=== PATIENT | female | born 1945 | race Two or more races ===

== ENCOUNTER 2020-05-04 10:10 | Outpatient (REF) | payer MEDICARE, MEDICAID, SELFPAY ==
[2020-05-04 10:46] LABS: MANUAL DIFF FLAG NO
[2020-05-04 10:53] LABS: Basophils Absolute Auto 0.1 X10*3/uL (0.0-0.2); Basophils Percent Auto 0.7 % (0-2); Eosinophils Absolute Auto 0.2 X10*3/uL (0.0-0.4); Eosinophils Percent Auto 3.2 % (0-4); Hematocrit 38.3 % (37-47); Hemoglobin 12.4 g/dl (12.0-16.0); Imm Gran Abs Auto 0.03 X10*3/uL (0.00-0.03); Imm Gran Pct Auto 0.4 % (0.0-0.4); Lymphocytes Absolute Auto 2.2 X10*3/uL (1.2-4.9); Lymphocytes Percent Auto 30.2 % (20-40); Mean Corpuscular HGB Conc 32.4 g/dl (31.0-35.0); Mean Corpuscular Hemoglobin 28.4 pg (27.0-33.0); Mean Corpuscular Volume 87.8 fL (80-98); Mean Platelet Volume 10.3 fL (9.4-12.3); Monocytes Absolute Auto 0.5 X10*3/uL (0.1-1.2); Monocytes Percent Auto 7.1 % (2-11); Neutrophils Absolute Auto 4.3 X10*3/uL (2.0-8.3); Neutrophils Percent Auto 58.4 % (45-73); Platelet Count 288 X10*3/uL (160-400); Red Blood Count 4.36 X10*6/uL (4.20-5.50); Red Cell Distribution Width 14.3 % (11.0-16.0); White Blood Count 7.4 X10*3/uL (4.8-10.8)
[2020-05-04 11:32] LABS: Estimated Average Glucose 120 mg/dL; Hemoglobin A1c % 5.8 %
[2020-05-04 11:46] LABS: Alanine Aminotransferase 17 U/L (0-31); Alkaline Phosphatase 72 U/L (39-117); Anion Gap 15 (12-20); Aspartate Amino Transferase 15 U/L (5-31); Bilirubin Total 0.8 mg/dL (0.0-1.0); Blood Urea Nitrogen 18 mg/dL (9-16); Calcium 9.2 mg/dL (8.4-10.2); Carbon Dioxide 30 mmol/L (22-29); Chloride 100 mmol/L (96-108); Cholesterol 184 mg/dL; Estimated Glomerular Filt Rate 58; Glucose Fasting 101 mg/dL (60-99); HDL Cholesterol 52 mg/dL; LDL Cholesterol Calculated 107 mg/dl; Potassium 4.2 mmol/l (3.3-5.1); Sodium 141 mmol/L (135-145); Total Protein 6.9 g/dL (6.5-8.0); Triglycerides 128 mg/dL
[2020-05-04 11:53] LABS: Microalbum/Creatinine Ratio Ur 7.2 ug/mg cr
== END 2020-05-04 10:11 | disposition home or self-care (01) ==
LOC: HO.LAB 10:10
PROVIDERS: PCP Physician Assistant; Visit Provider Physician Assistant
DX: E11.9 Type 2 diabetes mellitus without complications (principal); E78.2 Mixed hyperlipidemia; I10 Essential (primary) hypertension
CPT/HCPCS: 36415; 80053; 80061; 82043; 83036; 84443; 85025

== ENCOUNTER 2020-05-20 08:40 | Outpatient (REF) | payer MEDICARE, MEDICAID, SELFPAY ==
--- NOTE | ~2020-05-20 | XR_ITS ---
EXAMINATION: XR CHEST CLINICAL INFORMATION: Cough COMPARISON: Previous chest CTA September 2007 and chest x-ray October 2006 TECHNIQUE: 2 views of the chest were obtained. FINDINGS: The cardiac silhouette is slightly enlarged but stable. Hilar and mediastinal contours are unremarkable. The lungs are clear. There is no pleural effusion or pneumothorax. There are degenerative changes of the spine. XR/XR chest 2V IMPRESSION: Slightly enlarged cardiac silhouette. No evidence for acute disease in the chest.
== END 2020-05-20 08:41 | disposition home or self-care (01) ==
LOC: HO.LAB 08:40
PROVIDERS: PCP Physician Assistant; Visit Provider Physician Assistant
DX: R05 Cough (principal)
CPT/HCPCS: 71046

== ENCOUNTER 2020-07-21 11:49 | Outpatient (REF) | payer MEDICARE, MEDICAID, SELFPAY ==
--- NOTE | ~2020-07-21 | MM_ITS ---
EXAMINATION: MM SCREENING DIGITAL BREAST TOMOSYNTHESIS, BILATERAL CLINICAL INFORMATION: Screening. Asymptomatic. The lifetime risk of breast cancer based on the Tyrer-Cuzick Model is 3%. COMPARISON: Mammography: 09/10/2018, 03/15/2017, 02/25/2017 TECHNIQUE: Digital breast tomosynthesis is performed in both the craniocaudal and mediolateral oblique views along with computer-aided detection (CAD). Synthesized 2D images are generated from the tomosynthesis. FINDINGS: There are scattered areas of fibroglandular density (ACR BI-RADS breast composition Category b). There is no significant mass or architectural abnormality or developing density. Biopsy clip marker again noted central left breast. The axilla and skin contours are unremarkable. Again, there are multiple bilateral ductal secretory calcifications again seen. The right breast has increased calcifications mid outer quadrant, some are likely vascular and some may be early ductal secretory. Patient will be recalled to further characterize. MM/MM tomosynthesis screening BI IMPRESSION: 1. Right: Increased calcifications mid outer right breast superimposed upon other chronic ductal secretory calcifications. 2. Left: No mammographic evidence of malignancy. ASSESSMENT: BI-RADS 0: Incomplete - Need Additional Imaging Evaluation RECOMMENDATION: 1. Additional views of the right breast (magnification CC, magnification ML). 2. Radiology department staff will contact the patient for additional imaging. This patient's information was entered into a reminder system with a target due date for their next mammogram.
== END 2020-07-21 11:50 | disposition home or self-care (01) ==
LOC: HO.MAMMO 11:49
PROVIDERS: PCP Physician Assistant; Visit Provider Obstetrics & Gynecology Female Pelvic Medicine and Reconstructive Surgery
DX: Z12.31 Encounter for screening mammogram for malignant neoplasm of breast (principal)
CPT/HCPCS: 77063; 77067

== ENCOUNTER 2020-08-10 10:03 | Outpatient (REF) | payer MEDICARE, MEDICAID, SELFPAY ==
--- NOTE | ~2020-08-10 | MM_ITS ---
EXAMINATION: MM DIAGNOSTIC DIGITAL MAMMOGRAPHY, RIGHT CLINICAL INFORMATION: Recall from screening for increased calcifications mid outer right breast superimposed upon other chronic ductal secretory calcifications. Prior history contralateral benign left breast stereotactic biopsy 07/19/2006. COMPARISON: Mammography: 07/21/2020, 09/10/2018. TECHNIQUE: Digital mammography is performed in the following views: Magnification CC x3, magnification ML x2. FINDINGS: There are scattered areas of fibroglandular density (ACR BI-RADS breast composition Category b). The additional views confirm new heterogeneous segmental calcifications in the outer right breast. Calcifications are in small groups at the anterior to mid extent and in ductal distribution mid to posterior extent. They span at least 6 cm in length anterior to posterior. Results are discussed with the patient at time of visit. Stereotactic sampling is recommended. Would consider sampling at two locations to insure more comprehensive sampling of the finding. MM/MM added views RT IMPRESSION: New subsegmental heterogeneous calcifications outer right breast. ASSESSMENT: BI-RADS 4: Suspicious RECOMMENDATION: Stereotactic sampling segmental heterogeneous right breast calcifications, preferably at two locations if patient able.
== END 2020-08-10 10:04 | disposition home or self-care (01) ==
LOC: HO.MAMMO 10:03
PROVIDERS: Visit Provider Obstetrics & Gynecology Female Pelvic Medicine and Reconstructive Surgery
DX: R92.1 Mammographic calcification found on diagnostic imaging of breast (principal)
CPT/HCPCS: 77065

== ENCOUNTER 2020-08-27 10:00 | Outpatient (REF) | payer MEDICARE, MEDICAID, SELFPAY ==
--- NOTE | ~2020-08-27 | MM_ITS ---
EXAMINATION: STEREOTACTIC TOMOSYNTHESIS-GUIDED VACUUM-ASSISTED BREAST BIOPSY x2, RIGHT SPECIMEN RADIOGRAPH, RIGHT POST PROCEDURE DIGITAL MAMMOGRAM, RIGHT CLINICAL INFORMATION: Indeterminate regions of calcifications.. COMPARISON: August 10, 2020 and studies dating back to October 08, 2015. TECHNIQUE/PROCEDURE: Informed consent was obtained from the patient after discussion of the benefits, risks, and alternatives to biopsy today. Patient appeared to understand. Gave opportunity for questions. Patient signed consent form. BIOPSY TABLE: [employer] Affirm Prone Biopsy System. LESION: 2 groupings of calcifications within the upper outer aspect of the right breast. LOCAL ANESTHESIA: 20 mL 1% lidocaine; 20 mL 1% lidocaine with epinephrine. DERMATOTOMY: 2 skin fazal dermatotomies performed. NEEDLE: [employer] 9-gauge vacuum assisted core biopsy device. APPROACH: craniocaudal. TARGETING: Digital breast tomosynthesis used for targeting. CORES: 12 at each of the 2 sites. CLIP: Buckle at the closest site to the nipple and cork at the more posterior positioning. SPECIMEN RADIOGRAPH: Specimen radiograph is taken in separate room using digital mammography. The index calcifications are in the excised cores. POST PROCEDURE UNILATERAL DIGITAL MAMMOGRAM: The post biopsy mammogram is performed in separate room using separate digital mammography equipment from the biopsy procedure. 2 views are obtained. There are scattered areas of fibroglandular density (breast composition category: b). The clip marker is in position. The calcifications are decreased at the biopsy sites. The patient tolerated the procedure well. No immediate complications. Home instructions reviewed with the patient. Final pathology results are pending. MM/MM stereotactic biopsy RT IMPRESSION: 1. Digital tomosynthesis-guided core biopsy x2 right breast with clip placement. 2. Specimen radiograph taken and post procedure mammogram. There is satisfactory positioning of the biopsy clips. 3. Final pathology results pending. An addendum report will be issued.
--- NOTE | ~2020-08-27 | MM_ITS ---
EXAMINATION: STEREOTACTIC TOMOSYNTHESIS-GUIDED VACUUM-ASSISTED BREAST BIOPSY x2, RIGHT SPECIMEN RADIOGRAPH, RIGHT POST PROCEDURE DIGITAL MAMMOGRAM, RIGHT CLINICAL INFORMATION: Indeterminate regions of calcifications.. COMPARISON: August 10, 2020 and studies dating back to October 08, 2015. TECHNIQUE/PROCEDURE: Informed consent was obtained from the patient after discussion of the benefits, risks, and alternatives to biopsy today. Patient appeared to understand. Gave opportunity for questions. Patient signed consent form. BIOPSY TABLE: [employer] Affirm Prone Biopsy System. LESION: 2 groupings of calcifications within the upper outer aspect of the right breast. LOCAL ANESTHESIA: 20 mL 1% lidocaine; 20 mL 1% lidocaine with epinephrine. DERMATOTOMY: 2 skin fazal dermatotomies performed. NEEDLE: [employer] 9-gauge vacuum assisted core biopsy device. APPROACH: craniocaudal. TARGETING: Digital breast tomosynthesis used for targeting. CORES: 12 at each of the 2 sites. CLIP: Buckle at the closest site to the nipple and cork at the more posterior positioning. SPECIMEN RADIOGRAPH: Specimen radiograph is taken in separate room using digital mammography. The index calcifications are in the excised cores. POST PROCEDURE UNILATERAL DIGITAL MAMMOGRAM: The post biopsy mammogram is performed in separate room using separate digital mammography equipment from the biopsy procedure. 2 views are obtained. There are scattered areas of fibroglandular density (breast composition category: b). The clip marker is in position. The calcifications are decreased at the biopsy sites. The patient tolerated the procedure well. No immediate complications. Home instructions reviewed with the patient. Final pathology results are pending. MM/MM stereotactic biopsy ea add IMPRESSION: 1. Digital tomosynthesis-guided core biopsy x2 right breast with clip placement. 2. Specimen radiograph taken and post procedure mammogram. There is satisfactory positioning of the biopsy clips. 3. Final pathology results pending. An addendum report will be issued.
== END 2020-08-27 10:01 | disposition home or self-care (01) ==
LOC: HO.MAMMO 10:00
PROVIDERS: Visit Provider Obstetrics & Gynecology Female Pelvic Medicine and Reconstructive Surgery
DX: R92.8 Other abnormal and inconclusive findings on diagnostic imaging of breast (principal)
CPT/HCPCS: 19081; 19082; 88305; 88341; 88342; 88360; A4648

== ENCOUNTER → 2020-09-15 08:38 | Outpatient (BNVA) | payer MEDICARE, MEDICAID, SELFPAY | PROVIDERS: PCP Physician Assistant; Referring Provider Physician Assistant; Visit Provider Surgery | DX: C50.911 Malignant neoplasm of unspecified site of right female breast (principal) | CPT/HCPCS: 99202 ==

== ENCOUNTER 2021-02-05 11:21 | Outpatient (REF) | payer MEDICARE, MEDICAID, SELFPAY ==
--- NOTE | ~2021-02-05 | XR_ITS ---
EXAMINATION: XR KNEE, LEFT CLINICAL INFORMATION: Pain in left knee COMPARISON: 10/21/2015 TECHNIQUE: Four views of the left knee. This includes standing AP, lateral, and tunnel views. FINDINGS: No fracture or subluxation. Severe medial compartment joint space narrowing. Prominent tricompartmental marginal osteophytes. Small joint effusion. 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
== END 2021-02-05 11:22 | disposition home or self-care (01) ==
LOC: HO.XRAY 11:21
PROVIDERS: PCP Physician Assistant; Visit Provider Physician Assistant
DX: M25.562 Pain in left knee (principal)
CPT/HCPCS: 73564

== ENCOUNTER 2021-03-06 09:17 | Outpatient (REF) | payer MEDICARE, MEDICAID, SELFPAY ==
[2021-03-06 10:37] LABS: Hematocrit 39.3 % (37.0-47.0); Hemoglobin 12.5 g/dl (12.0-16.0); Mean Corpuscular HGB Conc 31.8 g/dl (31.0-35.0); Mean Corpuscular Hemoglobin 26.5 pg (27.0-33.0); Mean Corpuscular Volume 83.3 fL (80.0-98.0); Mean Platelet Volume 10.6 fL (9.4-12.3); Platelet Count 328 X10*3/uL (160-400); Red Blood Count 4.72 X10*6/uL (4.20-5.50); Red Cell Distribution Width 14.8 % (11.0-16.0); White Blood Count 7.6 X10*3/uL (4.8-10.8)
[2021-03-06 10:42] LABS: Estimated Average Glucose 117 mg/dL; Hemoglobin A1C 131.7052 umol/L; Hemoglobin A1c % 5.7 %
[2021-03-06 10:53] LABS: Alanine Aminotransferase 16 U/L (0-31); Albumin Level 4.1 g/dL (3.5-5.0); Alkaline Phosphatase 75 U/L (39-117); Anion Gap 15 (12-20); Aspartate Amino Transferase 17 U/L (5-31); Bilirubin Total 0.9 mg/dL (0.0-1.0); Blood Urea Nitrogen 14 mg/dL (9-16); Carbon Dioxide 27 mmol/L (22-29); Chloride 106 mmol/L (96-108); Cholesterol 185 mg/dL; Estimated Glomerular Filt Rate 58; Glucose Fasting 103 mg/dL (60-99); HDL Cholesterol 50 mg/dL; LDL Cholesterol Calculated 104 mg/dl; Potassium 4.6 mmol/L (3.3-5.1); Sodium 143 mmol/L (135-145); Triglycerides 157 mg/dL
[2021-03-06 11:17] LABS: TSH reflex Free T4 1.23 uIU/mL (0.32-4.0)
== END 2021-03-06 09:18 | disposition home or self-care (01) ==
LOC: HO.LAB 09:17
PROVIDERS: PCP Physician Assistant; Visit Provider Physician Assistant
DX: E11.9 Type 2 diabetes mellitus without complications (principal); E78.2 Mixed hyperlipidemia; I10 Essential (primary) hypertension
CPT/HCPCS: 36415; 80053; 80061; 83036; 84443; 85027

== ENCOUNTER 2021-03-08 08:20 | Outpatient (REF) | payer MEDICARE, MEDICAID, SELFPAY ==
--- NOTE | ~2021-03-08 | XR_ITS ---
EXAMINATION: XR KNEE AP STANDING CLINICAL INFORMATION: Pain COMPARISON: Left knee x-ray January 2021 and right knee x-ray December 2015 TECHNIQUE: AP bilateral standing view of the knees was obtained. FINDINGS: There is bilateral medial femoral tibial joint space narrowing, osteophyte formation and varus angulation, left greater than right. No fracture or dislocation is seen. Soft tissues are unremarkable. XR/XR knee standing BI IMPRESSION: Degenerative changes at the medial femoral tibial joint, left greater than right
== END 2021-03-08 08:21 | disposition home or self-care (01) ==
LOC: HO.HOSX 08:20
PROVIDERS: Visit Provider Orthopaedic Surgery
DX: M17.0 Bilateral primary osteoarthritis of knee (principal); E11.9 Type 2 diabetes mellitus without complications
CPT/HCPCS: 20610; 73565; 99202; J1100

== ENCOUNTER → 2021-06-07 10:07 | Outpatient (BNVA) | payer MEDICARE, MEDICAID, SELFPAY | PROVIDERS: PCP Physician Assistant; Visit Provider Orthopaedic Surgery | DX: M17.0 Bilateral primary osteoarthritis of knee (principal); E11.9 Type 2 diabetes mellitus without complications | CPT/HCPCS: 20610; 99212; J1100 ==

== ENCOUNTER 2021-07-01 17:00 | Outpatient (RCR) | payer MEDICARE, MEDICAID, SELFPAY | END 2021-12-30 11:46 | disposition home or self-care (01) | LOC: HO.PTCHIC 17:00 | PROVIDERS: PCP Physician Assistant; Visit Provider Internal Medicine | DX: M62.81 Muscle weakness (generalized) (principal); C50.919 Malignant neoplasm of unspecified site of unspecified female breast; Z17.0 Estrogen receptor positive status [ER+]; Z98.890 Other specified postprocedural states | CPT/HCPCS: 97110; 97140; 97162 ==

== ENCOUNTER 2021-09-29 13:45 | Outpatient (REF) | payer MEDICARE, MEDICAID, SELFPAY ==
--- NOTE | ~2021-09-29 | MM_ITS ---
EXAMINATION: MM SCREENING DIGITAL BREAST TOMOSYNTHESIS, LEFT CLINICAL INFORMATION: Right mastectomy for breast cancer. Due for yearly. COMPARISON: Mammography: 07/21/2020, 09/10/2018, 02/25/2017 TECHNIQUE: Digital breast tomosynthesis is performed in both the craniocaudal and mediolateral oblique views along with computer-aided detection (CAD). Synthesized 2D images are generated from the tomosynthesis. FINDINGS: There are scattered areas of fibroglandular density (ACR BI-RADS breast composition Category b). Parenchymal pattern is similar to prior studies. No developing density or interval mass or architectural abnormality. There is biopsy clip marker again seen central mid 9:00 position. Multiple ductal secretory calcifications and some scattered punctate benign round calcifications are again noted. The axilla and skin contours are unremarkable. MM/MM tomosynthesis screening LT IMPRESSION: No mammographic evidence of malignancy. ASSESSMENT: BI-RADS 2: Benign RECOMMENDATION: Routine annual mammography screening. This patient's information was entered into a reminder system with a target due date for their next mammogram.
== END 2021-09-29 13:46 | disposition home or self-care (01) ==
LOC: HO.MAMMO 13:45
PROVIDERS: PCP Physician Assistant; Visit Provider Physician Assistant
DX: Z12.31 Encounter for screening mammogram for malignant neoplasm of breast (principal)
CPT/HCPCS: 77063; 77067

== ENCOUNTER 2021-10-04 10:18 | Outpatient (REF) | payer MEDICARE, MEDICAID, SELFPAY ==
[2021-10-04 10:32] LABS: MANUAL DIFF FLAG NO
[2021-10-04 11:11] LABS: Basophils Absolute Auto 0.1 X10*3/uL (0.0-0.2); Basophils Percent Auto 1.1 % (0-2); Eosinophils Absolute Auto 0.1 X10*3/uL (0.0-0.4); Eosinophils Percent Auto 1.1 % (0-4); Hematocrit 38.2 % (37.0-47.0); Hemoglobin 12.7 g/dl (12.0-16.0); Imm Gran Abs Auto 0.04 X10*3/uL (0.00-0.03); Imm Gran Pct Auto 0.5 % (0.0-0.4); Lymphocytes Absolute Auto 1.6 X10*3/uL (1.2-4.9); Lymphocytes Percent Auto 21.5 % (20-40); Mean Corpuscular HGB Conc 33.2 g/dl (31.0-35.0); Mean Corpuscular Hemoglobin 27.6 pg (27.0-33.0); Mean Platelet Volume 11.1 fL (9.4-12.3); Monocytes Absolute Auto 0.5 X10*3/uL (0.1-1.2); Monocytes Percent Auto 7.2 % (2-11); Neutrophils Absolute Auto 5.1 x10*3/uL (2.0-8.3); Neutrophils Percent Auto 68.6 % (45-73); Platelet Count 315 X10*3/uL (160-400); Red Cell Distribution Width 15.9 % (11.0-16.0); White Blood Count 7.5 X10*3/uL (4.8-10.8)
[2021-10-04 11:13] LABS: Estimated Average Glucose 111 mg/dL; Hemoglobin A1c % 5.5 %
[2021-10-04 11:43] LABS: TSH reflex Free T4 0.68 uIU/mL (0.32-4.0)
[2021-10-04 12:03] LABS: Alanine Aminotransferase 18 U/L (0-31); Albumin Level 4.1 g/dL (3.5-5.0); Alkaline Phosphatase 80 U/L (39-117); Anion Gap 14 (12-20); Aspartate Amino Transferase 20 U/L (5-31); Blood Urea Nitrogen 12 mg/dL (9-16); Calcium 9.8 mg/dL (8.4-10.2); Carbon Dioxide 27 mmol/L (22-29); Chloride 105 mmol/L (96-108); Cholesterol 190 mg/dL; Estimated Glomerular Filt Rate 60; Glucose Fasting 97 mg/dL (60-99); HDL Cholesterol 60 mg/dL; LDL Cholesterol Calculated 113 mg/dl; Potassium 4.5 mmol/L (3.3-5.1); Sodium 141 mmol/L (135-145); Triglycerides 86 mg/dL
[2021-10-04 12:52] LABS: Creatinine Urine 54.94 mg/dL; Microalbumin Urine < 5.0 mg/L
[2021-10-07 09:06] LABS: CA 27.29 19 U/mL (<38)
== END 2021-10-04 10:19 | disposition home or self-care (01) ==
LOC: HO.LAB 10:18
PROVIDERS: Internal Medicine Medical Oncology; PCP Physician Assistant; Visit Provider Physician Assistant
DX: E11.9 Type 2 diabetes mellitus without complications (principal); I10 Essential (primary) hypertension; C50.911 Malignant neoplasm of unspecified site of right female breast
CPT/HCPCS: 36415; 80053; 80061; 82043; 83036; 84443; 85025; 85027; 86300

== ENCOUNTER 2022-02-02 09:19 | Outpatient (REF) | payer MEDICARE, MEDICAID, SELFPAY ==
[2022-02-02 10:30] LABS: Estimated Average Glucose 114 mg/dL; Hemoglobin A1c % 5.6 %
[2022-02-02 11:07] LABS: Alanine Aminotransferase 15 U/L (0-31); Alkaline Phosphatase 69 U/L (39-117); Anion Gap 15 (12-20); Aspartate Amino Transferase 17 U/L (5-31); Bilirubin Total 0.8 mg/dL (0.0-1.0); Blood Urea Nitrogen 12 mg/dL (9-16); Calcium 9.4 mg/dL (8.4-10.2); Carbon Dioxide 25 mmol/L (22-29); Chloride 108 mmol/L (96-108); Cholesterol 186 mg/dL; Estimated Glomerular Filt Rate > 60; Glucose Random 92 mg/dL (60-115); HDL Cholesterol 61 mg/dL; LDL Cholesterol Calculated 105 mg/dl; Potassium 4.4 mmol/L (3.3-5.1); Sodium 144 mmol/L (135-145); Total Protein 6.7 g/dL (6.5-8.0); Triglycerides 101 mg/dL
== END 2022-02-02 09:20 | disposition home or self-care (01) ==
LOC: HO.LAB 09:19
PROVIDERS: PCP Physician Assistant; Visit Provider Nurse Practitioner Family
DX: E11.9 Type 2 diabetes mellitus without complications (principal); E78.5 Hyperlipidemia, unspecified
CPT/HCPCS: 36415; 80053; 80061; 83036

== ENCOUNTER 2022-02-15 14:08 | Outpatient (REF) | payer MEDICARE, MEDICAID, SELFPAY ==
--- NOTE | ~2022-02-15 | XR_ITS ---
EXAMINATION: XR FOOT, RIGHT CLINICAL INFORMATION: Pain in the right foot COMPARISON: Probably 22,020 TECHNIQUE: AP, lateral, and oblique views of the right foot. FINDINGS: The bones and soft tissues are normal. No fracture. Seen previously hallux valgus deformity not identified currently. Alignment is anatomic. Joint spaces are maintained. XR/XR foot RT 2V IMPRESSION: Normal right foot.
== END 2022-02-15 14:09 | disposition home or self-care (01) ==
LOC: HO.XRAY 14:08
PROVIDERS: PCP Physician Assistant; Visit Provider Physician Assistant
DX: M79.671 Pain in right foot (principal)
CPT/HCPCS: 73620

== ENCOUNTER 2022-07-29 10:15 | Outpatient (REF) | payer MEDICARE, MEDICAID, SELFPAY ==
[2022-07-29 11:03] LABS: Hematocrit 40.3 % (37.0-47.0); Hemoglobin 12.9 g/dl (12.0-16.0); Mean Corpuscular Hemoglobin 27.4 pg (27.0-33.0); Mean Corpuscular Volume 85.7 fL (80.0-98.0); Mean Platelet Volume 10.2 fL (9.4-12.3); Platelet Count 322 X10*3/uL (160-400); Red Cell Distribution Width 15.9 % (11.0-16.0)
[2022-07-29 11:17] LABS: Estimated Average Glucose 111 mg/dL; Hemoglobin A1c % 5.5 %
[2022-07-29 11:41] LABS: Alanine Aminotransferase 12 U/L (0-31); Alkaline Phosphatase 61 U/L (39-117); Anion Gap 13 (12-20); Aspartate Amino Transferase 14 U/L (5-31); Bilirubin Total 0.9 mg/dL (0.0-1.0); Blood Urea Nitrogen 13 mg/dL (9-16); Calcium 9.7 mg/dL (8.4-10.2); Carbon Dioxide 28 mmol/L (22-29); Chloride 107 mmol/L (96-108); Estimated Glomerular Filt Rate > 60; Glucose Fasting 83 mg/dL (60-99); Sodium 143 mmol/L (135-145); Total Protein 6.5 g/dL (6.5-8.0)
[2022-07-29 11:57] LABS: TSH reflex Free T4 0.89 uIU/mL (0.32-4.0)
[2022-07-29 13:18] LABS: Creatinine Urine 61.17 mg/dL; Microalbumin Urine < 5.0 mg/L
== END 2022-07-29 10:16 | disposition home or self-care (01) ==
LOC: HO.LAB 10:15
PROVIDERS: PCP Physician Assistant; Visit Provider Physician Assistant
DX: E11.9 Type 2 diabetes mellitus without complications (principal); I10 Essential (primary) hypertension
CPT/HCPCS: 36415; 80053; 82043; 83036; 84443; 85027

== ENCOUNTER → 2022-10-07 09:01 | Outpatient (REF) | payer MEDICARE, MEDICAID, SELFPAY ==
--- NOTE | 2022-10-07 10:51 | ECG_ITS ---
Test Reason : afib Blood Pressure : / mmHG Vent. Rate : 097 BPM Atrial Rate : 000 BPM P-R Int : 000 ms QRS Dur : 104 ms QT Int : 344 ms P-R-T Axes : 000 -08 010 degrees QTc Int : 436 ms Atrial fibrillation Right bundle branch block Abnormal ECG When compared with ECG of 28-DEC-2011 12:55, Atrial fibrillation has replaced Sinus rhythm Referred By: Karyna Gagnon Electronically Signed By:Timur Waterman
== END ==
LOC: HO.CARD 09:01
PROVIDERS: PCP Physician Assistant; Visit Provider Physician Assistant
DX: R07.9 Chest pain, unspecified (principal); I48.91 Unspecified atrial fibrillation
CPT/HCPCS: 93005; 93306; Q9957

== ENCOUNTER 2022-10-16 15:13 | Inpatient (IN) | payer MEDICARE, MEDICAID, SELFPAY ==
--- NOTE | ~2022-10-16 | MR_ITS ---
EXAMINATION: MR BRAIN WITHOUT AND WITH CONTRAST CLINICAL INFORMATION: Possible seizure versus stroke. COMPARISON: CT head 10/16/2022. TECHNIQUE: Multiplanar MR imaging of the brain was performed without and with contrast. A total of 7.5 mL Gadavist was utilized for this examination. FINDINGS: There is a tiny focus of restricted diffusion involving the left parietal lobe best visualized on axial image 23 of 30 series 4. In addition to this acute finding there are numerous foci of T2 FLAIR signal hyperintensity within the periventricular white matter that most likely represent a chronic manifestation of small vessel ischemia. No pathological magnetic susceptibility artifact. Intracranial vascular flow voids are grossly maintained. Postcontrast images reveal no abnormal intracranial mass or enhancement. There is no intracranial mass effect or midline shift. Lateral and third ventricles are normal. No hydrocephalus. Midline structures including the cervicomedullary junction are normal. No acute bone marrow signal changes. There is no mastoid or middle ear effusion. No active paranasal sinus disease. Globes and orbits are grossly symmetric. MR/MR head/brain wo/w con IMPRESSION: There is a tiny acute white matter infarct involving the left parietal lobe. This finding is superimposed upon numerous chronic small vessel ischemic changes within the periventricular white matter. No abnormal intracranial mass or enhancement.
--- NOTE | ~2022-10-16 | US_ITS ---
EXAMINATION: US EXTRACRANIAL CAROTID DUPLEX, BILATERAL CLINICAL INFORMATION: Transient ischemic attack (TIA). COMPARISON: None available. TECHNIQUE: Real-time ultrasound and Doppler techniques (integrating B-mode 2-D vascular images, Doppler spectral analysis and color-flow Doppler imaging) were utilized to interrogate the extracranial carotid arteries, the vertebral arteries and proximal subclavian arteries bilaterally. The degree of stenosis is determined by criteria similar to NASCET. FINDINGS: Right Side: 1. There is mild atherosclerotic plaque seen in the bifurcation/proximal ICA region. 2. The common carotid artery PSV proximally is 86 cm/s and distally 75 cm/s. 3. The proximal internal carotid artery velocities are 79 cm/s systolic and 17 cm/s diastolic. 4. The proximal external carotid artery PSV is 118 cm/s. 5. The vertebral artery shows antegrade flow. 6. The subclavian artery waveforms are normal. Left Side: 1. There is mild atherosclerotic plaque seen in the bifurcation/proximal ICA region. 2. The common carotid artery PSV proximally is 95 cm/s and distally 72 cm/s. 3. The proximal internal carotid artery velocities are 66 cm/s systolic and 17 cm/s diastolic. 4. The proximal external carotid artery PSV is 106 cm/s. 5. The vertebral artery shows antegrade flow. 6. The subclavian artery waveforms are normal. US/US carotid duplex BI IMPRESSION: 1. RIGHT: Minimal, non-hemodynamically significant stenosis of the proximal right internal carotid artery corresponding to a 0-49% stenosis by velocity criteria. 2. LEFT: Minimal, non-hemodynamically significant stenosis of the proximal left internal carotid artery corresponding to a 0-49% stenosis by velocity criteria. 3. There is no change in the category severity of disease when compared to the previous.
[2022-10-16 15:18] VITALS: BP 110/53; PULSE 102; O2SAT 98
[2022-10-16 15:33] VITALS: BP 108/45; PULSE 98; RESP 16; TEMP 37; O2SAT 95; BMI 37.6
[2022-10-16 16:27] VITALS: BP 116/95; PULSE 99; RESP 19; TEMP 36.8; O2SAT 95
--- NOTE | 2022-10-16 17:57 | ED.CHESTPAIN ---
HPI - Chest Pain General Chief Complaint: Altered Mental Status Stated Complaint: ? stroke Time Seen by Provider: 10/16/22 16:31 Source: patient Mode of arrival: ambulatory Limitations: no limitations History of Present Illness HPI narrative: Patient 77 years old with history of hypertension diabetes hyperlipidemia depression breast cancer status post mastectomy comes here for 4 days of left-sided chest pain which is continues get worse on movement no shortness of breath no cough prior to arrival patient was sitting and had a near-syncope episode patient vision got blurred and everything went vargas. No seizure activity no chest pain or palpitations patient had pedicure and many care with neck manipulation was started 4 days ago since then been complaining of pain in the left side of the chest which is sharp in character no nausea no vomiting no shortness of breath denies any palpitation patient had echo and EKG done on 10/07 which shows AFib normal LV function patient unaware of AFib Related Data Home Medications Medication Instructions Recorded Confirmed letrozole 2.5 mg tablet 2.5 mg PO DAILY 12/10/20 08/17/22 kybjirmw-rce-drrsz acid 500 tab PO 12/10/20 08/17/22 mcg-lycopene 300 mcg-lutein 250 mcg tablet ([facility]) Previous Rx's Medication Instructions Recorded simethicone 180 mg capsule (Gas 180 mg PO BID 30 days #60 caps 03/04/20 Relief (simethicone)) nystatin 100,000 unit/gram topical 1 appl topical BID #60 grams 04/09/20 powder (Nystop) lancets 28 gauge (FreeStyle #100 ea 11/26/20 Lancets) blood sugar diagnostic (FreeStyle #50 ea 11/27/20 Lite Strips) blood-glucose meter (FreeStyle #1 ea 11/27/20 Lite Meter kit) Ventolin HFA 90 mcg/actuation 2 puff PO Q6H PRN shortness of 05/03/21 aerosol inhaler (albuterol sulfate) breath or wheezing 30 days #18 grams calcium carbonate 500 mg calcium 500 mg PO BID 30 days #60 tabs 06/21/21 (1,250 mg) tablet (Oyster Shell Calcium) loratadine 10 mg tablet 10 mg PO DAILY 90 days #90 tabs 12/02/21 fluticasone propionate 50 1 spray intranasal DAILY 30 days 02/15/22 mcg/actuation nasal #16 grams spray,suspension losartan 100 mg tablet 100 mg PO DAILY 30 days #90 tabs 05/27/22 cholecalciferol (vitamin D3) 50 50 mcg PO DAILY 90 days #90 caps 06/14/22 mcg (2,000 unit) capsule metformin 500 mg tablet,extended 500 mg PO BID 90 days #180 tabs 07/01/22 release 24 hr oxybutynin chloride 10 mg 10 mg PO DAILY 30 days #30 tabs 07/01/22 tablet,extended release 24 hr triamcinolone acetonide 0.1 % 1 appl topical BEDTIME 30 days #80 07/06/22 topical cream grams pantoprazole 40 mg tablet,delayed 40 mg PO DAILY #90 tabs 07/26/22 release acetaminophen 650 mg 1,300 mg PO Q8H PRN pain #84 tabs 08/17/22 tablet,extended release (Arthritis Pain Relief (acetaminophen) ER) diclofenac sodium 3 % topical gel 1 appl topical BID 30 days #100 08/17/22 grams ibuprofen 800 mg tablet 800 mg PO Q8H PRN pain 10 days #30 08/17/22 tabs fluoxetine 20 mg capsule 20 mg PO DAILY 30 days #30 caps 09/19/22 atorvastatin 10 mg tablet 10 mg PO DAILY #90 tabs 09/24/22 Allergies Allergy/AdvReac Type Severity Reaction Status Date / Time Penicillins [PENICILLINS] Allergy Intermediate RASH Verified 08/17/22 10:21 pravastatin Allergy Unknown Unknown Verified 08/17/22 10:21 Review of Systems Review of Systems: Yes all other systems are reviewed and are negative [facility] Past Medical History Medical History Asthma Depression DMII (diabetes mellitus, type 2) HAYLIE (generalized anxiety disorder) HLD (hyperlipidemia) HTN (hypertension) Invasive ductal carcinoma of breast, stage 3 Surgical History History of bladder surgery History of breast biopsy History of colonoscopy History of lumpectomy of right breast History of tubal ligation Hx of total mastectomy of right breast Family History Family History Father No problems noted. Mother No problems noted. Social History Social History (Reviewed 10/16/22 @ 20:55 by RICO Wolf Housing: House Alcohol intake: never Patient Tobacco Use Status: Former Tobacco user Quit Date: 12 years ago Smoked in Last 30 Days: No e-Cigarette/Vaping Use: Never Used Second Hand Smoke Exposure: Yes Use of substances other than those prescribed or required for medical reasons: No Advance Directives: No Advance Directives Information Provided: No Nutrition Risks: No Nutritional Risk service: No Current occupational status: disabled Cognitive needs: No Hearing needs: No Vision needs: Yes (glasses) Physical Exam Vital Signs: Vital Signs: Last Vital Signs Temp 98.8 F 10/16/22 21:44 Pulse 95 10/16/22 21:44 Resp 17 10/16/22 21:44 BP 123/65 10/16/22 21:44 Pulse Ox 97 10/16/22 21:44 O2 Del Method Room Air 10/16/22 21:44 BMI result Body Mass Index 37.6 Appearance: Alert. Oriented X3. No acute distress. Eyes: Pallor or icterus ENT: Pharynx normal. Oral Mucosa moist Neck: Normal inspection. Neck supple. CVS: Normal heart rate and rhythm. Pulses normal. Left chest wall tenderness+ Respiratory: No respiratory distress. Equal air entry bilateral, no wheezing/rales/rhonchi Abdomen: Soft and nontender. Bowel sounds are present, no mass palpable, Skin: Skin warm and dry. Normal skin color. Normal skin turgor. Extremities: No lower extremity edema. No calf tenderness Neuro: Oriented X 3. No motor deficit. No sensory deficit.No cerebellar signs , cranial nerves II-XII intact Medications Administered Generic Name Dose Route Start Last Admin Trade Name Freq PRN Reason Stop Dose Admin Metoprolol Tartrate 12.5 mg 10/16/22 21:00 10/16/22 21:51 Metoprolol Tartrate 12.5 Mg Halftab PO 12.5 mg BID COLT Administration Protocol Sodium Chloride 3 ml 10/17/22 00:00 10/16/22 23:17 0.9 % Sodium Chloride Flush 3 Ml Syringe IVFLUSH 3 ml QSHIFT COLT Administration Discontinued Medications Generic Name Dose Route Start Last Admin Trade Name Freq PRN Reason Stop Dose Admin Apixaban 5 mg 10/16/22 19:19 10/16/22 19:36 Apixaban 5 Mg Tablet PO 10/16/22 19:20 5 mg ONCE ONE Administration Aspirin 162 mg 10/16/22 20:34 10/16/22 21:51 Aspirin Enteric Coated 81 Mg Tablet. PO 10/16/22 20:35 162 mg ONCE ONE Administration Methocarbamol 750 mg 10/16/22 22:25 10/16/22 23:12 Methocarbamol 750 Mg Tablet PO 10/16/22 22:26 750 mg ONCE ONE Administration Metoprolol Tartrate 5 mg 10/16/22 19:21 10/16/22 19:36 Metoprolol Tartrate 5 Mg/5 Ml Vial IVPUSH 10/16/22 19:22 5 mg ONCE ONE Administration Medical Decision Making Medical Decision Making [facility] Narrative: Patient with new onset AFib with near-syncope episode will admit patient for further evaluation start on Eliquis Differential Diagnosis Differential Diagnoses: The differential diagnosis associated with the presentation includes Cardiac arrhythmias/ACS/hypertension/encephalopathy Consult Healthcare Provider Management of the patient was discussed with: Hospitalist Lab Data [facility] Lab Attestation statement: I reviewed the patient's lab results. 10/16/22 16:06 10/16/22 16:06 Labs: Lab Results 10/16/22 10/16/22 10/16/22 Range/Units 16:05 16:06 16:06 WBC 14.0 H (4.8-10.8) X10*3/uL RBC 3.98 L (4.20-5.50) X10*6/uL Hgb 10.9 L (12.0-16.0) g/dl Hct 33.9 L (37.0-47.0) % MCV 85.2 (80.0-98.0) fL MCH 27.4 (27.0-33.0) pg MCHC 32.2 (31.0-35.0) g/dl RDW 14.7 (11.0-16.0) % Plt Count 312 (160-400) X10*3/uL MPV 10.0 (9.4-12.3) fL Immature Gran % (Auto) 0.6 H (0.0-0.4) % Neut % (Auto) 77.1 H (45-73) % Lymph % (Auto) 11.1 L (20-40) % [place] % (Auto) 10.0 (2-11) % Eos % (Auto) 0.7 (0-4) % Baso % (Auto) 0.5 (0-2) % Lymph # (Auto) 1.6 (1.2-4.9) X10*3/uL [place] # (Auto) 1.4 H (0.1-1.2) X10*3/uL Eos # (Auto) 0.1 (0.0-0.4) X10*3/uL Baso # (Auto) 0.1 (0.0-0.2) X10*3/uL Abs Immat Gran (auto) 0.08 H (0.00-0.03) X10*3/uL Absolute Neuts (auto) 10.8 H (2.0-8.3) x10*3/uL Absolute Nucleated RBC 0.000 (0.0-0.012) X10*3/uL Nucleated RBC % (auto) 0.0 (0.0-0.2) /100WBC PT (10.0-13.1) SEC INR (0.9-1.1) APTT (26.0-36.4) SEC Sodium 140 (135-145) mmol/L Potassium 3.5 D (3.3-5.1) mmol/L Chloride 106 (96-108) mmol/L Carbon Dioxide 23 (22-29) mmol/L Anion Gap 15 (12-20) BUN 13 (9-16) mg/dL Creatinine 0.90 (0.5-1.4) mg/dL Estim Creat Clear Calc 57.4 Estimated GFR > 60 POC Glucose 93 (60-115) mg/dL Random Glucose 107 (60-115) mg/dL Calcium 10.2 (8.4-10.2) mg/dL Troponin I High Sens (<3.5-17.0) ng/L Triglycerides 74 mg/dL Cholesterol 148 mg/dL LDL Cholesterol, Calc 73 mg/dl HDL Cholesterol 61 mg/dL TSH 1.11 (0.32-4.0) uIU/mL Urine Color Urine Appearance Urine pH (5.0-9.0) Ur Specific [place] (1.005-1.025) Urine Protein (Neg-Trace) mg/dL Urine Glucose (UA) (Negative) mg/dL Urine Ketones (Negative) mg/dL Urine Blood (Negative) Urine Nitrite (Negative) Ur Leukocyte Esterase (Negative) Ethyl Alcohol < 10 mg/dL 10/16/22 10/16/22 10/16/22 Range/Units 16:06 17:46 20:05 WBC (4.8-10.8) X10*3/uL RBC (4.20-5.50) X10*6/uL Hgb (12.0-16.0) g/dl Hct (37.0-47.0) % MCV (80.0-98.0) fL MCH (27.0-33.0) pg MCHC (31.0-35.0) g/dl RDW (11.0-16.0) % Plt Count (160-400) X10*3/uL MPV (9.4-12.3) fL Immature Gran % (Auto) (0.0-0.4) % Neut % (Auto) (45-73) % Lymph % (Auto) (20-40) % [place] % (Auto) (2-11) % Eos % (Auto) (0-4) % Baso % (Auto) (0-2) % Lymph # (Auto) (1.2-4.9) X10*3/uL [place] # (Auto) (0.1-1.2) X10*3/uL Eos # (Auto) (0.0-0.4) X10*3/uL Baso # (Auto) (0.0-0.2) X10*3/uL Abs Immat Gran (auto) (0.00-0.03) X10*3/uL Absolute Neuts (auto) (2.0-8.3) x10*3/uL Absolute Nucleated RBC (0.0-0.012) X10*3/uL Nucleated RBC % (auto) (0.0-0.2) /100WBC PT 13.0 (10.0-13.1) SEC INR 1.1 (0.9-1.1) APTT (26.0-36.4) SEC Sodium (135-145) mmol/L Potassium (3.3-5.1) mmol/L Chloride (96-108) mmol/L Carbon Dioxide (22-29) mmol/L Anion Gap (12-20) BUN (9-16) mg/dL Creatinine (0.5-1.4) mg/dL Estim Creat Clear Calc Estimated GFR POC Glucose (60-115) mg/dL Random Glucose (60-115) mg/dL Calcium (8.4-10.2) mg/dL Troponin I High Sens < 2.7 (<3.5-17.0) ng/L Triglycerides mg/dL Cholesterol mg/dL LDL Cholesterol, Calc mg/dl HDL Cholesterol mg/dL TSH (0.32-4.0) uIU/mL Urine Color Yellow Urine Appearance Clear Urine pH 6.5 (5.0-9.0) Ur Specific [place] 1.010 (1.005-1.025) Urine Protein Negative (Neg-Trace) mg/dL Urine Glucose (UA) Negative (Negative) mg/dL Urine Ketones Trace (Negative) mg/dL Urine Blood Negative (Negative) Urine Nitrite Negative (Negative) Ur Leukocyte Esterase Negative (Negative) Ethyl Alcohol mg/dL 10/16/22 Range/Units 20:05 WBC (4.8-10.8) X10*3/uL RBC (4.20-5.50) X10*6/uL Hgb (12.0-16.0) g/dl Hct (37.0-47.0) % MCV (80.0-98.0) fL MCH (27.0-33.0) pg MCHC (31.0-35.0) g/dl RDW (11.0-16.0) % Plt Count (160-400) X10*3/uL MPV (9.4-12.3) fL Immature Gran % (Auto) (0.0-0.4) % Neut % (Auto) (45-73) % Lymph % (Auto) (20-40) % [place] % (Auto) (2-11) % Eos % (Auto) (0-4) % Baso % (Auto) (0-2) % Lymph # (Auto) (1.2-4.9) X10*3/uL [place] # (Auto) (0.1-1.2) X10*3/uL Eos # (Auto) (0.0-0.4) X10*3/uL Baso # (Auto) (0.0-0.2) X10*3/uL Abs Immat Gran (auto) (0.00-0.03) X10*3/uL Absolute Neuts (auto) (2.0-8.3) x10*3/uL Absolute Nucleated RBC (0.0-0.012) X10*3/uL Nucleated RBC % (auto) (0.0-0.2) /100WBC PT (10.0-13.1) SEC INR (0.9-1.1) APTT 31.9 (26.0-36.4) SEC Sodium (135-145) mmol/L Potassium (3.3-5.1) mmol/L Chloride (96-108) mmol/L Carbon Dioxide (22-29) mmol/L Anion Gap (12-20) BUN (9-16) mg/dL Creatinine (0.5-1.4) mg/dL Estim Creat Clear Calc Estimated GFR POC Glucose (60-115) mg/dL Random Glucose (60-115) mg/dL Calcium (8.4-10.2) mg/dL Troponin I High Sens (<3.5-17.0) ng/L Triglycerides mg/dL Cholesterol mg/dL LDL Cholesterol, Calc mg/dl HDL Cholesterol mg/dL TSH (0.32-4.0) uIU/mL Urine Color Urine Appearance Urine pH (5.0-9.0) Ur Specific [place] (1.005-1.025) Urine Protein (Neg-Trace) mg/dL Urine Glucose (UA) (Negative) mg/dL Urine Ketones (Negative) mg/dL Urine Blood (Negative) Urine Nitrite (Negative) Ur Leukocyte Esterase (Negative) Ethyl Alcohol mg/dL Independent Interpretation I performed an independent interpretation of an: EKG Interpretation: Atrial fibrillation with ventricular rate 99 beats per minute incomplete right bundle-branch block no acute ST T wave changes no acute ischemic Discharge Plan Discharge Clinical Impression: Atrial fibrillation, new onset, Near syncope Patient Disposition: Admitted As Inpatient
[2022-10-16 19:37] VITALS: BP 150/78; PULSE 105; RESP 23; O2SAT 94
--- NOTE | 2022-10-16 19:44 | MHC.EDTECH ---
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
--- NOTE | 2022-10-16 20:40 | PM.IMHP ---
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 This patient states that she was about to eat soup when she developed sudden onset lightheadedness and carrillo vision bilaterally. Her daughter and EMS also noted left-sided facial droop and aphasia. The patient endorsed confusion and per EMS was not following commands. Symptoms fully resolved by arrival to hospital. She is also complaining of constant neck, upper back, bilateral arm, and anterior chest pain ongoing since she received a massage at a nail salon 4 days ago. No extremity weakness or paresthesias. On arrival, vital stable. Blood pressure initially soft at 108/45, 150/78 on admission. Heart rates ranging 95-105 on monitor tech which shows atrial fibrillation. There is a leukocytosis of 14.0. Stable normocytic anemia with H/H 10.9/33.9%. Renal function baseline, electrolyte levels normal. Troponin below detectable limits. Urinalysis unremarkable. Head CT negative for any acute intracranial abnormality. EKG showed atrial fibrillation, rate 99 with incomplete right bundle branch block but no ITZEL or depressions. She did have echocardiogram ordered by PCP due to systolic murmur performed on 10/07 which showed normal LV systolic function with EF 65-70%, no regional wall motion abnormalities. At that time, EKG ordered in cardiology showed new onset atrial fibrillation. There was aortic sclerosis without obvious stenosis. No other significant valvular abnormality. In the ED, started on eliquis 5mg and given 5mg IV lopressor. Review of Systems Review of Systems: General: No fevers, malaise, unintentional weight loss HEENT: +blurred/greyed out vision. No diplopia Cardiovascular: No chest pressure, palpitations, or leg edema Respiratory: No shortness of breath, wheezing, cough GI: No abdominal pain, nausea, vomiting, diarrhea, constipation, melena, hematochezia : No dysuria, hematuria, increased urinary frequency, decreased urinary output MSK: +neck, upper back, anterior chest, bilateral shoulder pain Neuro: No headaches, weakness, paresthesias. +lightheadedness, +left facial droop, +aphasia, +confusion Skin: No rashes or lesions [facility] Medical History Asthma Depression DMII (diabetes mellitus, type 2) HAYLIE (generalized anxiety disorder) HLD (hyperlipidemia) HTN (hypertension) Invasive ductal carcinoma of breast, stage 3 Family History Father No problems noted. Mother No problems noted. Surgical History History of bladder surgery History of breast biopsy History of colonoscopy History of lumpectomy of right breast History of tubal ligation Hx of total mastectomy of right breast Social History Housing: House Alcohol intake: never Patient Tobacco Use Status: Former Tobacco user Quit Date: 12 years ago Smoked in Last 30 Days: No e-Cigarette/Vaping Use: Never Used Second Hand Smoke Exposure: Yes Use of substances other than those prescribed or required for medical reasons: No Advance Directives: No Advance Directives Information Provided: No service: No Current occupational status: disabled Cognitive needs: No Hearing needs: No Vision needs: Yes (glasses) Meds Allergies Allergy/AdvReac Type Severity Reaction Status Date / Time Penicillins [PENICILLINS] Allergy Intermediate RASH Verified 08/17/22 10:21 pravastatin Allergy Unknown Unknown Verified 08/17/22 10:21 Active Medications: Current Medications Acetaminophen (Acetaminophen 325 Mg Tablet) 650 mg PO Q6H PRN PRN Reason: Pain, Mild (Pain Scale 1-3) Aspirin (Aspirin Enteric Coated 81 Mg Tablet.) 81 mg PO DAILY COLT Aspirin (Aspirin Enteric Coated 81 Mg Tablet.) 162 mg PO ONCE ONE Stop: 10/16/22 20:35 Atorvastatin Calcium (Atorvastatin Calcium 40 Mg Tablet) 40 mg PO DAILY COLT Docusate Sodium (Docusate Sodium 100 Mg Capsule) 100 mg PO DAILY PRN PRN Reason: Constipation Ondansetron HCl (Ondansetron Hcl 4 Mg/2 Ml Vial) 4 mg IVPUSH Q8H PRN PRN Reason: Nausea and Vomiting Sodium Chloride (0.9 % Sodium Chloride Flush 3 Ml Syringe) 3 ml IVFLUSH QSHIFT COLT Tizanidine HCl (Tizanidine Hcl 4 Mg Tablet) 4 mg PO TID PRN PRN Reason: Muscle Spasm Home Medications Medication Instructions Recorded Confirmed Last Taken Type letrozole 2.5 mg tablet 2.5 mg PO DAILY 12/10/20 08/17/22 Unknown History smupbqvn-vyx-uzvdt acid 500 tab PO 12/10/20 08/17/22 Unknown History mcg-lycopene 300 mcg-lutein 250 mcg tablet ([facility]) Physical Exam Vital Signs and Narrative: Vital Signs: Last Vital Signs Temp 98.2 F 10/16/22 16:27 Pulse 105 H 10/16/22 19:37 Resp 23 H 10/16/22 19:37 BP 150/78 H 10/16/22 19:37 Pulse Ox 94 10/16/22 19:37 O2 Del Method Room Air 10/16/22 19:37 BMI result Body Mass Index 37.6 Constitutional - Awake and Alert, No apparent distress Eyes - PERRLA, EOMI Neck- midline and bilateral ttp with full rom Chest- ttp across anterior chest Cardiovascular - S1S2, RRR, No edema Respiratory - Normal lung expansion, Normal respiratory effort, No respiratory distress, CTA bilaterally Gastrointestinal - NT / ND; +BS; No rebound or guarding Extremities - no calf tenderness bilaterally, no swelling Back: bilateral upper ttp with mild midline ttp Skin - Warm/Dry Neurological - Alert & oriented x3, CN II-XII in tact, 5/5 strength BUE and BLE Psychological - Appropriate affect Results Labs 10/16/22 16:06 10/16/22 16:06 Labs: Laboratory Results - last 24 hr 10/16/22 10/16/22 10/16/22 16:05 16:06 16:06 MCV 85.2 MCH 27.4 MCHC 32.2 RDW 14.7 Plt Count 312 MPV 10.0 Immature Gran % (Auto) 0.6 H Neut % (Auto) 77.1 H Lymph % (Auto) 11.1 L [place] % (Auto) 10.0 Eos % (Auto) 0.7 Baso % (Auto) 0.5 Lymph # (Auto) 1.6 [place] # (Auto) 1.4 H Eos # (Auto) 0.1 Baso # (Auto) 0.1 Abs Immat Gran (auto) 0.08 H Absolute Neuts (auto) 10.8 H Absolute Nucleated RBC 0.000 Nucleated RBC % (auto) 0.0 PT INR APTT Anion Gap 15 Estim Creat Clear Calc 57.4 Estimated GFR > 60 POC Glucose 93 Random Glucose 107 Calcium 10.2 Troponin I High Sens Urine Color Urine Appearance Urine pH Ur Specific [place] Urine Protein Urine Glucose (UA) Urine Ketones Urine Blood Urine Nitrite Ur Leukocyte Esterase Ethyl Alcohol < 10 10/16/22 10/16/22 10/16/22 16:06 17:46 20:05 MCV MCH MCHC RDW Plt Count MPV Immature Gran % (Auto) Neut % (Auto) Lymph % (Auto) [place] % (Auto) Eos % (Auto) Baso % (Auto) Lymph # (Auto) [place] # (Auto) Eos # (Auto) Baso # (Auto) Abs Immat Gran (auto) Absolute Neuts (auto) Absolute Nucleated RBC Nucleated RBC % (auto) PT 13.0 INR 1.1 APTT Anion Gap Estim Creat Clear Calc Estimated GFR POC Glucose Random Glucose Calcium Troponin I High Sens < 2.7 Urine Color Yellow Urine Appearance Clear Urine pH 6.5 Ur Specific [place] 1.010 Urine Protein Negative Urine Glucose (UA) Negative Urine Ketones Trace Urine Blood Negative Urine Nitrite Negative Ur Leukocyte Esterase Negative Ethyl Alcohol 10/16/22 20:05 MCV MCH MCHC RDW Plt Count MPV Immature Gran % (Auto) Neut % (Auto) Lymph % (Auto) [place] % (Auto) Eos % (Auto) Baso % (Auto) Lymph # (Auto) [place] # (Auto) Eos # (Auto) Baso # (Auto) Abs Immat Gran (auto) Absolute Neuts (auto) Absolute Nucleated RBC Nucleated RBC % (auto) PT INR APTT 31.9 Anion Gap Estim Creat Clear Calc Estimated GFR POC Glucose Random Glucose Calcium Troponin I High Sens Urine Color Urine Appearance Urine pH Ur Specific [place] Urine Protein Urine Glucose (UA) Urine Ketones Urine Blood Urine Nitrite Ur Leukocyte Esterase Ethyl Alcohol Imaging Radiologist's Impressions: Impressions Head CT 10/16/22 19:03 IMPRESSION: 1. No acute intracranial abnormality. 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 #Near-syncope -?neurogenic r/t TIA vs new onset atrial fibrillation though rate is controlled -Head CT negative for acute intracranial abnormality -EKG showed atrial fibrillation, rate 99 -Monitor on telemetry #New onset atrial fibrillation- rate controlled -initially seen EKG 10/07, also on EKG today with rate 99, no ITZEL /depressions -Given 5mg IV lopressor in ED -Initiate metoprolol 12.5mg BID -Echo performed 10/07 without reported thrombus, showed normal LV systolic function, EF 65-70% -[id number] score 8. Continue eliquis 5mg BID- pt/family deny recent GI bleed or hx hemorrghic stroke. Educated on bleeding risk. Follow CBC -Monitor on tele -Cardiology consult #?TIA -Pt with transient episode left-sided facial droop with aphasia noted by daughter and EMS, confusion, greyed out vision, lightheadedness -Head CT negative for acute intracranial abnormality -ABCD2 risk 5 points -MRI brain ordered -Passed nursing bedside swallow eval -ASA given, continue daily -Lipid profile pending, atorvastatin 40mg -Neuro consult -PT/OT eval -Monitor on tele # hek-qyvoiic-ijzfmewsf type 2 diabetes -hemoglobin A1c pending -POC glucose -diabetic diet -Humalog on sliding scale # hypertension -metoprolol 12.5 mg b.i.d. initiated as above # HLD -lipid panel pending, atorvastatin increased to 40 mg daily # multifocal musculoskeletal pain -Tylenol, tizanidine p.r.n. 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 Quality Stroke Does the patient have a stroke diagnosis?: No VTE Prior VTE?: Yes VTE Risk Level:: Medical - moderate - high VTE Device Contraindication: Treatment Not Indicated VTE Drug Contraindication: N/A - Med Ordered
[2022-10-16 21:44] VITALS: BP 123/65; PULSE 95; RESP 17; TEMP 37.1; O2SAT 97
[2022-10-16] MEDS: Metoprolol Tartrate 12.5 MG HALFTAB PO (21:51)
--- NOTE | 2022-10-16 22:59 | PC.NURSE ---
Patient is alert and oriented x3. VSS, playground monitor in place, rate controlled a-fib, hr 85-95. Bediside nursing swallow eval completed, patient passed, no swallowing deficits noted. Patient incontinent of urine, purewick applied. Patient medicated per MAR for achy, cramp like pain in mid, lower back and posterior neck with good effect. Patient reports pain is at tolerable level and she is able to maintain stable sleep pattern. Patient's daughter at bedside. Call muñoz placed within patient's reach.
[2022-10-17] VITALS (7 sets, daily range): BP systolic 110–141; BP diastolic 43–93; PULSE 71–90; RESP 14–27; TEMP 35.9–37.1; O2SAT 92–96
--- NOTE | 2022-10-17 | EEG_ITS ---
This is a 16-channel EEG with an EKG lead. The patient is reported awake during the tracing. Background EEG rhythm at times is 12 to 14 hertz low to medium amplitude with no obvious asymmetry or paroxysmal tendency. Patient transitioned into drowsiness with no significant abnormality. Photic stimulation does not produce any significant abnormality. Hyperventilation was not performed. Cardiac lead does not reveal any significant abnormality. IMPRESSION: This study did not reveal any significant abnormality. If seizure disorder is suspected, ambulatory EEG is recommended for further evaluation. MD VINH Foy/QUINTON / [id number]
[2022-10-17 06:24] LABS: Anion Gap 14 (12-20); Blood Urea Nitrogen 9 mg/dL (9-16); Calcium 9.8 mg/dL (8.4-10.2); Carbon Dioxide 22 mmol/L (22-29); Chloride 109 mmol/L (96-108); Creatinine Clr Calc Pharmacy 64.5; Estimated Glomerular Filt Rate > 60; Glucose Random 90 mg/dL (60-115); Potassium 3.5 mmol/L (3.3-5.1); Sodium 141 mmol/L (135-145)
--- NOTE | 2022-10-17 07:07 | PC.NURSE ---
Alert and orientated. Denies any pain or discomfort. vss, remains in rate controlled afib, daughter at bedside. [place]wick in place draining noe colored urine. BS 96
[2022-10-17] MEDS: Atorvastatin Calcium 40 MG TABLET PO (08:25)
[2022-10-17] MEDS: Metoprolol Tartrate 12.5 MG HALFTAB PO ×2 (08:28→20:04)
--- NOTE | 2022-10-17 08:29 | PC.NURSE ---
Assisted with adl`s,states still has some pain in left side of neck. Ambulating to bathroom with daughter.
--- NOTE | 2022-10-17 09:06 | PHA.MEDREC ---
Pharmacy Consult ? Medication Reconciliation Pharmacy has completed the medication reconciliation. spoke with patient. Confirmed all medications.
--- NOTE | 2022-10-17 10:24 | PM.CNCAR ---
History of Present Illness History of Present Illness Date of Service: 10/17/22 Requesting physician: Rosanna Gaming Consult reason: atrial fibrillation Chief complaint: near syncope, ?TIA, new onset afib Narrative: I was consulted to see Karena in cardiology consultation today for atrial fibrillation. She is a pleasant 76-year-old woman who lives with her daughter was told to come to the emergency room by her daughter because she was having some neurologic symptoms and she noticed that her face especially the angle of the mouth was deviated and there was concern for stroke. Patient has prior history of type 2 diabetes, hypertension, hyperlipidemia no prior cardiac history, prior history of we RAJESH, prior breast cancer and hyperlipidemia. Patient came to the emergency room is said she was feeling for the last 4 days not well. She was having pain in the neck and in her general epigastric area and the left flank area. She says she generally was not feeling well. She then had some transient visual disturbance and followed by her daughter noticing that she was having a phase and left facial droop and was brought to the emergency room. Emergency and she is noted to be in atrial fibrillation although EKG from October 07 showed atrial fibrillation as well. She had echocardiogram at that time and this showed normal LV systolic function. Cardiology consult was sought because of atrial fibrillation and neurologic symptoms. She has been started on Eliquis and given IV Lopressor in the emergency room. She does not recall having prior history of heart failure, coronary artery disease, stroke. Review of Systems Constitutional: Constitutional: Reports lethargy Eyes: Eyes: Reports other (Discolored vision) Cardiovascular: Cardiovascular: Reports no additional cardiovascular complaints Respiratory: Respiratory: Reports no additional respiratory complaints Gastrointestinal: Gastrointestinal: Reports no additional gastrointestinal complaints Genitourinary: Genitourinary: Reports no additional female genitourinary complaints Musculoskeletal: Musculoskeletal: Reports back pain Neurologic: Reports Abnormal speech present, Reports Other visual disturbances and Reports other (Facial asymmetry) Psychiatric: Psychiatric: Reports no additional psychiatric complaints PMFSH Past Medical History Medical History Asthma Depression DMII (diabetes mellitus, type 2) HAYLIE (generalized anxiety disorder) HLD (hyperlipidemia) HTN (hypertension) Invasive ductal carcinoma of breast, stage 3 Family History Family History Father No problems noted. Mother No problems noted. Surgical History Surgical History History of bladder surgery History of breast biopsy History of colonoscopy History of lumpectomy of right breast History of tubal ligation Hx of total mastectomy of right breast Social History Social History Housing: House Alcohol intake: never Patient Tobacco Use Status: Former Tobacco user Quit Date: 12 years ago Smoked in Last 30 Days: No e-Cigarette/Vaping Use: Never Used Second Hand Smoke Exposure: Yes Use of substances other than those prescribed or required for medical reasons: No Advance Directives: No Advance Directives Information Provided: No Nutrition Risks: No Nutritional Risk service: No Current occupational status: disabled Cognitive needs: No Hearing needs: No Vision needs: Yes (glasses) Meds Allergies Allergy/AdvReac Type Severity Reaction Status Date / Time Penicillins [PENICILLINS] Allergy Intermediate RASH Verified 08/17/22 10:21 pravastatin Allergy Unknown Unknown Verified 08/17/22 10:21 Active Medications: Current Medications Acetaminophen (Acetaminophen 325 Mg Tablet) 650 mg PO Q6H PRN PRN Reason: Pain, Mild (Pain Scale 1-3) Aspirin (Aspirin Enteric Coated 81 Mg Tablet.) 81 mg PO DAILY [facility] Last Admin: 10/17/22 08:25 Dose: 81 mg Atorvastatin Calcium (Atorvastatin Calcium 40 Mg Tablet) 40 mg PO DAILY [facility] Last Admin: 10/17/22 08:25 Dose: 40 mg Docusate Sodium (Docusate Sodium 100 Mg Capsule) 100 mg PO DAILY PRN PRN Reason: Constipation Metoprolol Tartrate (Metoprolol Tartrate 12.5 Mg Halftab) 12.5 mg PO BID [facility]; Protocol Last Admin: 10/17/22 08:28 Dose: 12.5 mg Ondansetron HCl (Ondansetron Hcl 4 Mg/2 Ml Vial) 4 mg IVPUSH Q8H PRN PRN Reason: Nausea and Vomiting Sodium Chloride (0.9 % Sodium Chloride Flush 3 Ml Syringe) 3 ml IVFLUSH QSHIFT [facility] Last Admin: 10/17/22 08:27 Dose: 3 ml Tizanidine HCl (Tizanidine Hcl 4 Mg Tablet) 4 mg PO TID PRN PRN Reason: Muscle Spasm Home Medications Medication Instructions Recorded Confirmed Last Taken Type letrozole 2.5 mg tablet 2.5 mg PO DAILY 12/10/20 10/17/22 Unknown History multivitamin 1 tab PO DAILY 10/17/22 10/17/22 Unknown History Physical Exam Vital Signs: Vital Signs: Last Vital Signs Temp 98.3 F 10/17/22 05:53 Pulse 83 10/17/22 07:05 Resp 18 10/17/22 07:05 BP 124/59 L 10/17/22 07:05 Pulse Ox 92 10/17/22 07:05 O2 Del Method Room Air 10/17/22 07:05 BMI result Body Mass Index 37.6 Const: General: cooperative, comfortable, no acute distress, alert and awake Nutritional Appearance: obese Orientation/consciousness: patient oriented x3 Limitations: no limitations HEENT: Head: Yes normocephalic and Yes atraumatic Neck: Neck: Yes trachea midline, Yes supple and Yes no JVD Resp: Effort & Inspection: normal respiratory effort Auscultation: clear to auscultation bilaterally Cardio: Jugular venous distension: no JVD Palpation: normal PMI Rhythm: abnormal rhythm irregularly irregular Heart sounds: S1 normal heart sound present, S2 normal heart sound present, no click, no gallops, no murmurs and no rubs GI: Auscultation: normal bowel sounds Skin: General skin exam: no rashes or lesions noted Neuro: General: patient oriented x3 and no focal motor deficits Speech: Abnormal speech present Extrem: General: Yes no clubbing, cyanosis or edema Objective Labs and Meds 10/17/22 05:49 10/17/22 05:49 Lab results: Laboratory Results - last 24 hr 10/16/22 10/16/22 10/16/22 16:05 16:06 16:06 WBC 14.0 H RBC 3.98 L Hgb 10.9 L Hct 33.9 L MCV 85.2 MCH 27.4 MCHC 32.2 RDW 14.7 Plt Count 312 MPV 10.0 Immature Gran % (Auto) 0.6 H Neut % (Auto) 77.1 H Lymph % (Auto) 11.1 L [place] % (Auto) 10.0 Eos % (Auto) 0.7 Baso % (Auto) 0.5 Lymph # (Auto) 1.6 [place] # (Auto) 1.4 H Eos # (Auto) 0.1 Baso # (Auto) 0.1 Abs Immat Gran (auto) 0.08 H Absolute Neuts (auto) 10.8 H Absolute Nucleated RBC 0.000 Nucleated RBC % (auto) 0.0 PT INR APTT Sodium 140 Potassium 3.5 D Chloride 106 Carbon Dioxide 23 Anion Gap 15 BUN 13 Creatinine 0.90 Estim Creat Clear Calc 57.4 Estimated GFR > 60 POC Glucose 93 Random Glucose 107 Estimat Average Glucose Hemoglobin A1c % Calcium 10.2 Troponin I High Sens Triglycerides 74 Cholesterol 148 LDL Cholesterol, Calc 73 HDL Cholesterol 61 TSH 1.11 Urine Color Urine Appearance Urine pH Ur Specific [place] Urine Protein Urine Glucose (UA) Urine Ketones Urine Blood Urine Nitrite Ur Leukocyte Esterase Ethyl Alcohol < 10 10/16/22 10/16/22 10/16/22 16:06 16:06 17:46 WBC RBC Hgb Hct MCV MCH MCHC RDW Plt Count MPV Immature Gran % (Auto) Neut % (Auto) Lymph % (Auto) [place] % (Auto) Eos % (Auto) Baso % (Auto) Lymph # (Auto) [place] # (Auto) Eos # (Auto) Baso # (Auto) Abs Immat Gran (auto) Absolute Neuts (auto) Absolute Nucleated RBC Nucleated RBC % (auto) PT INR APTT Sodium Potassium Chloride Carbon Dioxide Anion Gap BUN Creatinine Estim Creat Clear Calc Estimated GFR POC Glucose Random Glucose Estimat Average Glucose 100 Hemoglobin A1c % 5.1 Calcium Troponin I High Sens < 2.7 Triglycerides Cholesterol LDL Cholesterol, Calc HDL Cholesterol TSH Urine Color Yellow Urine Appearance Clear Urine pH 6.5 Ur Specific [place] 1.010 Urine Protein Negative Urine Glucose (UA) Negative Urine Ketones Trace Urine Blood Negative Urine Nitrite Negative Ur Leukocyte Esterase Negative Ethyl Alcohol 10/16/22 10/16/22 10/17/22 20:05 20:05 05:49 WBC 9.5 RBC 3.84 L Hgb 10.7 L Hct 32.5 L MCV 84.6 MCH 27.9 MCHC 32.9 RDW 14.6 Plt Count 322 MPV 10.5 Immature Gran % (Auto) 0.3 Neut % (Auto) 63.4 Lymph % (Auto) 23.1 [place] % (Auto) 11.1 H Eos % (Auto) 1.4 Baso % (Auto) 0.7 Lymph # (Auto) 2.2 [place] # (Auto) 1.1 Eos # (Auto) 0.1 Baso # (Auto) 0.1 Abs Immat Gran (auto) 0.03 Absolute Neuts (auto) 6.0 Absolute Nucleated RBC 0.000 Nucleated RBC % (auto) 0.0 PT 13.0 INR 1.1 APTT 31.9 Sodium Potassium Chloride Carbon Dioxide Anion Gap BUN Creatinine Estim Creat Clear Calc Estimated GFR POC Glucose Random Glucose Estimat Average Glucose Hemoglobin A1c % Calcium Troponin I High Sens Triglycerides Cholesterol LDL Cholesterol, Calc HDL Cholesterol TSH Urine Color Urine Appearance Urine pH Ur Specific [place] Urine Protein Urine Glucose (UA) Urine Ketones Urine Blood Urine Nitrite Ur Leukocyte Esterase Ethyl Alcohol 10/17/22 10/17/22 05:49 07:08 WBC RBC Hgb Hct MCV MCH MCHC RDW Plt Count MPV Immature Gran % (Auto) Neut % (Auto) Lymph % (Auto) [place] % (Auto) Eos % (Auto) Baso % (Auto) Lymph # (Auto) [place] # (Auto) Eos # (Auto) Baso # (Auto) Abs Immat Gran (auto) Absolute Neuts (auto) Absolute Nucleated RBC Nucleated RBC % (auto) PT INR APTT Sodium 141 Potassium 3.5 Chloride 109 H Carbon Dioxide 22 Anion Gap 14 BUN 9 Creatinine 0.80 Estim Creat Clear Calc 64.5 Estimated GFR > 60 POC Glucose 96 Random Glucose 90 Estimat Average Glucose Hemoglobin A1c % Calcium 9.8 Troponin I High Sens Triglycerides Cholesterol LDL Cholesterol, Calc HDL Cholesterol TSH Urine Color Urine Appearance Urine pH Ur Specific [place] Urine Protein Urine Glucose (UA) Urine Ketones Urine Blood Urine Nitrite Ur Leukocyte Esterase Ethyl Alcohol Imaging Radiologist's impression: Impressions Head CT 10/16/22 19:03 IMPRESSION: 1. No acute intracranial abnormality. Assessment and Plan (1) Atrial flutter: Status: Acute Patient with new onset atrial flutter with variable conduction with multiple risk factors including hypertension diabetes as well as age and now neurologic symptoms. High risk for thromboembolic complication. Agree with Eliquis 5 mg b.i.d.. There is no indication for concomitant aspirin therapy as there is no clear evidence of any recent arterial procedures arterial events otherwise. Consider neurology consultation. Can pursue rate control with metoprolol and can maximize metoprolol therapy as tolerated. Need for oral anticoagulation was discussed with the patient. She had a recent echocardiogram and therefore does not require any repeat echocardiographic procedure at this point time. Will follow-up as outpatient after Holter monitor to assess for adequate rate control. Will discuss in 4 weeks time in the office for rhythm control versus rate control approach is remains in persistent atrial flutter/fibrillation. Will follow up as outpatient. Thank you for allowing me to partake in her care Time Spent With Patient Time: Total time managing care of this patient today ____ minutes. Procedures Date of Service Date of Service: 10/17/22
--- NOTE | 2022-10-17 11:03 | PM.NEUROCN ---
History of Present Illness Data of Consult Service Date: 10/17/22 Primary Care Provider: Efraín Salcedo PA-C HPI Reason for consult: Seizure 77 years old woman with past medical history of atrial fibrillation came to hospital with new onset of an episode making her dizzy and confused. Her daughter stated that she was not making sense, her eyes rolled over and then deviated to left side and she was shaking some. She had no recollection of the whole event. Review of Systems Review of Systems: No cold or flu-like illness PMFSH Past Medical History Medical History Asthma Depression DMII (diabetes mellitus, type 2) HAYLIE (generalized anxiety disorder) HLD (hyperlipidemia) HTN (hypertension) Invasive ductal carcinoma of breast, stage 3 Family History Family History Father No problems noted. Mother No problems noted. Surgical History Surgical History History of bladder surgery History of breast biopsy History of colonoscopy History of lumpectomy of right breast History of tubal ligation Hx of total mastectomy of right breast Social History Social History Housing: House Alcohol intake: never Patient Tobacco Use Status: Former Tobacco user Quit Date: 12 years ago Smoked in Last 30 Days: No e-Cigarette/Vaping Use: Never Used Second Hand Smoke Exposure: Yes Use of substances other than those prescribed or required for medical reasons: No Advance Directives: No Advance Directives Information Provided: No Nutrition Risks: No Nutritional Risk service: No Current occupational status: disabled Cognitive needs: No Hearing needs: No Vision needs: Yes (glasses) Meds Allergies Allergy/AdvReac Type Severity Reaction Status Date / Time Penicillins [PENICILLINS] Allergy Intermediate RASH Verified 08/17/22 10:21 pravastatin Allergy Unknown Unknown Verified 08/17/22 10:21 Active Medications: Current Medications Acetaminophen (Acetaminophen 325 Mg Tablet) 650 mg PO Q6H PRN PRN Reason: Pain, Mild (Pain Scale 1-3) Aspirin (Aspirin Enteric Coated 81 Mg Tablet.) 81 mg PO DAILY [facility] Last Admin: 10/17/22 08:25 Dose: 81 mg Atorvastatin Calcium (Atorvastatin Calcium 40 Mg Tablet) 40 mg PO DAILY [facility] Last Admin: 10/17/22 08:25 Dose: 40 mg Docusate Sodium (Docusate Sodium 100 Mg Capsule) 100 mg PO DAILY PRN PRN Reason: Constipation Metoprolol Tartrate (Metoprolol Tartrate 12.5 Mg Halftab) 12.5 mg PO BID [facility]; Protocol Last Admin: 10/17/22 08:28 Dose: 12.5 mg Ondansetron HCl (Ondansetron Hcl 4 Mg/2 Ml Vial) 4 mg IVPUSH Q8H PRN PRN Reason: Nausea and Vomiting Sodium Chloride (0.9 % Sodium Chloride Flush 3 Ml Syringe) 3 ml IVFLUSH QSHIFT [facility] Last Admin: 10/17/22 08:27 Dose: 3 ml Tizanidine HCl (Tizanidine Hcl 4 Mg Tablet) 4 mg PO TID PRN PRN Reason: Muscle Spasm Home Medications Medication Instructions Recorded Confirmed Last Taken Type letrozole 2.5 mg tablet 2.5 mg PO DAILY 12/10/20 10/17/22 Unknown History multivitamin 1 tab PO DAILY 10/17/22 10/17/22 Unknown History Physical Exam Vital Signs: Vital Signs: Last Vital Signs Temp 98.3 F 10/17/22 05:53 Pulse 83 10/17/22 07:05 Resp 18 10/17/22 07:05 BP 124/59 L 10/17/22 07:05 Pulse Ox 92 10/17/22 07:05 O2 Del Method Room Air 10/17/22 07:05 BMI result Body Mass Index 37.6 Neuro: Other: She is alert and awake with normal spontaneity of speech fluency comprehension and affect. Face is symmetrical. Visual pressley are full. Elementary neurological examination did not reveal any significant abnormality. Results Labs 10/17/22 05:49 10/17/22 05:49 Labs: Short CBC 10/16/22 10/17/22 Range/Units 16:06 05:49 WBC 14.0 H 9.5 (4.8-10.8) X10*3/uL Hgb 10.9 L 10.7 L (12.0-16.0) g/dl Hct 33.9 L 32.5 L (37.0-47.0) % Plt Count 312 322 (160-400) X10*3/uL BMP 10/16/22 10/17/22 16:06 05:49 Sodium 140 141 Potassium 3.5 D 3.5 Chloride 106 109 H Carbon Dioxide 23 22 BUN 13 9 Creatinine 0.90 0.80 Calcium 10.2 9.8 Urine 10/16/22 Range/Units 17:46 Urine Color Yellow Urine Appearance Clear Urine pH 6.5 (5.0-9.0) Ur Specific [place] 1.010 (1.005-1.025) Urine Protein Negative (Neg-Trace) mg/dL Urine Glucose (UA) Negative (Negative) mg/dL head CT revealed moderate cerebral atrophy and [id number] chronic microvascular ischemic changes. Assessment and Plan (1) Seizure: Status: Acute 77 years old woman who probably had a complex partial seizure. Recommendation is to obtain an EEG and an MRI with and without contrast. As far as atrial fibrillation is concerned, appropriate management is recommended including anticoagulation. Time Spent With Patient Time: Total time managing care of this patient today ____ minutes. Procedures Date of Service Date of Service: 10/17/22
--- NOTE | 2022-10-17 12:01 | HO.PM.IMPN ---
Subjective Subjective Date of Service: 10/17/22 Interval History: per daughter pt's eyes rolled back and deviated to L and had some generalized shaking no prior sz history had some facial droop afterwards, which resolved now feels at baseline Physical Exam Vital Signs: Vital Signs: Last Vital Signs Temp 98.3 F 10/17/22 05:53 Pulse 83 10/17/22 07:05 Resp 18 10/17/22 07:05 BP 124/59 L 10/17/22 07:05 Pulse Ox 92 10/17/22 07:05 O2 Del Method Room Air 10/17/22 07:05 BMI result Body Mass Index 37.6 Gen: in no acute distress HEENT: sclera anicteric, moist mucus membranes Neck: supple Lungs: clear to auscultation bilaterally Heart: regular rate and rhythm, no murmurs Abd: soft, non-tender, non-distended Ext: no edema Skin: warm/well-perfused Neuro: alert and oriented x3, EOMI, no facial droop, no pronator drift, no leg or arm weakness Psych: appropriate affect Objective Data Active Medications Acetaminophen (Acetaminophen 325 Mg Tablet) 650 mg PO Q6H PRN PRN Reason: Pain, Mild (Pain Scale 1-3) Albuterol Sulfate (Albuterol Sulfate 90 Mcg 8 Gm Inhaler) 2 puff INHALE Q6H PRN PRN Reason: shortness of breath or wheezing Apixaban (Apixaban 2.5 Mg Tablet) 2.5 mg PO BID [facility] Atorvastatin Calcium (Atorvastatin Calcium 40 Mg Tablet) 40 mg PO DAILY [facility] Last Admin: 10/17/22 08:25 Dose: 40 mg Documented By: ES Calcium Carbonate (Calcium Carbonate 500 Mg Tablet) 500 mg PO BID [facility] Docusate Sodium (Docusate Sodium 100 Mg Capsule) 100 mg PO DAILY PRN PRN Reason: Constipation Fluoxetine HCl (Fluoxetine Hcl 20 Mg Capsule) 20 mg PO DAILY [facility] Fluticasone Propionate (Fluticasone Propionate Nasal 16 Gm [place]) 1 spray NOSTRIL-B DAILY [facility] Letrozole (Letrozole 2.5 Mg Tablet) 2.5 mg PO DAILY [facility] Loratadine (Loratadine 10 Mg Tablet) 10 mg PO DAILY [facility] Losartan Potassium (Losartan Potassium 50 Mg Tablet) 100 mg PO DAILY [facility]; Protocol Metoprolol Tartrate (Metoprolol Tartrate 12.5 Mg Halftab) 12.5 mg PO BID [facility]; Protocol Last Admin: 10/17/22 08:28 Dose: 12.5 mg Documented By: ES Multivitamins/Vitamin C (Multivitamin Tablet) 1 tab PO DAILY [facility] Omeprazole (Omeprazole 20 Mg Capsule.Dr) 20 mg PO DAILY@0600 [facility] Ondansetron HCl (Ondansetron Hcl 4 Mg/2 Ml Vial) 4 mg IVPUSH Q8H PRN PRN Reason: Nausea and Vomiting Oxybutynin Chloride (Oxybutynin Chloride Er 5 Mg Tab.Er.24) 10 mg PO DAILY [facility] Sodium Chloride (0.9 % Sodium Chloride Flush 3 Ml Syringe) 3 ml IVFLUSH QSHIFT [facility] Last Admin: 10/17/22 08:27 Dose: 3 ml Documented By: ES Tizanidine HCl (Tizanidine Hcl 4 Mg Tablet) 4 mg PO TID PRN PRN Reason: Muscle Spasm Labs 10/17/22 05:49 10/17/22 05:49 Labs: Laboratory Results - last 24 hr 10/16/22 10/16/22 10/16/22 16:05 16:06 16:06 MCV 85.2 MCH 27.4 MCHC 32.2 RDW 14.7 Plt Count 312 MPV 10.0 Immature Gran % (Auto) 0.6 H Neut % (Auto) 77.1 H Lymph % (Auto) 11.1 L [place] % (Auto) 10.0 Eos % (Auto) 0.7 Baso % (Auto) 0.5 Lymph # (Auto) 1.6 [place] # (Auto) 1.4 H Eos # (Auto) 0.1 Baso # (Auto) 0.1 Abs Immat Gran (auto) 0.08 H Absolute Neuts (auto) 10.8 H Absolute Nucleated RBC 0.000 Nucleated RBC % (auto) 0.0 PT INR APTT Anion Gap 15 Estim Creat Clear Calc 57.4 Estimated GFR > 60 POC Glucose 93 Random Glucose 107 Estimat Average Glucose Hemoglobin A1c % Calcium 10.2 Troponin I High Sens Triglycerides 74 Cholesterol 148 LDL Cholesterol, Calc 73 HDL Cholesterol 61 TSH 1.11 Urine Color Urine Appearance Urine pH Ur Specific [place] Urine Protein Urine Glucose (UA) Urine Ketones Urine Blood Urine Nitrite Ur Leukocyte Esterase Ethyl Alcohol < 10 10/16/22 10/16/22 10/16/22 16:06 16:06 17:46 MCV MCH MCHC RDW Plt Count MPV Immature Gran % (Auto) Neut % (Auto) Lymph % (Auto) Ro[place] % (Auto) Eos % (Auto) Baso % (Auto) Lymph # (Auto) [place] # (Auto) Eos # (Auto) Baso # (Auto) Abs Immat Gran (auto) Absolute Neuts (auto) Absolute Nucleated RBC Nucleated RBC % (auto) PT INR APTT Anion Gap Estim Creat Clear Calc Estimated GFR POC Glucose Random Glucose Estimat Average Glucose 100 Hemoglobin A1c % 5.1 Calcium Troponin I High Sens < 2.7 Triglycerides Cholesterol LDL Cholesterol, Calc HDL Cholesterol TSH Urine Color Yellow Urine Appearance Clear Urine pH 6.5 Ur Specific [place] 1.010 Urine Protein Negative Urine Glucose (UA) Negative Urine Ketones Trace Urine Blood Negative Urine Nitrite Negative Ur Leukocyte Esterase Negative Ethyl Alcohol 10/16/22 10/16/22 10/17/22 20:05 20:05 05:49 MCV 84.6 MCH 27.9 MCHC 32.9 RDW 14.6 Plt Count 322 MPV 10.5 Immature Gran % (Auto) 0.3 Neut % (Auto) 63.4 Lymph % (Auto) 23.1 [place] % (Auto) 11.1 H Eos % (Auto) 1.4 Baso % (Auto) 0.7 Lymph # (Auto) 2.2 Ro[place] # (Auto) 1.1 Eos # (Auto) 0.1 Baso # (Auto) 0.1 Abs Immat Gran (auto) 0.03 Absolute Neuts (auto) 6.0 Absolute Nucleated RBC 0.000 Nucleated RBC % (auto) 0.0 PT 13.0 INR 1.1 APTT 31.9 Anion Gap Estim Creat Clear Calc Estimated GFR POC Glucose Random Glucose Estimat Average Glucose Hemoglobin A1c % Calcium Troponin I High Sens Triglycerides Cholesterol LDL Cholesterol, Calc HDL Cholesterol TSH Urine Color Urine Appearance Urine pH Ur Specific [place] Urine Protein Urine Glucose (UA) Urine Ketones Urine Blood Urine Nitrite Ur Leukocyte Esterase Ethyl Alcohol 10/17/22 10/17/22 05:49 07:08 MCV MCH MCHC RDW Plt Count MPV Immature Gran % (Auto) Neut % (Auto) Lymph % (Auto) Ro[place] % (Auto) Eos % (Auto) Baso % (Auto) Lymph # (Auto) Ro[place] # (Auto) Eos # (Auto) Baso # (Auto) Abs Immat Gran (auto) Absolute Neuts (auto) Absolute Nucleated RBC Nucleated RBC % (auto) PT INR APTT Anion Gap 14 Estim Creat Clear Calc 64.5 Estimated GFR > 60 POC Glucose 96 Random Glucose 90 Estimat Average Glucose Hemoglobin A1c % Calcium 9.8 Troponin I High Sens Triglycerides Cholesterol LDL Cholesterol, Calc HDL Cholesterol TSH Urine Color Urine Appearance Urine pH Ur Specific [place] Urine Protein Urine Glucose (UA) Urine Ketones Urine Blood Urine Nitrite Ur Leukocyte Esterase Ethyl Alcohol Assessment and Plan (1) Seizure: Status: Acute (2) Atrial flutter: Status: Acute (3) Near syncope: Status: Acute Plan d#2 77yo F with DM2, DCIS R breast s/p mastectomy on letrozole, osteopenia, mood disorder, HTN, HLD, mild int asthma, urge incontinence, GERD, 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 syncope, question of TIA in persistent AF # AF,recent-onset - TTE done 10/07, normal LVEF, continue metoprolol tartrate for rate control, start apixban for AC, d/c aspirin, f/u with Cardiology in 4 weeks with Holter monitor and to discuss rate vs rhythm control # seizure vs syncope - Neuro consulted, MRI +/- contrast, EEG # TIA vs. 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 Quality Stroke Does the patient have a stroke diagnosis?: No VTE Prior VTE?: Yes VTE Risk Level:: Medical - moderate - high VTE Device Contraindication: Treatment Not Indicated VTE Drug Contraindication: N/A - Med Ordered
--- NOTE | 2022-10-17 13:06 | PC.NURSE ---
Report called to accepting unit, transport to bring patient upstairs. Called MRI- will come get patient upstairs
[2022-10-17] MEDS: Apixaban 5 MG TABLET PO ×2 (13:16→20:04)
[2022-10-17] MEDS: FLUoxetine HCl 20 MG CAPSULE PO (13:16)
[2022-10-17] MEDS: Loratadine 10 MG TABLET PO (13:17)
[2022-10-17] MEDS: Multivitamin TABLET 1 TAB PO (13:17)
[2022-10-17] MEDS: oxyBUTYnin chloride ER 5 MG TAB.ER.24 10 MG PO (13:17)
[2022-10-17] MEDS: Letrozole 2.5 MG TABLET PO (13:17)
[2022-10-17] MEDS: Losartan Potassium 50 MG TABLET 100 MG PO (13:17)
[2022-10-17] MEDS: Omeprazole 20 MG CAPSULE.DR PO (13:20)
[2022-10-17] MEDS: TiZANidine HCL 4 MG TABLET PO (20:04)
[2022-10-18 02:56] LABS: Glucose, Whole Blood 105 mg/dL (60-115)
[2022-10-18 03:17] VITALS: BP 131/77; PULSE 78; RESP 20; TEMP 36.8; O2SAT 97
[2022-10-18] MEDS: Omeprazole 20 MG CAPSULE.DR PO (04:03)
[2022-10-18 07:45] VITALS: BP 128/63; PULSE 80; RESP 20; TEMP 36.1; O2SAT 96
[2022-10-18] MEDS: Losartan Potassium 50 MG TABLET 100 MG PO (10:34)
[2022-10-18] MEDS: FLUoxetine HCl 20 MG CAPSULE PO (10:34)
[2022-10-18] MEDS: Multivitamin TABLET 1 TAB PO (10:34)
[2022-10-18] MEDS: oxyBUTYnin chloride ER 5 MG TAB.ER.24 10 MG PO (10:35)
[2022-10-18] MEDS: Atorvastatin Calcium 40 MG TABLET PO (10:35)
[2022-10-18] MEDS: Loratadine 10 MG TABLET PO (10:35)
[2022-10-18] MEDS: Apixaban 5 MG TABLET PO (10:35)
[2022-10-18] MEDS: Metoprolol Tartrate 12.5 MG HALFTAB PO (10:35)
[2022-10-18] MEDS: LORazepam 0.5 MG TABLET PO (10:35)
[2022-10-18] MEDS: Letrozole 2.5 MG TABLET PO (10:36)
--- NOTE | 2022-10-18 11:52 | W.MHC.F2F ---
Service Date Service Date: 10/18/22 Encounter Date of encounter: 10/18/22 Reasons for Services Signs and symptoms assessed: Gross Deconditioning, Impaired Bed Mobility, Impaired Gait Pattern, Impaired Joint ROM,Impaired Safety,Impaired Standing Balance, Impaired Transfer Ability, Impaired Trunk Control,Muscle Weakness,Pain Reason for physical therapy: home safety and mobility, therapeutic exercises, gait/transfer training, assess need for DME, ADL training and energy conservation MD Overseeing Care: Efraín Salcedo Homebound: Leaving the home is medically contraindicated at this time without the asist of a device and/or another person due th the listed conditions above and below. Reason homebound: unsteady gait / fall risk and weakness related to hospital stay Homebound supporting statement: Bed Mobility, Transfer Training,Gait Training,Stair Training, Therapeutic Activities, Therapeutic Exercise,Neuro Re-education, Patient Education, Safety,Balance Certification: Based on the above findings, I certify that this patient is confined to the home and needs intermittent residential care, physical therapy and/or speech therapy, or continues to need occupational therapy. The patient is under my care, and I have initiated the establishment of the plan of care. The patient will be followed by a physician who will periodically review the plan of care. Time Spent With Patient Time: Total time managing care of this patient today ____ minutes.
--- NOTE | 2022-10-18 11:58 | MHC.CM.PN ---
IMM 10/18/22, PER EMMANUEL PT W/LIKELY COMPLEX PARTIAL SEIZURE, CM MET W/PT VIA [employer] HOWEVER PT DOES SPEAK AND UNDERSTAND [place], PT REPORTS SHE LIVES W/HER DTR, CONT'S TO WORK, PT REPORTS SHE IS INDEP, DENIES DME/SERVICES, PT IS RECOMMENDING HOME PT AND FAMILY WOULD LIKE INTERMEDIATE AND HOME OT HOWEVER HOME OT WAS NOT RECOMMENDED WHEN PT EVALUATED FOR HOME SERVICES. PT CONFIRMS CANDELARIO DOLAN PCP, COVID VACC X4 AND PT HAS COMPLETED A NEW HCP NAMING HER DTR MARYAN JOHNSON HER [facility] AND SON BEAU JOHNSON [phone] HER ALTERNATE, PT RECEIVED EDUCATIONAL INFO IN [place], ORIGINAL AND 2 COPIES, COPY UPLOADED CAREPORT AND PLACED IN CHART. ANTIC D/C HOME W/[facility] FOR SN/HOME PT W/FAMILY FOR TRANSPORT DTR JOSE AT BEDSIDE ASKING FOR BEDSIDE COMMODE AND REPORTING SHE WAS TRYING TO GET HER MOTHER TO QUIT WORKING AND GO INTO ADULT F[facility] CARE, CM DIRECTED DTR TO PCP FOR ADVICE HOWEVER PT NOT LIKELY TO QUALIFY SHE STILL WORKS. CM ALSO RECEIVED MESSAGE FROM [facility] LIAISON SHE MET W/THEM REGARDING SERVICES HOWEVER D/T PT WORKING LIAISON REPORTS SHE WOULD NOT QUALIFY FOR SERVICES.
--- NOTE | 2022-10-18 11:59 | P.DS_ITS ---
DS: Providers Provider Date of Service: 10/18/22 Date of admission: 10/17/22 11:38 Date of discharge: 10/18/22 Primary care physician: Efraín Salcedo PA-C Consults: 10/16/22 20:34 Consult to Cardiology Routine Consulting Provider: [facility] Cardiovascular Services Reason for consultation: new onset afib Has provider been notified: Yes Consult to Neurology Routine Consulting Provider: [facility] Reason for consultation: ?TIA, near syncope DS: Diagnosis Discharge Diagnosis (1) Atrial flutter: Status: Acute (2) Near syncope: Status: Acute (3) Hemiparesis of left side of face: Status: Acute (4) Embolic stroke: Status: Acute DS: Summary Hospital Course Hospital Course: from admission H+P by hospitalist MARIA G Cueto, 10/16/22: 77-year-old female with aio-[id number]-[id number] type 2 diabetes, ductal carcinoma in-situ of the right breast s/p right mastectomy currently on letrozole, osteopenia, depression/anxiety, hypertension, hyperlipidemia, mild intermittent asthma, urge incontinence, GERD, history of VTE no longer on anticoagulation, and recently noted atrial fibrillation on EKG 10/07 the patient was unaware of this who is a former smoker presented to the ED via EMS from her home where she resides with her daughter following an episode of near-syncope.? This patient states that she was about to eat soup when she developed sudden onset lightheadedness and carrillo vision bilaterally.? Her daughter and EMS also noted left-sided facial droop and aphasia.? The patient endorsed confusion and per EMS was not following commands. Symptoms fully resolved by arrival to hospital. She is also complaining of constant neck, upper back, bilateral arm, and anterior chest pain ongoing since she received a massage at a nail salon 4 days ago. No extremity weakness or paresthesias.? On arrival, vital stable.? Blood pressure initially soft at 108/45, 150/78 on admission.? 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 There is a leukocytosis of 14.0.? Stable normocytic anemia with H/H 10.9/33.9%.? Renal function baseline, electrolyte levels normal.? Troponin below detectable limits.? Urinalysis unremarkable.? Head CT negative for any acute intracranial abnormality.? EKG showed atrial fibrillation, rate 99 with incomplete right bundle branch block but no ITZEL or depressions. She did have echocardiogram ordered by PCP due to systolic murmur performed on 10/07 which showed normal LV systolic function with EF 65-70%, no regional wall motion abnormalities. At that time, EKG ordered in cardiology showed new onset atrial fibrillation.? There was aortic sclerosis without obvious stenosis.? No other significant valvular abnormality.? In the ED, started on eliquis 5mg and given 5mg IV lopressor. 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 She remained in atrial fibrillation. CardiolgMRI confirmed an small acute left parietal CVA. Sh - # AF,recent-onset - TTE done 10/07, normal LVEF, continue metoprolol tartrate for rate control, start apixban for AC, d/c aspirin, f/u with Cardiology in 4 weeks with Holter monitor and to discuss rate vs rhythm control # seizure vs syncope - Neuro consulted, MRI +/- contrast, EEG # TIA vs. Antwan's paralysis [ABCD2 risk score 5] - MRI, secondary prevention with apixaban as above, PT/OT, carotid dopplers, statin Time Spent with Patient Time attestation: Total time managing care of this patient today ___40_ minutes. Discharge coordination time: Greater than 30 minutes Quality: Safe Use of Opioids Does Pt have an Active Cancer Diagnosis on the Problem List?: No Quality: Stroke Does the patient have a stroke diagnosis?: Yes Reason for No Anti-thrombotic at DC: Drug treatment not indicated Reason for No Anticoagulant at DC: N/A - Med Ordered Reason Not Initiating IV-Tpa: Drug treatment not indicated Reason for No Anti-thrombotic by Day Two: Drug treatment not indicated Reason for No Statin at DC: N/A - Med Ordered Physical Exam Vital Signs: Vital Signs: Last Vital Signs Temp 97.0 F 10/18/22 07:45 Pulse 80 10/18/22 07:45 Resp 20 10/18/22 07:45 BP 128/63 10/18/22 07:45 Pulse Ox 96 10/18/22 07:45 O2 Del Method Room Air 10/18/22 07:45 BMI result Body Mass Index 37.6 Gen: in no acute distress HEENT: sclera anicteric, moist mucus membranes Neck: supple Lungs: clear to auscultation bilaterally Heart: regular rate and rhythm, no murmurs Abd: soft, non-tender, non-distended Ext: no edema Skin: warm/well-perfused Neuro: alert and oriented x3, EOMI, no facial droop, no pronator drift, no leg or arm weakness Psych: appropriate affect DS: Data Data Completed and Pending Completed studies during hospitalization [Text1]: Laboratory Results WBC 9.5 X10*3/uL (4.8-10.8) 10/17/22 05:49 RBC 3.84 X10*6/uL (4.20-5.50) L 10/17/22 05:49 Hgb 10.7 g/dl (12.0-16.0) L 10/17/22 05:49 Hct 32.5 % (37.0-47.0) L 10/17/22 05:49 MCV 84.6 fL (80.0-98.0) 10/17/22 05:49 MCH 27.9 pg (27.0-33.0) 10/17/22 05:49 MCHC 32.9 g/dl (31.0-35.0) 10/17/22 05:49 RDW 14.6 % (11.0-16.0) 10/17/22 05:49 Plt Count 322 X10*3/uL (160-400) 10/17/22 05:49 MPV 10.5 fL (9.4-12.3) 10/17/22 05:49 Immature Gran % (Auto) 0.3 % (0.0-0.4) 10/17/22 05:49 Neut % (Auto) 63.4 % (45-73) 10/17/22 05:49 Lymph % (Auto) 23.1 % (20-40) 10/17/22 05:49 [place] % (Auto) 11.1 % (2-11) H 10/17/22 05:49 Eos % (Auto) 1.4 % (0-4) 10/17/22 05:49 Baso % (Auto) 0.7 % (0-2) 10/17/22 05:49 Lymph # (Auto) 2.2 X10*3/uL (1.2-4.9) 10/17/22 05:49 [place] # (Auto) 1.1 X10*3/uL (0.1-1.2) 10/17/22 05:49 Eos # (Auto) 0.1 X10*3/uL (0.0-0.4) 10/17/22 05:49 Baso # (Auto) 0.1 X10*3/uL (0.0-0.2) 10/17/22 05:49 Abs Immat Gran (auto) 0.03 X10*3/uL (0.00-0.03) 10/17/22 05:49 Absolute Neuts (auto) 6.0 x10*3/uL (2.0-8.3) 10/17/22 05:49 Absolute Nucleated RBC 0.000 X10*3/uL (0.0-0.012) 10/17/22 05:49 Nucleated RBC % (auto) 0.0 /100WBC (0.0-0.2) 10/17/22 05:49 PT 13.0 SEC (10.0-13.1) 10/16/22 20:05 INR 1.1 (0.9-1.1) 10/16/22 20:05 APTT 31.9 SEC (26.0-36.4) 10/16/22 20:05 Sodium 141 mmol/L (135-145) 10/17/22 05:49 Potassium 3.5 mmol/L (3.3-5.1) 10/17/22 05:49 Chloride 109 mmol/L (96-108) H 10/17/22 05:49 Carbon Dioxide 22 mmol/L (22-29) 10/17/22 05:49 Anion Gap 14 (12-20) 10/17/22 05:49 BUN 9 mg/dL (9-16) 10/17/22 05:49 Creatinine 0.80 mg/dL (0.5-1.4) 10/17/22 05:49 Estim Creat Clear Calc 64.5 07/10/23 05:49 Estimated GFR > 60 10/17/22 05:49 POC Glucose 105 mg/dL (60-115) 10/17/22 12:55 Random Glucose 90 mg/dL (60-115) 10/17/22 05:49 Estimat Average Glucose 100 mg/dL 10/16/22 16:06 Hemoglobin A1c % 5.1 % 10/16/22 16:06 Calcium 9.8 mg/dL (8.4-10.2) 10/17/22 05:49 Troponin I High Sens < 2.7 ng/L (<3.5-17.0) 10/16/22 16:06 Triglycerides 74 mg/dL 10/16/22 16:06 Cholesterol 148 mg/dL 10/16/22 16:06 LDL Cholesterol, Calc 73 mg/dl 10/16/22 16:06 HDL Cholesterol 61 mg/dL 10/16/22 16:06 TSH 1.11 uIU/mL (0.32-4.0) 10/16/22 16:06 Urine Color Yellow 10/16/22 17:46 Urine Appearance Clear 10/16/22 17:46 Urine pH 6.5 (5.0-9.0) 10/16/22 17:46 Ur Specific [place] 1.010 (1.005-1.025) 10/16/22 17:46 Urine Protein Negative mg/dL (Neg-Trace) 10/16/22 17:46 Urine Glucose (UA) Negative mg/dL (Negative) 10/16/22 17:46 Urine Ketones Trace mg/dL (Negative) 10/16/22 17:46 Urine Blood Negative (Negative) 10/16/22 17:46 Urine Nitrite Negative (Negative) 10/16/22 17:46 Ur Leukocyte Esterase Negative (Negative) 10/16/22 17:46 Ethyl Alcohol < 10 mg/dL 10/16/22 16:[address] 10/16/22 19:03 IMPRESSION: 1. No acute intracranial abnormality. Carotid Doppler Study 10/17/22 11:28 IMPRESSION: 1. RIGHT: Minimal, non-hemodynamically significant stenosis of the proximal right internal carotid artery corresponding to a 0-49% stenosis by velocity criteria. 2. LEFT: Minimal, non-hemodynamically significant stenosis of the proximal left internal carotid artery corresponding to a 0-49% stenosis by velocity criteria. 3. There is no change in the category severity of disease when compared to the previous. Brain MRI 10/18/22 11:45 IMPRESSION: There is a tiny acute white matter infarct involving the left parietal lobe. This finding is superimposed upon numerous chronic small vessel ischemic changes within the periventricular white matter. No abnormal intracranial mass or enhancement. Discharge Plan Discharge Anticipated Discharge Date/Time: 10/18/22 16:55 Patient Disposition: Home Health Service Discharge Diagnosis: atrial fibrillation, recent-onset acute stroke Referrals: Bambi MATSON [Outside] - 1 Day (HOME PHYSICAL THERAPY) Efraín Salcedo PA-C [Primary Care Provider] - 1 Week Stef Maxwell MD [Physician] - 4 Weeks Discharge Medications: New Eliquis 5 mg Tablet 5 mg PO BID Qty: 60 0RF atorvastatin 40 mg Tablet 40 mg PO DAILY Qty: 30 0RF metoprolol tartrate 25 mg tablet 12.5 mg PO BID Qty: 30 0RF Continued (DME) lancets [FreeStyle Lancets] 28 gauge misc See Rx Instructions .ROUTE .MEDSUPPLY Qty: 100 1RF Rx Instructions: As directed (DME) FreeStyle Lite Strips Strip See Rx Instructions .ROUTE .MEDSUPPLY Qty: 50 1RF Rx Instructions: As directed (DME) blood-glucose meter [FreeStyle Lite Meter] Kit See Rx Instructions .Route Qty: 1 0RF Rx Instructions: As directed albuterol sulfate [Ventolin HFA] 90 mcg/actuation HFA aerosol inhaler 2 puff PO Q6H PRN (Reason: shortness of breath or wheezing) 30 Days Qty: 18 3RF loratadine 10 mg tablet 10 mg PO DAILY 90 Days Qty: 90 2RF losartan 100 mg tablet 100 mg PO DAILY 30 Days Qty: 90 1RF cholecalciferol (vitamin D3) 50 mcg (2,000 unit) capsule 50 mcg PO DAILY 90 Days Qty: 90 2RF metformin 500 mg tablet extended release 24 hr 500 mg PO BID 90 Days Qty: 180 1RF oxybutynin chloride 10 mg tablet extended release 24hr 10 mg PO DAILY 30 Days Qty: 30 3RF pantoprazole 40 mg tablet,delayed release (DR/EC) 40 mg PO DAILY Qty: 90 0RF fluoxetine 20 mg capsule 20 mg PO DAILY 30 Days Qty: 30 3RF multivitamin Tablet 1 tab PO DAILY letrozole 2.5 mg tablet 2.5 mg PO DAILY calcium carbonate [Oyster Shell Calcium] 500 mg calcium (1,250 mg) tablet 500 mg PO BID 30 Days Qty: 60 6RF acetaminophen [Arthritis Pain Relief (acetam)] 650 mg tablet extended release 1,300 mg PO Q8H PRN (Reason: pain) Qty: 84 3RF fluticasone propionate 50 mcg/actuation spray,suspension 1 spray intranasal DAILY 30 Days Qty: 16 3RF Rx Instructions: administer into each nostril Discontinued atorvastatin 10 mg tablet 10 mg PO DAILY Qty: 90 2RF ibuprofen 800 mg tablet 800 mg PO Q8H PRN (Reason: pain) 10 Days Qty: 30 3RF Discharge Orders: Discharge Order (Routine); Ordered 10/18/22 Ordered By: Rosanna Gaming Diet: Diabetic diet Activity on Discharge: As tolerated Stand Alone Forms: Patient Portal Discharge page Care Plan Goals: stroke prevention Health Concerns: atrial fibrillation, recent-onset small embolic stroke Plan of Treatment: home with visiting nurse services for home PT take metoprolol tartrate 12.5 mg twice daily to control heart rate take apixaban 5 mg twice daily to prevent strokes increase atorvastatin from 10 mg to 40 mg daily to prevent strokes see [facility] Cardiology in 4 weeks; they will arrange Holter monitoring Please follow up with your primary care doctor within 1 week. Return to the hospital if you experience recurrent or worsening symptoms. Assessment: See Discharge Summary.
[2022-10-18 12:00] VITALS: BP 127/60; PULSE 70; RESP 20; TEMP 36.3; O2SAT 95
--- NOTE | 2022-10-18 12:51 | MHC.CM.PN ---
ANTIC PT WILL D/C HOME W/[facility] FOR HOME PT, FAMILY WILL TRANSPORT
[2022-10-18 15:31] VITALS: BP 131/72; PULSE 79; RESP 20; TEMP 36.4; O2SAT 96
== END 2022-10-18 17:09 | disposition home health service (06) | DRG 65 ==
LOC: HO.ED 16:31 → HO.EDOVER 20:51 → HO.IMC 10-17 12:15
PROVIDERS: Admitting Provider Physician Assistant; Emergency Provider Internal Medicine; PCP Physician Assistant; Visit Provider Family Medicine
DX: I63.49 Cerebral infarction due to embolism of other cerebral artery (principal); G40.209 Localization-related (focal) (partial) symptomatic epilepsy and epileptic syndromes with complex partial seizures, not intractable, without status epilepticus; I48.91 Unspecified atrial fibrillation; R29.810 Facial weakness; F41.1 Generalized anxiety disorder; E78.5 Hyperlipidemia, unspecified; D64.9 Anemia, unspecified; C50.911 Malignant neoplasm of unspecified site of right female breast; Z79.811 Long term (current) use of aromatase inhibitors; Z90.11 Acquired absence of right breast and nipple; Z87.891 Personal history of nicotine dependence; Z79.84 Long term (current) use of oral hypoglycemic drugs; Z79.899 Other long term (current) drug therapy
CPT/HCPCS: 36415; 70450; 70553; 80048; 80061; 80307; 81003; 82947; 83036; 84443; 84484; 85025; 85610; 85730; 93005; 93880; 95816; 97161; 97165; 97530; 99222; 99285; A9585

== ENCOUNTER → 2022-10-16 18:05 | Outpatient (BNV) | payer MEDICARE, MEDICAID, SELFPAY | PROVIDERS: Admitting Provider Physician Assistant; Emergency Provider Internal Medicine; PCP Physician Assistant; Visit Provider Internal Medicine Cardiovascular Disease | DX: I48.92 Unspecified atrial flutter (principal) | CPT/HCPCS: 93010 ==

== ENCOUNTER → 2022-10-16 20:34 | Outpatient (BNV) | payer MEDICARE, MEDICAID, SELFPAY | PROVIDERS: Admitting Provider Physician Assistant; Emergency Provider Internal Medicine; PCP Physician Assistant; Visit Provider Physician Assistant | DX: R56.9 Unspecified convulsions (principal); I48.92 Unspecified atrial flutter; R55 Syncope and collapse | CPT/HCPCS: 99223; 99232; 99239; G0180 ==

== ENCOUNTER → 2022-10-17 11:38 | Outpatient (BNV) | payer MEDICARE, MEDICAID, SELFPAY | PROVIDERS: Admitting Provider Physician Assistant; Emergency Provider Internal Medicine; PCP Physician Assistant; Visit Provider Internal Medicine Cardiovascular Disease | DX: I48.92 Unspecified atrial flutter (principal) | CPT/HCPCS: 99222 ==

== ENCOUNTER → 2022-10-21 13:27 | Outpatient (REF) | payer MEDICARE, MEDICAID, SELFPAY ==
--- NOTE | 2022-10-21 13:29 | HM_ITS ---
* Total monitoring time about 3 days. * Underlying rhythm is atrial fibrillation. Average ventricular rate 83/Min. Range 56 to 119/Min. Controlled rates. * No significant pauses or AV blocks. * Rare PVCs. Minimal burden. Short run of 3 beats. * One episode of chest pain, correlating with atrial fibrillation/controlled rate. MTDD
== END ==
LOC: HO.CARD 13:27
PROVIDERS: PCP Physician Assistant; Visit Provider Internal Medicine Cardiovascular Disease
DX: I48.92 Unspecified atrial flutter (principal); I48.91 Unspecified atrial fibrillation; R55 Syncope and collapse
CPT/HCPCS: 93242

== ENCOUNTER → 2022-10-21 13:29 | Outpatient (BNV) | payer MEDICARE, MEDICAID, SELFPAY | PROVIDERS: PCP Physician Assistant; Visit Provider Internal Medicine | DX: I48.91 Unspecified atrial fibrillation (principal) | CPT/HCPCS: 93244 ==

== ENCOUNTER 2022-11-03 09:57 | Outpatient (AMB) | payer MEDICARE, MEDICAID, SELFPAY ==
--- NOTE | 2022-11-03 10:01 | MHC.PC.OV ---
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: No Accompanied by: Self / Same As Patient Allergies Penicillins [PENICILLINS] Allergy (Intermediate, Verified 11/03/22 10:02) RASH pravastatin Allergy (Unknown, Verified 11/03/22 10:02) Unknown Tobacco use date assessed: 11/03/22 Fall risk assessment: No Falls in past year Last assessed Fall Risk: 11/03/22 Dental Screening Dental Screen Date: 11/03/22 Did you have a dental visit in the last 12 months?: Yes Did you have a dental problem in the last 6 months where you did not have access to dental care?: No Was dental information given to patient?: Patient has dentist HPI HPI Comments History of Present Illness Details 77-year-old female past medical history significant for right breast cancer hx right total mastectomy, hypertension, type 2 diabetes mellitus, hyperlipidemia, generalized anxiety disorder, depression. 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 Patient developed sudden set lightheadedness and grade patient bilaterally, daughter and EMS noted left-sided facial droop, confusion and patient was unable follow commands. Symptoms resolved completely upon ER arrival. Telemetry showed patient was in a new atrial fibrillation rate 95-105, labs showed leukocytosis of 14 in stable anemia. Echocardiogram completed on 10/07/2022 showed normal LV systolic function with EF 65-70%, no regional wall motion abnormalities. Carotid Doppler showed bilateral Minimal, non-hemodynamically significant stenosis of the proximal left internal carotid artery corresponding to a 0-49% stenosis. Patient was evaluated by Cardiology and plan was to have outpatient Holter monitor and follow-up. Patient was also evaluated by Neurology MRI confirmed small acute left parietal CVA, eeg no significant abnormality or concern for seizure disorder. Patient was started on Eliquis 5 mg b.i.d., Lopressor 12.5 mg b.i.d. and her atorvastatin was increased from 10 mg to 40 mg daily. Patient reports she has completed her 3 day outpatient Holter monitor and she has a follow-up appointment scheduled Cardiology on November 14. Patient states she continues to have [facility] weekly with PT therapy. However this should be ending within the next week. Patient and daughter reports she is back to her baseline. Patient denies any chest pain, palpitations, shortness of breath and syncope. Refill sent on her metoprolol, atorvastatin and Eliquis. Patient requesting note stating she can return to work noted with today's date on it. 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 [facility] Medical History (Updated 10/26/22 @ 00:03 by Idalmis Mccarthy) Asthma Depression DMII (diabetes mellitus, type 2) HAYLIE (generalized anxiety disorder) Hemiparesis of left side of face HLD (hyperlipidemia) HTN (hypertension) Invasive ductal carcinoma of breast, stage 3 Near syncope Surgical History History of bladder surgery History of breast biopsy History of colonoscopy History of lumpectomy of right breast History of tubal ligation Hx of total mastectomy of right breast Family History Father No problems noted. Mother No problems noted. Social History Household Members: Family Housing: House Alcohol intake: never Patient Tobacco Use Status: Former Tobacco user Quit Date: 12 years ago e-Cigarette/Vaping Use: Never Used Second Hand Smoke Exposure: Yes service: No Current occupational status: disabled Cognitive needs: No Hearing needs: No Vision needs: Yes (glasses) Female Reproductive History Menstrual Age of Menarche: 16 Questionnaire PHQ-9 Over the last 2 weeks, how often have you been bothered by any of the following problems? 1. Little interest or pleasure in doing things: not at all 2. Feeling down, depressed, or hopeless: not at all 3. Trouble falling or staying asleep, or sleeping too much: not at all 4. Feeling tired or having little energy: not at all 5. Poor appetite or overeating: not at all 6. Feeling bad about yourself - or that you are a failure or have let yourself or your family down: not at all 7. Trouble concentrating on things, such as reading the newspaper or watching television: not at all 8. Moving or speaking so slowly that other people could have noticed. Or the opposite - being so fidgety or restless that you have been moving around a lot more than usual: not at all 9. Thoughts that you would be better off or of hurting yourself in some way: not at all Total score: 0 Depression Screening Interpretation: Negative 01730 - PHQ-9 Billing: Yes Source: Developed by Drs. David Louis, Jo Jenkins, Mason Zafar and colleagues, with an educational fletcher from [email or web address]. Thrive Questionnaire Date Thrive assessed: 11/03/22 I am a: Patient What is your living situation today?: I have a steady place to live Within the past 12 months, did the food you bought not last and you didn't have the money to get more?: Never true Within the past 12 months, did you worry whether your food would run out before you got money to buy more?: Never true Do you have trouble paying for medicines?: No Do you have trouble getting transportation to medical appointments?: No Do you have trouble paying your heating and electricity bill?: No Do you have trouble taking care of your child, family member or friend?: No Do you have trouble with day-to-day activities such as bathing, preparing meals, shopping, managing finances, etc.?: No Are you currently unemployed and looking for a job?: No Are you interested in more education?: No Please select the resources that you would like help with: None Currently or been in a relationship where the following occur: no concerns reported AUDIT C Alcohol Use Questionnaire (AUDIT-C) 1. How often do you have a drink containing alcohol?: Never 3. How often do you have six or more drinks on one occasion?: Never Total Score: 0 HAYLIE-7 AMB Questionnaire HAYLIE-7 Date HAYLIE - 7 assessed: 11/03/22 Feeling nervous, anxious, or on edge: 0 = Not at all Not being able to stop or control worryin = Not at all Worrying too much about different things: 0 = Not at all Trouble relaxin = Not at all Being so restless that it is hard to sit still: 0 = Not at all Becoming easily annoyed or irritable: 0 = Not at all Feeling afraid as if something awful might happen: 0 = Not at all Total HAYLIE-7 score (0-4 normal; 5-9 mild; 10-14 moderate; 15-21 severe): 0 Source: Developed by Drs. David Louis, Jo Jenkins, Mason Zafar and colleagues, with an educational fletcher from [email or web address]. Review of Systems Const Denies chills, Denies fatigue, Denies fever(s) and Denies poor appetite Eyes Denies no additional complaints ENT Reports Normal hearing present Card Denies chest pain, Denies syncope, Denies rapid heart rate and Denies dyspnea Resp Denies cough and Denies dyspnea GI Denies change in stool character, Denies constipation, Denies diarrhea, Denies nausea and Denies vomiting Denies urinary frequency, Denies dysuria and Denies urinary urgency Neuro Reports Normal hearing present, Denies confusion and Denies syncope Psych Denies confusion Endo Denies fatigue Physical exam (Primary Care) Vital Signs: Last Vital Signs Pulse 80 11/03/22 10:02 BP 132/78 11/03/22 10:02 Pulse Ox 96 11/03/22 10:02 Oxygen Delivery Method Room Air 11/03/22 10:02 BMI result Body Mass Index 35.5 Tobacco/Smoking Status: Tobacco use Status Tobacco use date assessed 11/03/22 11/03/22 10:09 Patient Tobacco Use Status Former Tobacco user 11/03/22 10:09 e-Cigarette/Vaping Use Never Used 11/03/22 10:09 PHQ-9: PHQ-9 Score PHQ-9: Total score 0 11/03/22 10:44 Depression Screening Interpretation: Negative Thrive Assessment: Date of Thrive Assessment Date Thrive assessed 11/03/22 11/03/22 10:09 Currently or been in a relationship where the following occur: no concerns reported Const General: No confusion Orientation/consciousness: No confusion HENMT Head: Yes normocephalic and Yes atraumatic Eyes Conjunctivae: conjunctivae normal Chest Chest palpation & inspection: normal inspection of the chest Resp Effort & Inspection: normal respiratory effort Auscultation: clear to auscultation bilaterally, no crackles, no rhonchi and no wheezes Cardio Rate: regular rate Rhythm: regular rhythm Heart sounds: S1 normal heart sound present and S2 normal heart sound present GI Inspection: Yes normal to inspection Neuro General: No confusion Cranial nerves: Yes Normal hearing present Extrem General: No edema Assessment and Plan Assessment & Plan (1) Atrial fibrillation: Code(s): I48.91 - Unspecified atrial fibrillation Plan: Continue on metoprolol 12.5 mg b.i.d. and Eliquis 5 mg b.i.d. for rate control on anticoagulation. Keep scheduled follow-up with Cardiology on November 14. (2) HLD (hyperlipidemia): Code(s): E78.5 - Hyperlipidemia, unspecified Qualifiers: Hyperlipidemia type: mixed hyperlipidemia Qualified Code(s): E78.2 - Mixed hyperlipidemia Plan: Continue on atorvastatin 40 mg daily. LDL: 73 Avoid fried foods, chicken skin, eggs, butter,margarine, pastries and? red meat. (3) DMII (diabetes mellitus, type 2): Code(s): E11.9 - Type 2 diabetes mellitus without complications Qualifiers: Diabetes mellitus complication status: without complication Diabetes mellitus adjunct faculty for medical terminology insulin use: without adjunct faculty for medical terminology use Qualified Code(s): E11.9 - Type 2 diabetes mellitus without complications Plan: Continue on metformin 500 mg b.i.d. Follow low-carbohydrate diet HGB A1c: 5.1% (4) Uncontrolled hypertension: Code(s): I10 - Essential (primary) hypertension Plan: Continue on losartan 100 mg daily. Blood pressure goal less than 140/90. Follow low-salt diet and exercise. (5) Hospital discharge follow-up: Code(s): Z09 - Encounter for follow-up examination after completed treatment for conditions other than malignant neoplasm Plan Keep scheduled follow-up with PCP in 3 months. Medications: Refilled apixaban (Eliquis) 5 mg PO BID 60 tabs 0RF atorvastatin 40 mg PO DAILY 30 tabs 3RF metoprolol tartrate 12.5 mg (1/2 x 25 mg) PO BID 30 tabs 3RF Coding Level of Care Code Est Pt Level 4 (79932) Diagnoses Atrial fibrillation I48.91 HLD (hyperlipidemia) E78.2 Hyperlipidemia type: mixed hyperlipidemia DMII (diabetes mellitus, type 2) E11.9 Diabetes mellitus complication status: without complication Diabetes mellitus adjunct faculty for medical terminology insulin use: without adjunct faculty for medical terminology use Uncontrolled hypertension I10 Hospital discharge follow-up Z09
[2022-11-03 10:02] VITALS: BP 132/78; PULSE 80; O2SAT 96; BMI 35.5
== END 2022-11-03 10:32 | disposition home or self-care (01) ==
PROVIDERS: PCP Physician Assistant; Visit Provider Nurse Practitioner Family
DX: I48.91 Unspecified atrial fibrillation (principal); E78.2 Mixed hyperlipidemia; E11.9 Type 2 diabetes mellitus without complications; I10 Essential (primary) hypertension; Z09 Encounter for follow-up examination after completed treatment for conditions other than malignant neoplasm
CPT/HCPCS: 99214

== ENCOUNTER 2022-11-11 10:23 | Emergency (ER) | payer MEDICARE, MEDICAID, SELFPAY ==
--- NOTE | ~2022-11-11 | XR_ITS ---
EXAMINATION: XR CHEST CLINICAL INFORMATION: Chest pain. COMPARISON: Chest radiographs dated 05/20/2020. TECHNIQUE: 2 views of the chest were obtained. FINDINGS: Linear markings in the left mid and lower lung pressley as well as of the right lung base. The heart is mildly enlarged. Minimal blunting of the costophrenic angles and sulci. The mediastinal structures are unremarkable. Multiple surgical clips overlie the right lateral chest. XR/XR chest 2V IMPRESSION: Mild cardiomegaly as well as linear markings in the lower lung pressley, left greater than right represent interval increase in the previous study suggestive of atelectasis and/or scarring. Very small pleural effusions cannot be excluded.
--- NOTE | 2022-11-11 10:25 | ECG_ITS ---
Test Reason : CP Blood Pressure : / mmHG Vent. Rate : 086 BPM Atrial Rate : 000 BPM P-R Int : 000 ms QRS Dur : 116 ms QT Int : 388 ms P-R-T Axes : 000 -06 -10 degrees QTc Int : 464 ms Atrial fibrillation Right bundle branch block T wave abnormality, consider lateral ischemia Abnormal ECG When compared with ECG of 16-OCT-2022 18:33, Non-specific change in ST segment in Lateral leads T wave inversion now evident in Anterolateral leads Referred By: Generic ED Physician Electronically Signed By:NICOLETTE DE LA CRUZ
[2022-11-11 10:32] VITALS: BP 112/53; PULSE 87; RESP 16; TEMP 36.7; O2SAT 95; BMI 34.5
[2022-11-11 13:34] VITALS: BP 127/64; PULSE 83; RESP 16; TEMP 37; O2SAT 99
--- NOTE | 2022-11-11 13:48 | ECG_ITS ---
Test Reason : cp Blood Pressure : / mmHG Vent. Rate : 079 BPM Atrial Rate : 000 BPM P-R Int : 000 ms QRS Dur : 110 ms QT Int : 376 ms P-R-T Axes : 000 002 000 degrees QTc Int : 431 ms Atrial fibrillation Incomplete right bundle branch block ST & T wave abnormality, consider anterior ischemia Abnormal ECG When compared with ECG of 11-NOV-2022 10:30, No significant change was found Referred By: Tong Christianson Electronically Signed By:NICOLETTE DE LA CRUZ
--- NOTE | 2022-11-11 14:07 | PC.NURSE ---
pt refusing oxycodone - verbalizes that she sees monsters when she takes the medication. provider notified and ordering something else. tech bedside performing ekg and drawing labs.
[2022-11-11] MEDS: traMADoL HCL 50 MG TABLET PO (14:12)
--- NOTE | 2022-11-11 14:13 | PC.NURSE ---
medication administered per provider order.
--- NOTE | 2022-11-11 14:13 | ED.GENADULT ---
HPI - General Adult General Chief complaint: Arrhythmia/Palpitations Stated complaint: chest pain Time Seen by Provider: 11/11/22 11:32 Source: patient and family Mode of arrival: ambulatory Limitations: no limitations History of Present Illness HPI narrative: 77-year-old female presents with chest pain. Chest pain started yesterday. Is intermittent. Typically the pain is an 8/10 but at its worse is a 10/10. The the pain is sternal in nature. Does not radiate. The pain is described as sharp. It can be associated with some shortness of breath when the pain is very severe. She denies any nausea vomiting. She denies any lower extremity edema. She has no history of PE or DVT. She denies any significant cardiac history other than atrial fibrillation for which he is on anticoagulation. Related Data Home Medications Medication Instructions Recorded Confirmed letrozole 2.5 mg tablet 2.5 mg PO DAILY 12/10/20 10/17/22 multivitamin 1 tab PO DAILY 10/17/22 10/17/22 Previous Rx's Medication Instructions Recorded lancets 28 gauge (FreeStyle #100 ea 11/26/20 Lancets) blood sugar diagnostic (FreeStyle #50 ea 11/27/20 Lite Strips) blood-glucose meter (FreeStyle #1 ea 11/27/20 Lite Meter kit) Ventolin HFA 90 mcg/actuation 2 puff PO Q6H PRN shortness of 05/03/21 aerosol inhaler (albuterol sulfate) breath or wheezing 30 days #18 grams calcium carbonate 500 mg calcium 500 mg PO BID 30 days #60 tabs 06/21/21 (1,250 mg) tablet (Oyster Shell Calcium) loratadine 10 mg tablet 10 mg PO DAILY 90 days #90 tabs 12/02/21 fluticasone propionate 50 1 spray intranasal DAILY 30 days 02/15/22 mcg/actuation nasal #16 grams spray,suspension losartan 100 mg tablet 100 mg PO DAILY 30 days #90 tabs 05/27/22 cholecalciferol (vitamin D3) 50 50 mcg PO DAILY 90 days #90 caps 06/14/22 mcg (2,000 unit) capsule metformin 500 mg tablet,extended 500 mg PO BID 90 days #180 tabs 07/01/22 release 24 hr oxybutynin chloride 10 mg 10 mg PO DAILY 30 days #30 tabs 07/01/22 tablet,extended release 24 hr acetaminophen 650 mg 1,300 mg PO Q8H PRN pain #84 tabs 08/17/22 tablet,extended release (Arthritis Pain Relief (acetaminophen) ER) fluoxetine 20 mg capsule 20 mg PO DAILY 30 days #30 caps 09/19/22 pantoprazole 40 mg tablet,delayed 40 mg PO DAILY #90 tabs 10/23/22 release apixaban 5 mg tablet (Eliquis) 5 mg PO BID #60 tabs 11/03/22 atorvastatin 40 mg tablet 40 mg PO DAILY #30 tabs 11/03/22 metoprolol tartrate 25 mg tablet 12.5 mg PO BID #30 tabs 11/03/22 tramadol 50 mg tablet 50 mg PO Q8H PRN pain #7 tabs 11/11/22 Allergies Allergy/AdvReac Type Severity Reaction Status Date / Time Penicillins [PENICILLINS] Allergy Intermediate RASH Verified 11/03/22 10:02 pravastatin Allergy Unknown Unknown Verified 11/03/22 10:02 Review of Systems Review of Systems: CONSTITUTIONAL: Denies weight loss, fever and chills. HEENT: Denies changes in vision and hearing. RESPIRATORY: Denies SOB and cough. CV: Denies palpitations + CP. GI: Denies abdominal pain, nausea, vomiting and diarrhea. : Denies dysuria and urinary frequency. MSK: Denies myalgia and joint pain. SKIN: Denies rash and pruritus. NEUROLOGICAL: Denies headache and syncope. PSYCHIATRIC: Denies recent changes in mood. Denies anxiety and depression. All other ROS are negative unless in HPI PMFSH Past Medical History Medical History Asthma Depression DMII (diabetes mellitus, type 2) HAYLIE (generalized anxiety disorder) Hemiparesis of left side of face HLD (hyperlipidemia) HTN (hypertension) Invasive ductal carcinoma of breast, stage 3 Near syncope Surgical History History of bladder surgery History of breast biopsy History of colonoscopy History of lumpectomy of right breast History of tubal ligation Hx of total mastectomy of right breast Family History Family History Father No problems noted. Mother No problems noted. Social History Social History Household Members: Family Housing: House Alcohol intake: never Patient Tobacco Use Status: Former Tobacco user Quit Date: 12 years ago Smoked in Last 30 Days: No e-Cigarette/Vaping Use: Never Used Second Hand Smoke Exposure: Yes Use of substances other than those prescribed or required for medical reasons: No Advance Directives: Yes Advance Directives Information Provided: Yes Advance Directives on File: No service: No Current occupational status: disabled Cognitive needs: No Hearing needs: No Vision needs: Yes (glasses) Physical Exam ED Vital Signs: Vital Signs - 24 hr 11/11/22 10:32 11/11/22 13:34 11/11/22 14:38 Temperature 98.1 F 98.6 F Pulse Rate 87 83 82 Respiratory Rate 16 16 21 H Blood Pressure 112/53 L 127/64 142/78 H Pulse Oximetry 95 99 96 Oxygen Delivery Method Room Air Room Air Room Air 11/11/22 15:40 Temperature 98.4 F Pulse Rate 90 Respiratory Rate 16 Blood Pressure 135/98 H Pulse Oximetry 96 Oxygen Delivery Method Room Air BMI result Body Mass Index 34.5 GEN: Well developed, no acute distress, alert, oriented HEENT: Normocephalic, atraumatic, normal external ears, nose appears normal, no oropharyngeal edema or exudates Eyes: Normal to appearance Neck: Supple, no lymphadenopathy Respiratory: Talks in complete sentences, no respiratory distress, clear to auscultation bilaterally Cardiovascular: Irregularly irregular, no murmurs rubs or gallops Abdomen: Soft, nontender, nondistended, no guarding, no rebound Back: No CVA tenderness Extremities: No clubbing cyanosis or edema Neurologic: No focal neurologic deficits, cranial nerves 2-12 intact, strength is 5/5 bilaterally Skin: No rash Chest wall: Reproducible sternal tenderness to palpation Course Course Course Narrative: The workup is complete. Chest x-ray did not reveal any significant acute cardiopulmonary disease. There is questionable atelectasis and questionable small pleural effusion. Her troponin is negative. EKG is nonischemic. I will discharge the patient on some analgesics. She has very reproducible chest pain to suggest a musculoskeletal component. Patient will return for any worsening or concerning symptoms. Medications Administered Discontinued Medications Generic Name Dose Route Start Last Admin Trade Name Freq PRN Reason Stop Dose Admin Tramadol HCl 50 mg 11/11/22 14:05 11/11/22 14:12 Tramadol Hcl 50 Mg Tablet PO 11/11/22 14:06 50 mg ONCE ONE Administration Medical Decision Making Medical Decision Making [facility] Narrative: 77-year-old female presents with chest pain. The chest pain is reproducible on physical exam. Cardiopulmonary exam is otherwise unremarkable with exception of an irregularly irregular heart rate. The fact that there is reproducibility on exam suggests that this is a musculoskeletal etiology. Additionally, patient is anticoagulated making pulmonary embolus also less likely. Will get a chest x-ray to rule out any cardiopulmonary disease process. Also would like to get a troponin to rule out cardiac etiology which I do not suspect at this time. I will provide the patient with analgesia and the course of workup. Differential diagnosis includes musculoskeletal, costochondritis, strain, sprain, acute coronary syndrome, pulmonary embolus, bronchitis, pneumonia Differential Diagnosis Differential Diagnoses: The differential diagnosis associated with the presentation includes (See above) Admission/Observation Consideration of admission/observation: Escalation of care including admission/observation considered Lab Data [facility] Lab Attestation statement: I reviewed the patient's lab results. 11/11/22 14:35 11/11/22 14:35 Labs: Lab Results 11/11/22 11/11/22 11/11/22 Range/Units 14:35 14:35 14:35 WBC 10.5 (4.8-10.8) X10*3/uL RBC 4.32 (4.20-5.50) X10*6/uL Hgb 11.6 L (12.0-16.0) g/dl Hct 36.3 L (37.0-47.0) % MCV 84.0 (80.0-98.0) fL MCH 26.9 L (27.0-33.0) pg MCHC 32.0 (31.0-35.0) g/dl RDW 15.2 (11.0-16.0) % Plt Count 315 (160-400) X10*3/uL MPV 10.3 (9.4-12.3) fL Immature Gran % (Auto) 0.5 H (0.0-0.4) % Neut % (Auto) 69.9 (45-73) % Lymph % (Auto) 15.9 L (20-40) % [place] % (Auto) 12.7 H (2-11) % Eos % (Auto) 0.4 (0-4) % Baso % (Auto) 0.6 (0-2) % Lymph # (Auto) 1.7 (1.2-4.9) X10*3/uL [place] # (Auto) 1.3 H (0.1-1.2) X10*3/uL Eos # (Auto) 0.0 (0.0-0.4) X10*3/uL Baso # (Auto) 0.1 (0.0-0.2) X10*3/uL Abs Immat Gran (auto) 0.05 H (0.00-0.03) X10*3/uL Absolute Neuts (auto) 7.4 (2.0-8.3) x10*3/uL Absolute Nucleated RBC 0.000 (0.0-0.012) X10*3/uL Nucleated RBC % (auto) 0.0 (0.0-0.2) /100WBC Sodium 143 (135-145) mmol/L Potassium 3.3 (3.3-5.1) mmol/L Chloride 108 (96-108) mmol/L Carbon Dioxide 24 (22-29) mmol/L Anion Gap 14 (12-20) BUN 9 (9-16) mg/dL Creatinine 0.73 (0.5-1.4) mg/dL Estim Creat Clear Calc 70.2 Estimated GFR > 60 Random Glucose 94 (60-115) mg/dL Calcium 9.6 (8.4-10.2) mg/dL Troponin I High Sens 2.7 (<3.5-17.0) ng/L Independent Interpretation I performed an independent interpretation of an: EKG (Atrial fibrillation heart rate 79, no acute ST elevations depressions, nonspecific ST T-wave changes.) and Plain X-Ray (Chest: NAD) Radiology Impression Discussion of test interpretation with radiology: I have reviewed the radiologist's reading. Radiologist Impression: XR/XR chest 2V IMPRESSION: Mild cardiomegaly as well as linear markings in the lower lung pressley, left greater than right represent interval increase in the previous study suggestive of atelectasis and/or scarring. Very small pleural effusions cannot be excluded. Dictated By: Víctor Chaney MD Signed By: <Electronically signed by Víctor Chaney MD in OV> 11/11/22 9331 Prescription Management I considered prescription management with: Pain Medication and Antibiotic Discharge Plan Discharge Clinical Impression: Chest pain Clinical Impression: (Ruled Out): Osteopenia Patient Disposition: Home, Self-Care Instructions: Chest Pain (ED) Prescriptions: New tramadol 50 mg tablet 50 mg PO Q8H PRN (Reason: pain) Qty: 7 0RF No Action (DME) lancets [FreeStyle Lancets] 28 gauge misc See Rx Instructions .ROUTE .MEDSUPPLY Qty: 100 1RF Rx Instructions: As directed (DME) FreeStyle Lite Strips Strip See Rx Instructions .ROUTE .MEDSUPPLY Qty: 50 1RF Rx Instructions: As directed (DME) blood-glucose meter [FreeStyle Lite Meter] Kit See Rx Instructions .Route Qty: 1 0RF Rx Instructions: As directed albuterol sulfate [Ventolin HFA] 90 mcg/actuation HFA aerosol inhaler 2 puff PO Q6H PRN (Reason: shortness of breath or wheezing) 30 Days Qty: 18 3RF loratadine 10 mg tablet 10 mg PO DAILY 90 Days Qty: 90 2RF losartan 100 mg tablet 100 mg PO DAILY 30 Days Qty: 90 1RF cholecalciferol (vitamin D3) 50 mcg (2,000 unit) capsule 50 mcg PO DAILY 90 Days Qty: 90 2RF metformin 500 mg tablet extended release 24 hr 500 mg PO BID 90 Days Qty: 180 1RF oxybutynin chloride 10 mg tablet extended release 24hr 10 mg PO DAILY 30 Days Qty: 30 3RF fluoxetine 20 mg capsule 20 mg PO DAILY 30 Days Qty: 30 3RF pantoprazole 40 mg tablet,delayed release (DR/EC) 40 mg PO DAILY Qty: 90 0RF multivitamin Tablet 1 tab PO DAILY letrozole 2.5 mg tablet 2.5 mg PO DAILY calcium carbonate [Oyster Shell Calcium] 500 mg calcium (1,250 mg) tablet 500 mg PO BID 30 Days Qty: 60 6RF acetaminophen [Arthritis Pain Relief (acetam)] 650 mg tablet extended release 1,300 mg PO Q8H PRN (Reason: pain) Qty: 84 3RF Eliquis 5 mg tablet 5 mg PO BID Qty: 60 0RF atorvastatin 40 mg tablet 40 mg PO DAILY Qty: 30 3RF metoprolol tartrate 25 mg tablet 12.5 mg PO BID Qty: 30 3RF fluticasone propionate 50 mcg/actuation spray,suspension 1 spray intranasal DAILY 30 Days Qty: 16 3RF Rx Instructions: administer into each nostril Referrals: Efraín Salcedo PA-C [Primary Care Provider] - 3 days Print Language: Moldovan
--- NOTE | 2022-11-11 14:29 | PC.NURSE ---
20g IV placed in the left AC w/o complications.
[2022-11-11 14:38] VITALS: BP 142/78; PULSE 82; RESP 21; O2SAT 96
[2022-11-11 14:41] LABS: MANUAL DIFF FLAG NO
[2022-11-11 14:50] LABS: Basophils Absolute Auto 0.1 X10*3/uL (0.0-0.2); Basophils Percent Auto 0.6 % (0-2); Eosinophils Percent Auto 0.4 % (0-4); Hematocrit 36.3 % (37.0-47.0); Hemoglobin 11.6 g/dl (12.0-16.0); Imm Gran Abs Auto 0.05 X10*3/uL (0.00-0.03); Imm Gran Pct Auto 0.5 % (0.0-0.4); Lymphocytes Absolute Auto 1.7 X10*3/uL (1.2-4.9); Lymphocytes Percent Auto 15.9 % (20-40); Mean Corpuscular Hemoglobin 26.9 pg (27.0-33.0); Mean Platelet Volume 10.3 fL (9.4-12.3); Monocytes Absolute Auto 1.3 X10*3/uL (0.1-1.2); Monocytes Percent Auto 12.7 % (2-11); Neutrophils Absolute Auto 7.4 x10*3/uL (2.0-8.3); Neutrophils Percent Auto 69.9 % (45-73); Platelet Count 315 X10*3/uL (160-400); Red Blood Count 4.32 X10*6/uL (4.20-5.50); Red Cell Distribution Width 15.2 % (11.0-16.0); White Blood Count 10.5 X10*3/uL (4.8-10.8)
[2022-11-11 15:04] LABS: Anion Gap 14 (12-20); Blood Urea Nitrogen 9 mg/dL (9-16); Calcium 9.6 mg/dL (8.4-10.2); Carbon Dioxide 24 mmol/L (22-29); Chloride 108 mmol/L (96-108); Creatinine Clr Calc Pharmacy 70.2; Estimated Glomerular Filt Rate > 60; Glucose Random 94 mg/dL (60-115); Potassium 3.3 mmol/L (3.3-5.1); Sodium 143 mmol/L (135-145)
[2022-11-11 15:10] LABS: Troponin-I High Sensitivity 2.7 ng/L (<3.5-17.0)
[2022-11-11 15:40] VITALS: BP 135/98; PULSE 90; RESP 16; TEMP 36.9; O2SAT 96
--- NOTE | 2022-11-11 15:43 | PC.NURSE ---
pt a&ox3, vss, afib on the monitoring manager. pt verbalizing pain decreased to a 7/10 pain in her chest substernally. pt verbalizes that the pain increases with movement. pt's family/friend bedside. call muñoz placed within reach.
== END 2022-11-11 16:17 | disposition home or self-care (01) ==
PROVIDERS: Emergency Provider Emergency Medicine; PCP Physician Assistant
DX: R07.9 Chest pain, unspecified (principal); E11.9 Type 2 diabetes mellitus without complications; I10 Essential (primary) hypertension; E78.5 Hyperlipidemia, unspecified; I48.91 Unspecified atrial fibrillation; Z79.84 Long term (current) use of oral hypoglycemic drugs; Z79.01 Long term (current) use of anticoagulants; Z79.899 Other long term (current) drug therapy; Z87.891 Personal history of nicotine dependence
CPT/HCPCS: 36415; 71046; 80048; 84484; 85025; 93005; 99283; 99285

== ENCOUNTER → 2022-11-11 10:25 | Outpatient (BNV) | payer MEDICARE, MEDICAID, SELFPAY | PROVIDERS: Emergency Provider Emergency Medicine; PCP Physician Assistant; Visit Provider Internal Medicine | DX: R07.9 Chest pain, unspecified (principal) | CPT/HCPCS: 93010 ==

== ENCOUNTER 2022-11-14 10:01 | Outpatient (AMB) | payer MEDICARE, MEDICAID, SELFPAY ==
[2022-11-14 10:26] VITALS: BP 130/90; PULSE 78; BMI 34.0
--- NOTE | 2022-11-14 10:26 | A.OFFVIS_ITS ---
Intake Vital Signs 11/14/22 10:26 Height 5 ft 3 in Weight 191 lb 12.835 oz BMI 34.0 BP 130/90 H Blood Pressure Location Lt brachial Position Sitting Pulse 78 Pulse Source Pulse Oximeter Intake Visit Reasons: [facility] after holter post CVA Intake Note: [facility] DC after holter post CVA Funeral Car Driver Required: No Allergies Penicillins [PENICILLINS] Allergy (Intermediate, Verified 11/14/22 10:34) RASH pravastatin Allergy (Unknown, Verified 11/14/22 10:34) Unknown Medication List - Last Reconciled 11/14/22 by SAMANTHA Figueroa acetaminophen ER (Arthritis Pain Relief (acetaminophen) ER) 1,300 mg (2 x 650 mg) PO Q8H PRN apixaban (Eliquis) 5 mg PO BID atorvastatin 40 mg PO DAILY blood sugar diagnostic (FreeStyle Lite Strips) As directed blood-glucose meter (FreeStyle Lite Meter kit) As directed calcium carbonate (Oyster Shell Calcium) 500 mg PO BID 30 days cholecalciferol (vitamin D3) 50 mcg PO DAILY 90 days fluoxetine 20 mg PO DAILY 30 days fluticasone propionate 50 mcg/actuation 1 spray intranasal DAILY 30 days lancets (FreeStyle Lancets) As directed loratadine 10 mg PO DAILY 90 days losartan 100 mg PO DAILY 30 days metformin ER 500 mg PO BID 90 days metoprolol tartrate 12.5 mg (1/2 x 25 mg) PO BID multivitamin 1 tab PO DAILY oxybutynin chloride ER 10 mg PO DAILY 30 days pantoprazole 40 mg PO DAILY Ventolin HFA 90 mcg/actuation (albuterol sulfate) 2 puffs PO Q6H PRN 30 days NS HPI [facility] dc after holter post CVA HPI Details Karena is a 77-year-old medical history of hypertension, hyperlipidemia, diabetes, mild obesity who was recently admitted to [facility] after having an episode at home does concerning for near syncope with graying of vision and left-sided facial droop and aphasia, described as brief by her daughter. EMS was called and patient was evaluated and admitted with new findings of atrial fibrillation. She was evaluated by Neurology who thought she may have seizure-type event, MRI confirmed tiny left parietal infarct. Today she reports she has been doing well since her hospital discharge. She has no residual neurological affects. She has had no seizure-type activity. 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 She does not have any heart palpitations. No fatigue, shortness of breath. No chest discomfort at rest or with activity. No dizziness, presyncope, syncope, falls. No PND, orthopnea or edema. Her daughter is present. [facility] Medical History Asthma Depression DMII (diabetes mellitus, type 2) HAYLIE (generalized anxiety disorder) Hemiparesis of left side of face HLD (hyperlipidemia) HTN (hypertension) Invasive ductal carcinoma of breast, stage 3 Near syncope Surgical History History of bladder surgery History of breast biopsy History of colonoscopy History of lumpectomy of right breast History of tubal ligation Hx of total mastectomy of right breast Family History Father No problems noted. Mother No problems noted. Social History Household Members: Family Housing: House Alcohol intake: never Patient Tobacco Use Status: Former Tobacco user Quit Date: 12 years ago e-Cigarette/Vaping Use: Never Used Second Hand Smoke Exposure: Yes service: No Current occupational status: disabled Cognitive needs: No Hearing needs: No Vision needs: Yes (glasses) Female Reproductive History Menstrual Age of Menarche: 16 Review of Systems Const All systems reviewed & are unremarkable except as noted in HPI and below ENT Reports dizziness Card Denies chest pain, Denies chest pain at rest, Denies chest pain with activity, Denies rapid heart rate, Denies pedal edema, Denies edema, Denies leg edema, Denies lightheadedness, Denies palpitations, Denies dyspnea, Denies dyspnea on exertion and Denies orthopnea Resp Denies cough, Denies dyspnea and Denies dyspnea on exertion GI Denies hematochezia and Denies change in stool character Musc Denies abnormal gait, Reports limited range of motion, Reports muscle cramps, Denies muscle weakness, Denies numbness, Denies radiating pain into limb, Denies stiffness and Denies tingling Neuro Denies abnormal gait, Reports dizziness, Denies numbness and Denies tingling Endo Denies palpitations Physical Exam Vital Signs: Last Vital Signs Pulse 78 11/14/22 10:26 BP 130/90 H 11/14/22 10:26 BMI result Body Mass Index 34.0 Const General: cooperative, healthy appearing, comfortable and no acute distress Orientation/consciousness: patient oriented x3 Neck Neck: Yes normal visual inspection Resp Effort & Inspection: normal respiratory effort Auscultation: clear to auscultation bilaterally, no crackles, no rales, no rhonchi and no wheezes Cardio Jugular venous distension: no JVD Rate: regular rate Rhythm: abnormal rhythm Heart sounds: S1 normal heart sound present, S2 normal heart sound present, no murmurs and no rubs Neuro General: patient oriented x3 Extrem General: Yes normal to inspection Psych Appearance: grossly normal Mental Status: mental status grossly normal Speech and movement: Normal speech and movement present Assessment & Plan Assessment & Plan (1) Atrial fibrillation, new onset: Code(s): I48.91 - Unspecified atrial fibrillation Plan: New finding of atrial fibrillation during hospital admission, 10/16/2022. She had a neurological type event at home that was short-lived and testing confirms a tiny left parietal infarct. No recurrent neuro logical events since that time. She had been started on Eliquis for anticoagulation. She was put on low-dose metoprolol for heart rate control. A Holter monitor done 10/21/2022 for 3 days shows atrial fibrillation throughout, average heart rate 83, heart rate range 56 to 119. At this time she has no reported symptoms with the AFib. Her echo done 10/07/2022 showed EF 65-70%, no regional wall motion abnormalities. Will obtain a nuclear stress test for further evaluation for underlying reason for AFib. She does have multiple cardiac risk factors including hypertension, hyperlipidemia and diabetes. At present will continue with rate control for AFib as she is asymptomatic and has normal EF. All the above reviewed with her. Cardiology follow-up in 6 weeks to go over test results and re-evaluate for symptoms. (2) Chest pain: Code(s): R07.9 - Chest pain, unspecified Plan: ER evaluation on 11/11/2022 for chest discomfort. She ruled out for ACS. Nuclear stress test being planned as above (3) Near syncope: Code(s): R55 - Syncope and collapse Plan: Evaluated by Neurology. Suspected possible seizure type active however daughter tells me that the EEG came out normal. I am not seeing the results in our system for review. She did have a brain MRI on 10/18/2022 showing a tiny acute white matter infarct involving the left parietal lobe and chronic small vessel ischemic changes within the periventricular white matter. She underwent a carotid ultrasound on 10/17/2022 showing right and left ICA carotid stenosis 0- 49%. Patient states she was told she did not need to have neurology follow-up as outpatient (4) Hospital discharge follow-up: Code(s): Z09 - Encounter for follow-up examination after completed treatment for conditions other than malignant neoplasm Orders: Orders CA lexiscan stress w rebel Today I48.91 - Unspecified atrial fibrillation NM cardiolite stress test Today I48.91 - Unspecified atrial fibrillation Coding Level of Care Code Est Pt Level 4 (40012) Diagnoses Atrial fibrillation, new onset I48.91 Chest pain R07.9 Near syncope R55 Hospital discharge follow-up Z09 Time Spent (min) 26 Comment Chart review, documentation, interview, assessment
== END 2022-11-14 11:00 | disposition home or self-care (01) ==
PROVIDERS: PCP Physician Assistant; Referring Provider Physician Assistant; Visit Provider Nurse Practitioner Family
DX: I48.91 Unspecified atrial fibrillation (principal); R07.9 Chest pain, unspecified; R55 Syncope and collapse; Z09 Encounter for follow-up examination after completed treatment for conditions other than malignant neoplasm
CPT/HCPCS: 99214

== ENCOUNTER → 2022-11-14 10:01 | Outpatient (BNVA) | payer MEDICARE, MEDICAID, SELFPAY | PROVIDERS: PCP Physician Assistant; Referring Provider Physician Assistant; Visit Provider Nurse Practitioner Family | DX: I48.91 Unspecified atrial fibrillation (principal); R07.9 Chest pain, unspecified; R55 Syncope and collapse | CPT/HCPCS: 99212 ==

== ENCOUNTER 2022-11-21 14:02 | Outpatient (AMB) | payer MEDICARE, MEDICAID, SELFPAY ==
[2022-11-21 14:09] VITALS: BP 118/82; PULSE 95; O2SAT 96; BMI 33.5
--- NOTE | 2022-11-21 14:09 | MHC.PC.OV ---
Vital Signs 11/21/22 14:09 Height 5 ft 3 in Weight 189 lb BMI 33.5 BP 118/82 Blood Pressure Location Lt brachial Position Sitting Pulse 95 Pulse Source Pulse Oximeter Pulse Oximetry (%) 96 Oxygen Delivery Method Room Air Intake Visit Reasons: ED f/u, pt declining Allergies Penicillins [PENICILLINS] Allergy (Intermediate, Verified 11/21/22 14:31) RASH pravastatin Allergy (Unknown, Verified 11/21/22 14:31) Unknown Medication List - Last Reconciled 11/21/22 by MATT Elizalde acetaminophen ER (Arthritis Pain Relief (acetaminophen) ER) 1,300 mg (2 x 650 mg) PO Q8H PRN apixaban (Eliquis) 5 mg PO BID atorvastatin 40 mg PO DAILY blood sugar diagnostic (FreeStyle Lite Strips) As directed blood-glucose meter (FreeStyle Lite Meter kit) As directed calcium carbonate (Oyster Shell Calcium) 500 mg PO BID 30 days cholecalciferol (vitamin D3) 50 mcg PO DAILY 90 days fluoxetine 20 mg PO DAILY 30 days fluticasone propionate 50 mcg/actuation 1 spray intranasal DAILY 30 days lancets (FreeStyle Lancets) As directed loratadine 10 mg PO DAILY 90 days losartan 100 mg PO DAILY 30 days metformin ER 500 mg PO BID 90 days metoprolol tartrate 12.5 mg (1/2 x 25 mg) PO BID multivitamin 1 tab PO DAILY oxybutynin chloride ER 10 mg PO DAILY 30 days pantoprazole 40 mg PO DAILY Ventolin HFA 90 mcg/actuation (albuterol sulfate) 2 puffs PO Q6H PRN 30 days NS Tobacco use date assessed: 11/03/22 HPI HPI Comments History of Present Illness Details 77-year-old female past medical history significant for embolic stroke, atrial fibrillation on anticoagulation, depression, generalized anxiety disorder hyperlipidemia type 2 diabetes mellitus, basic carcinoma right breast. Patient of Don Salcedo, presents today for an ER follow-up. Patient presented to [facility] ER on 11/11/2022 for intermittent chest pain, troponin negative, EKG:Atrial fibrillation Incomplete right bundle branch block ST & T wave abnormality, consider anterior ischemia Abnormal ECG When compared with ECG of 11-NOV-2022 10:30, No significant change was found Chest x-ray:IMPRESSION: Mild cardiomegaly as well as linear markings in the lower lung pressley, left greater than right represent interval increase in the previous study suggestive of atelectasis and/or scarring. Very small pleural effusions cannot be excluded. Patient denies CP, palpitations sob and syncope. PAtient states poor appetite for little over a week. Patient states thought it was related to her letrozole pill. Follows with [facility] in [place] aware she stopped her letrozole pill. Patient reports diarrhea x 1 week, denies fever blood in stool. As well as increased muscle pain in her legs, Patient reports this has happened seen her atorvastatin was increased to 40mg daily. LDL 73. 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 [facility] Medical History Asthma Depression DMII (diabetes mellitus, type 2) HAYLIE (generalized anxiety disorder) Hemiparesis of left side of face HLD (hyperlipidemia) HTN (hypertension) Invasive ductal carcinoma of breast, stage 3 Near syncope Surgical History History of bladder surgery History of breast biopsy History of colonoscopy History of lumpectomy of right breast History of tubal ligation Hx of total mastectomy of right breast Family History Father No problems noted. Mother No problems noted. Social History Household Members: Family Housing: House Alcohol intake: never Patient Tobacco Use Status: Former Tobacco user Quit Date: 12 years ago e-Cigarette/Vaping Use: Never Used Second Hand Smoke Exposure: Yes service: No Current occupational status: disabled Cognitive needs: No Hearing needs: No Vision needs: Yes (glasses) Female Reproductive History Menstrual Age of Menarche: 16 Questionnaire PHQ-9 Over the last 2 weeks, how often have you been bothered by any of the following problems? 1. Little interest or pleasure in doing things: not at all 2. Feeling down, depressed, or hopeless: several days 3. Trouble falling or staying asleep, or sleeping too much: several days 4. Feeling tired or having little energy: nearly every day 5. Poor appetite or overeating: nearly every day 6. Feeling bad about yourself - or that you are a failure or have let yourself or your family down: nearly every day 7. Trouble concentrating on things, such as reading the newspaper or watching television: not at all 8. Moving or speaking so slowly that other people could have noticed. Or the opposite - being so fidgety or restless that you have been moving around a lot more than usual: not at all 9. Thoughts that you would be better off or of hurting yourself in some way: not at all Total score: 11 Depression Screening Interpretation: Negative 82532 - PHQ-9 Billing: Yes Source: Developed by Drs. David Louis, Jo [place], Mason Zafar and colleagues, with an educational fletcher from [email or web address]. Thrive Questionnaire Date Thrive assessed: 11/03/22 I am a: Patient What is your living situation today?: I have a steady place to live Within the past 12 months, did the food you bought not last and you didn't have the money to get more?: Never true Within the past 12 months, did you worry whether your food would run out before you got money to buy more?: Never true Do you have trouble paying for medicines?: No Do you have trouble getting transportation to medical appointments?: No Do you have trouble paying your heating and electricity bill?: No Do you have trouble taking care of your child, family member or friend?: No Do you have trouble with day-to-day activities such as bathing, preparing meals, shopping, managing finances, etc.?: No Are you currently unemployed and looking for a job?: No Are you interested in more education?: No Please select the resources that you would like help with: None Currently or been in a relationship where the following occur: no concerns reported AUDIT C Alcohol Use Questionnaire (AUDIT-C) 1. How often do you have a drink containing alcohol?: Never 3. How often do you have six or more drinks on one occasion?: Never Total Score: 0 HAYLIE-7 AMB Questionnaire HAYLIE-7 Date HAYLIE - 7 assessed: 11/03/22 Feeling nervous, anxious, or on edge: 1 = Several days Not being able to stop or control worryin = More than half the days Worrying too much about different things: 2 = More than half the days Trouble relaxin = Several days Being so restless that it is hard to sit still: 0 = Not at all Becoming easily annoyed or irritable: 1 = Several days Feeling afraid as if something awful might happen: 3 = Nearly every day Total HAYLIE-7 score (0-4 normal; 5-9 mild; 10-14 moderate; 15-21 severe): 10 Source: Developed by Drs. David Louis, Jo [place], Mason Zafar and colleagues, with an educational fletcher from [employer]. HAYLIE-7 Assessment Billing HAYLIE-7 Assessment Tool: HAYLIE-7 Assessment 64790 Review of Systems Const Denies chills, Denies fatigue, Denies fever(s) and Denies poor appetite Eyes Denies no additional complaints ENT Reports Normal hearing present Card Denies chest pain, Denies syncope, Denies rapid heart rate and Denies dyspnea Resp Denies cough and Denies dyspnea GI Denies change in stool character, Denies constipation, Denies diarrhea, Denies nausea and Denies vomiting Denies urinary frequency, Denies dysuria and Denies urinary urgency Neuro Reports Normal hearing present, Denies confusion and Denies syncope Psych Denies confusion Endo Denies fatigue Physical exam (Primary Care) Vital Signs: Last Vital Signs Pulse 95 11/21/22 14:09 BP 118/82 11/21/22 14:09 Pulse Ox 96 11/21/22 14:09 Oxygen Delivery Method Room Air 11/21/22 14:09 BMI result Body Mass Index 33.5 Tobacco/Smoking Status: Tobacco use Status Tobacco use date assessed 11/03/22 11/21/22 14:19 Patient Tobacco Use Status Former Tobacco user 11/21/22 14:19 e-Cigarette/Vaping Use Never Used 11/21/22 14:19 PHQ-9: PHQ-9 Score PHQ-9: Total score 11 11/21/22 14:33 Depression Screening Interpretation: Negative Thrive Assessment: Date of Thrive Assessment Date Thrive assessed 11/03/22 11/21/22 14:19 Currently or been in a relationship where the following occur: no concerns reported Const General: No confusion Orientation/consciousness: No confusion HENMT Head: Yes normocephalic and Yes atraumatic Eyes Conjunctivae: conjunctivae normal Chest Chest palpation & inspection: normal inspection of the chest Resp Effort & Inspection: normal respiratory effort Auscultation: clear to auscultation bilaterally, no crackles, no rhonchi and no wheezes Cardio Rate: regular rate Rhythm: regular rhythm Heart sounds: S1 normal heart sound present and S2 normal heart sound present GI Inspection: Yes normal to inspection Neuro General: No confusion Cranial nerves: Yes Normal hearing present Extrem General: No edema Assessment and Plan Assessment & Plan (1) Atrial flutter: Code(s): I48.92 - Unspecified atrial flutter Plan: Continue on metoprolol 12.5 mg b.i.d. for rate control and Eliquis for anticoagulation. Continue to follow with Cardiology. (2) HLD (hyperlipidemia): Code(s): E78.5 - Hyperlipidemia, unspecified Qualifiers: Hyperlipidemia type: mixed hyperlipidemia Qualified Code(s): E78.2 - Mixed hyperlipidemia Plan: Given patient is having new symptoms of increased muscle pain in her legs and diarrhea since recent increase in atorvastatin to 40 mg daily, will decrease her back to previous tolerated dose of 20 mg daily. LDL goal 70 Avoid fried foods, chicken skin, eggs, butter,margarine, pastries and? red meat. (3) DMII (diabetes mellitus, type 2): Code(s): E11.9 - Type 2 diabetes mellitus without complications Qualifiers: Diabetes mellitus complication status: without complication Diabetes mellitus terminal superintendent insulin use: without terminal superintendent use Qualified Code(s): E11.9 - Type 2 diabetes mellitus without complications Plan: Continue on metformin 500 mg b.i.d. Patient educated to decrease the amount of carbohydrate intake such as pasta, bread, rice and potatoes are all sugar in addition to the sweet stuff. Remember that fruits are good but they also have sugar. (4) HTN (hypertension): Code(s): I10 - Essential (primary) hypertension Qualifiers: Hypertension type: essential hypertension Qualified Code(s): I10 - Essential (primary) hypertension Plan: Continue on losartan 100 mg daily. Follow low-salt diet and exercise. (5) Diarrhea: Code(s): R19.7 - Diarrhea, unspecified Plan: Stool studies, C diff ordered. (6) Embolic stroke: Code(s): I63.9 - Cerebral infarction, unspecified Plan: Referral entered to Neurology. Plan Keep scheduled follow-up with PCP or follow-up sooner if needed. Orders: Orders Comprehensive [place]. Panel Fast 11/21/22 R19.7 - Diarrhea, unspecified C Reactive Protein 11/21/22 R19.7 - Diarrhea, unspecified TSH reflex Free T4 11/21/22 Z13.29 - Encounter for screening for other suspected endocrine disorder Complete Blood Count Auto Diff 11/21/22 Z13.0 - Encounter for screening for diseases of the blood and blood-forming organs and certain disorders involving the immune mechanism Erythrocyte Sedimentation Rate 11/21/22 R19.7 - Diarrhea, unspecified CDiff Gene PCR 11/21/22 R19.7 - Diarrhea, unspecified Giardia Ag Stool EIA 11/21/22 R19.7 - Diarrhea, unspecified Ova and Parasite 11/21/22 R1.7 - Diarrhea, unspecified Leukocytes Stool Qualitative 11/21/22 R1.7 - Diarrhea, unspecified Referrals Neurology Referral I63.9 - Cerebral infarction, unspecified Medications: New atorvastatin 20 mg PO DAILY 30 tabs 3RF E78.5 - Hyperlipidemia, unspecified Discontinued atorvastatin Discontinued Reason: Doctor's Order 40 mg PO DAILY 30 tabs 3RF Coding Level of Care Code Est Pt Level 4 (01275) Diagnoses Atrial flutter I48.92 HLD (hyperlipidemia) E78.2 Hyperlipidemia type: mixed hyperlipidemia DMII (diabetes mellitus, type 2) E11.9 Diabetes mellitus complication status: without complication Diabetes mellitus terminal superintendent insulin use: without terminal superintendent use HTN (hypertension) I10 Hypertension type: essential hypertension Diarrhea R19.7 Embolic stroke I63.9 Additional Codes HAYLIE-7 Assessment Billing - HAYLIE-7 Assessment Tool: HAYLIE-7 Assessment [id number] ([id number])
== END 2022-11-21 14:57 | disposition home or self-care (01) ==
PROVIDERS: PCP Physician Assistant; Visit Provider Nurse Practitioner Family
DX: I48.92 Unspecified atrial flutter (principal); E11.9 Type 2 diabetes mellitus without complications; I10 Essential (primary) hypertension; E78.2 Mixed hyperlipidemia; I63.9 Cerebral infarction, unspecified; R19.7 Diarrhea, unspecified
CPT/HCPCS: 99214

== ENCOUNTER → 2022-11-25 08:35 | Outpatient (REF) | payer MEDICARE, MEDICAID, SELFPAY ==
--- NOTE | ~2022-11-25 | NM_ITS ---
Myocardial perfusion study Indication: Atrial fibrillation to evaluate for myocardial ischemia Technique: The patient was brought in for a Lexiscan perfusion study on 11/25/2022. Patient performed low-level exercise and was injected 0.4 mg of Lexiscan intravenously. Within a minute of injection, 30 mCi of sestamibi was given intravenously. Images were obtained using the SPECT gamma camera interlaced with the gating device. Images were obtained in supine position. Resting perfusion study was performed on 11/28/2022. Patient was administered 30 mCi of sestamibi intravenously at rest. Images were then obtained in supine position. Images were obtained with and without CT attenuation. Total DLP 106 mGy-cm. Images were processed with the software and compared side to side in short axis, horizontal long axis and vertical long axis views. Findings: The stress perfusion study showed both attenuated as well as non attenuated corrected images show normal uptake of radiotracer in all segments of LV myocardium. The gated study shows normal LV systolic function with calculated LVEF of 71%. LV cavity is normal in size. The gated study shows normal systolic wall thickening and contraction of segments. Resting study shows no change in perfusion pattern stress perfusion study. Gating at rest reveals normal systolic wall motion with ejection fraction at greater than 60%. The findings are consistent with normal myocardial perfusion. NM/NM cardiolite stress test Impression: 1. Myocardial perfusion imaging study shows normal myocardial perfusion 2. Gated LVEF is 71% 3. Transient ischemic dilatation not present EKG is nondiagnostic for ischemia
--- NOTE | 2022-11-25 08:37 | CA_ITS ---
Acquisition Time: 2022-11-25 08:48:24 Total Exercise Time: 00:02:00 Test Indications: NEW ONSET ATRIAL FIB Medications: SEE MED SHEET Protocol: LEXISCAN Max HR: 127 BPM 87% of Pred: 145 BPM Max BP: 154/088 mmHG Max Work Load: 1.0 METS Pharmacolgoical stress test with lexiscan injection while sitting, without a change in 5/10 shartp mid chest pain, without arrhythmias, with normotensive response to injection, with nondiagonsitic EKGs. Nuclear images pending. Aminophylline 75mg IVP given to reverse Lexiscan. Test reviewed with Dr. Maxwell. Referred By: Karyna Gagnon Overread By: ADOLFO MAXWELL MD
== END ==
LOC: HO.CARD 08:35
PROVIDERS: Visit Provider Nurse Practitioner Family
DX: I48.91 Unspecified atrial fibrillation (principal)
CPT/HCPCS: 78452; 93017; A9500; J0280; J2785

== ENCOUNTER → 2022-11-25 08:37 | Outpatient (BNV) | payer MEDICARE, MEDICAID, SELFPAY | PROVIDERS: Visit Provider Internal Medicine Cardiovascular Disease | DX: I48.91 Unspecified atrial fibrillation (principal) | CPT/HCPCS: 78452; 93016; 93018 ==

== ENCOUNTER 2022-12-13 12:46 | Outpatient (AMB) | payer MEDICARE, MEDICAID, SELFPAY ==
--- NOTE | 2022-12-13 12:47 | MHC.PC.OV ---
Vital Signs 12/13/22 12:48 Height 5 ft 3 in Weight 182 lb 6 oz BMI 32.3 BP 140/78 H Blood Pressure Location Lt brachial Position Sitting Pulse 79 Pulse Source Pulse Oximeter Pulse Oximetry (%) 96 Oxygen Delivery Method Room Air Intake Visit Reasons: HDF ~ Post hospital discharge FU Intake Note: Patient is here for hospital discharge follow up. Patient was discharged from [facility]) on 12/04/22. Quad Stayer Required: No Mining Manager: Not Required per policy Accompanied by: Self / Same As Patient Allergies Penicillins [PENICILLINS] Allergy (Intermediate, Verified 12/13/22 13:12) RASH pravastatin Allergy (Unknown, Verified 12/13/22 13:12) Unknown Medication List - Last Reconciled 12/13/22 by Efraín Salcedo PA-C acetaminophen ER (Arthritis Pain Relief (acetaminophen) ER) 1,300 mg (2 x 650 mg) PO Q8H PRN atorvastatin 20 mg PO DAILY blood sugar diagnostic (FreeStyle Lite Strips) As directed blood-glucose meter (FreeStyle Lite Meter kit) As directed calcium carbonate (Oyster Shell Calcium) 500 mg PO BID 30 days cholecalciferol (vitamin D3) 50 mcg PO DAILY 90 days compr.stocking,knee,long,large Need for 10-15 mmHg impression diaper,brief,adult,disposable (Briefs, Adult-Extra Large) Need for XL adult briefs fluoxetine 20 mg PO DAILY 30 days fluticasone propionate 50 mcg/actuation 1 spray intranasal DAILY 30 days incontinence pad, liner, disp (Pant Liners, Large Plus pads) As directed lancets (FreeStyle Lancets) As directed loratadine 10 mg PO DAILY 90 days losartan 100 mg PO DAILY 30 days metformin ER 500 mg PO BID 90 days metoprolol tartrate 25 mg PO BID miscellaneous medical supply 1 ea miscellaneous DAILY 99 days multivitamin 1 tab PO DAILY oxybutynin chloride ER 15 mg PO DAILY 30 days pantoprazole 40 mg PO DAILY Ventolin HFA 90 mcg/actuation (albuterol sulfate) 2 puffs PO Q6H PRN 30 days NS Tobacco use date assessed: 12/13/22 HPI HDF ~ Post hospital discharge FU HPI Details Patient is 77-year-old female here today for hospital discharge follow-up. Patient's past medical history significant for type 2 diabetes, recent perietal lobe CVA, hyperlipidemia, hypertension, recent history of breast cancer and history of AFIB on Eliquis. She presented to [facility] on November 29 with multiple complaints including abdominal pain, poor appetite and chest pain. She was found to have a moderate to large pericardial effusion without evidence of tamponade. She was referred to a tertiary hospital for a pericardiocentesis. A drain had been placed though only minimal drainage. Her Eliquis has been held until cardiology re-evaluation and echocardiogram. Has multiple complaints today , report low appetitie , feet swelling , right ear congestion, feeling somewhat fatigued. Of note her metoprolol was increased to 25 mg b.i.d.. Also reports her urinary incontinence and spastic bladder has gotten somewhat worse. She is willing to increase her oxybutynin dose to 15mg. [facility] Medical History Asthma Depression DMII (diabetes mellitus, type 2) HAYLIE (generalized anxiety disorder) Hemiparesis of left side of face HLD (hyperlipidemia) HTN (hypertension) Invasive ductal carcinoma of breast, stage 3 Near syncope Surgical History History of colonoscopy Hx of total mastectomy of right breast History of lumpectomy of right breast History of breast biopsy History of tubal ligation History of bladder surgery Family History Father No problems noted. Mother No problems noted. Social History Household Members: Family Housing: House Alcohol intake: never Patient Tobacco Use Status: Former Tobacco user Quit Date: 12 years ago e-Cigarette/Vaping Use: Never Used Second Hand Smoke Exposure: Yes service: No Current occupational status: disabled Cognitive needs: No Hearing needs: No Vision needs: Yes (glasses) Female Reproductive History Menstrual Age of Menarche: 16 Questionnaire Thrive Questionnaire Date Thrive assessed: 11/03/22 HAYLIE-7 AMB Questionnaire HAYLIE-7 Date HAYLIE - 7 assessed: 11/03/22 Source: Developed by Drs. David Louis, Jo Jenkins, Mason Zafar and colleagues, with an educational fletcher from [employer]. Review of Systems Const Denies headache(s) Eyes Denies loss of vision ENT Denies vertigo, Denies dizziness, Denies headache(s) and Denies sore throat Card Denies chest pain, Denies leg edema and Denies lightheadedness Resp Denies cough, Denies hemoptysis and Denies wheezing GI Denies abdominal pain, Denies melena, Denies constipation, Denies diarrhea and Denies vomiting Denies urinary frequency, Denies dysuria and Denies urinary urgency Musc Denies arthralgias, Denies joint swelling, Denies numbness and Denies tingling Neuro Denies Abnormal speech present, Denies behavioral changes, Denies vertigo, Denies dizziness, Denies headache(s), Denies loss of vision, Denies memory loss, Denies numbness and Denies tingling Psych Denies anxiety, Denies behavioral changes, Denies depression, Denies memory loss and Denies panic attacks Oral/Lymph Denies easy bleeding and Denies easy bruising Aller/Immun Denies wheezing Physical exam (Primary Care) Vital Signs: Last Vital Signs Pulse 79 12/13/22 12:48 BP 140/78 H 12/13/22 12:48 Pulse Ox 96 12/13/22 12:48 Oxygen Delivery Method Room Air 12/13/22 12:48 BMI result Body Mass Index 32.3 Tobacco/Smoking Status: Tobacco use Status Tobacco use date assessed 12/13/22 12/13/22 12:57 Patient Tobacco Use Status Former Tobacco user 12/13/22 12:57 e-Cigarette/Vaping Use Never Used 12/13/22 12:57 Thrive Assessment: Date of Thrive Assessment Date Thrive assessed 11/03/22 12/13/22 12:57 Const General: healthy appearing, no acute distress, alert and awake Nutritional Appearance: well nourished Orientation/consciousness: oriented to person, oriented to place and oriented to time HENMT Ears: TM's normal bilaterally General nose exam: Normal nasal mucous membranes and turbinates present Eyes Conjunctivae: conjunctivae normal Sclerae: sclerae normal Pupils: Equal, round and reactive pupils present Neck Neck: Yes no lymphadenopathy and Yes no JVD Thyroid: Thyroid normal Carotids: no bruits Resp Effort & Inspection: normal respiratory effort and not tachypneic Auscultation: no crackles, no rales, no rhonchi and no wheezes Cardio Rate: regular rate Rhythm: regular rhythm Heart sounds: no murmurs and normal S1 and S2 GI Palpation (GI): Soft to palpation, nontender, no hepatomegaly and no splenomegaly Auscultation: normal bowel sounds Skin General skin exam: no rashes or lesions noted and dry skin Neuro General: oriented to person, oriented to place and oriented to time Cranial nerves: Yes Equal, round and reactive pupils present Speech: No Abnormal speech present Gait exam (Neuro): Normal gait present Motor exam (neuro): no tremor noted Extrem Right upper extremity: full ROM Left upper extremity: full ROM Right lower extremity: full ROM; no edema Left lower extremity: full ROM; no edema Psych Mental Status: mental status grossly normal Speech and movement: Normal speech and movement present Affect: normal affect Attitude: cooperative Thought process: Normal thought process present Assessment and Plan Assessment & Plan (1) Pericardial effusion: Code(s): I31.39 - Other pericardial effusion (noninflammatory) Plan: As per HPI patient was found to have a pericardial effusion and underwent a paracentesis at a [facility]. At this time do not have results of the pericardial fluid though was told by her oncologist that there was no concerns for cancer. At this time unclear etiology to patient's pericardial effusion though seems to have started after she was started on Eliquis. (2) Atrial fibrillation: Code(s): I48.91 - Unspecified atrial fibrillation Qualifiers: Atrial fibrillation type: permanent Qualified Code(s): I48.21 - Permanent atrial fibrillation Plan: Clinically continues to be in AFib though without any rapid rate. Currently Eliquis being hold due to her recent pericardial effusion with paracentesis. Will follow-up with cardiology to be advised on restarting anticoagulation. She does report some fatigue which is likely related to increase dose of her beta-jhonny. At this time advised to continue the Toprol 25 b.i.d.. Will likely need reduce dose due to side effect in near future. (3) Spastic bladder: Code(s): N32.89 - Other specified disorders of bladder Plan: Reports more urinary frequency as of late. Will supply with scripts for incontinence supplies. Will increase her oxybutynin to 15 mg daily. Did advise on pelvic floor therapy though patient would like to hold off on this for now. (4) Anemia: Code(s): D64.9 - Anemia, unspecified Qualifiers: Anemia type: other cause Other causes of anemia: chronic disease, neoplastic Qualified Code(s): D63.0 - Anemia in neoplastic disease Plan: Noted to have anemia on most recent hospitalizations. Likely secondary to her anticoagulation use. Currently Eliquis being held due to having a pericardial effusion and paracentesis. (5) Urinary incontinence: Code(s): R32 - Unspecified urinary incontinence Qualifiers: Urinary Incontinence type: urge incontinence Qualified Code(s): N39.41 - Urge incontinence Plan: Likely secondary to her spastic bladder. Will try to increase her oxybutynin dose for better control over her spastic bladder symptoms. (6) Lower extremity edema: Code(s): R60.0 - Localized edema Orders: Orders CT chest w IV con 12/13/22 I31.39 - Other pericardial effusion (noninflammatory) IRON PROFILE 12/13/22 D50.9 - Iron deficiency anemia, unspecified, D64.9 - Anemia, unspecified Complete Blood Count no Diff 12/13/22 D64.9 - Anemia, unspecified NT-proBNP 12/13/22 I31.39 - Other pericardial effusion (noninflammatory) Basic Metabolic Panel 12/13/22 I31.39 - Other pericardial effusion (noninflammatory) UA CC w/rflx Micro + Cult 12/13/22 N32.89 - Other specified disorders of bladder, R30.0 - Dysuria Medications: New oxybutynin chloride ER 15 mg PO DAILY 30 days 30 tabs 3RF N32.89 - Other specified disorders of bladder miscellaneous medical supply need for safety grab bar x 3 1 ea miscellaneous DAILY 99 days 99 ea 0RF I63.9 - Cerebral infarction, unspecified diaper,brief,adult,disposable (Briefs, Adult-Extra Large) Need for XL adult briefs 14 ea 6RF N32.89 - Other specified disorders of bladder, R32 - Unspecified urinary incontinence incontinence pad, liner, disp (Pant Liners, Large Plus pads) As directed 96 ea 6RF N32.89 - Other specified disorders of bladder compr.stocking,knee,long,large Need for 10-15 mmHg impression 2 ea 0RF R60.0 - Localized edema Changed From metoprolol tartrate 25 mg PO BID R60.0 - Localized edema To metoprolol tartrate 25 mg PO BID 30 days 60 tabs 3RF R60.0 - Localized edema Discontinued oxybutynin chloride ER Discontinued Reason: Doctor's Order 10 mg PO DAILY 30 days 30 tabs 3RF N32.89 - Other specified disorders of bladder Coding Level of Care Code Est Pt Level 4 (32827) Diagnoses Pericardial effusion I31.39 Permanent atrial fibrillation I48.21 Atrial fibrillation type: permanent Spastic bladder N32.89 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
[2022-12-13 12:48] VITALS: BP 140/78; PULSE 79; O2SAT 96; BMI 32.3
== END 2022-12-13 14:11 | disposition home or self-care (01) ==
PROVIDERS: Visit Provider Physician Assistant
DX: I31.39 Other pericardial effusion (noninflammatory) (principal); I48.21 Permanent atrial fibrillation; N32.89 Other specified disorders of bladder; D63.0 Anemia in neoplastic disease; N39.41 Urge incontinence; R60.0 Localized edema
CPT/HCPCS: 99214

== ENCOUNTER 2022-12-23 10:38 | Outpatient (REF) | payer MEDICARE, MEDICAID, SELFPAY ==
[2022-12-23 11:52] LABS: Hematocrit 37.1 % (37.0-47.0); Hemoglobin 11.8 g/dl (12.0-16.0); Mean Corpuscular HGB Conc 31.8 g/dl (31.0-35.0); Mean Corpuscular Hemoglobin 25.9 pg (27.0-33.0); Mean Corpuscular Volume 81.5 fL (80.0-98.0); Mean Platelet Volume 10.5 fL (9.4-12.3); Platelet Count 422 X10*3/uL (160-400); Red Blood Count 4.55 X10*6/uL (4.20-5.50); Red Cell Distribution Width 16.8 % (11.0-16.0); White Blood Count 7.5 X10*3/uL (4.8-10.8)
[2022-12-23 12:54] LABS: Anion Gap 16 (12-20); Blood Urea Nitrogen 6 mg/dL (9-16); Calcium 8.2 mg/dL (8.4-10.2); Carbon Dioxide 25 mmol/L (22-29); Chloride 107 mmol/L (96-108); Estimated Glomerular Filt Rate > 60; Glucose Random 109 mg/dL (60-115); Iron 27 mcg/dL (30-160); Percent Iron Saturation 11 % (15-50); Potassium 3.4 mmol/L (3.3-5.1); Sodium 145 mmol/L (135-145); Total Iron Binding Capacity 251 mcg/dL (228-428); Unsaturated Iron Binding 224 ug/dL
[2022-12-27 21:29] LABS: NT-proBNP 2241 pg/mL (<450)
== END 2022-12-23 10:39 | disposition home or self-care (01) ==
LOC: HO.LAB 10:38
PROVIDERS: PCP Physician Assistant; Visit Provider Physician Assistant
DX: D50.9 Iron deficiency anemia, unspecified (principal); I31.39 Other pericardial effusion (noninflammatory)
CPT/HCPCS: 36415; 80048; 83540; 83880; 85027

== ENCOUNTER 2022-12-24 12:38 | Outpatient (REF) | payer MEDICARE, MEDICAID, SELFPAY ==
[2022-12-24 12:48] LABS: Appearance Urine Clear; Color Urine Yellow; Glucose Urine UA Negative (Negative); Leukocyte Esterase Urine Moderate (2+) (Negative); Nitrite Urine Negative (Negative); PH 6.5 (5.0-9.0); UMIC TRIGGER UACC YES; Urine Blood Negative (Negative); Urine Ketones Negative (Negative); Urine Protein Negative (Neg-Trace)
[2022-12-24 12:51] LABS: Bacteria Urine None Seen (None Seen); Hyaline Casts Urine 0-2 /LPF (0-2); RBC Urine 0-2 /HPF (0-2); Squamous Epithelial Cell Urine 0-2 /HPF (0-2); UACC Culture Trigger YES
== END 2022-12-24 12:39 | disposition home or self-care (01) ==
LOC: HO.LNP 12:38
PROVIDERS: Visit Provider Physician Assistant
DX: R30.0 Dysuria (principal); N32.89 Other specified disorders of bladder
CPT/HCPCS: 81001; 87086

== ENCOUNTER → 2023-01-26 14:59 | Outpatient (BNV) | payer MEDICARE, MEDICAID, SELFPAY | PROVIDERS: PCP Physician Assistant; Visit Provider Internal Medicine | DX: I36.1 Nonrheumatic tricuspid (valve) insufficiency (principal); I34.0 Nonrheumatic mitral (valve) insufficiency | CPT/HCPCS: 93306 ==

== ENCOUNTER → 2023-01-26 15:00 | Outpatient (REF) | payer MEDICARE, MEDICAID, SELFPAY ==
--- NOTE | 2023-01-26 14:59 | CA_ITS ---
Transthoracic Echocardiogram Patient (Last, First, Middle): Karena Cuevas, Gender: Female Date of : 1945 Age: 77 Procedure Date: 01/26/2023 Procedure Type: Transthoracic Echocardiogram Location: OP Height: 160.02 cm Weight: 82.56 kg BSA: 1.86 m2 Heart Rate: bpm BP: 123 / 76 mmHg Iron Molder Helper: SOLO Referring MD: Karyna Gagnon WIRE WALKER-Eliel Symptoms: I07.1 - Rheumatic tricuspid insufficiency Study Quality: Adequate with contrast ECG Rhythm: Undetermined Conclusions: - The left ventricular systolic function is mildly decreased. The calculated ejection fraction is 48% by biplane method. - Moderate biatrial enlargement. - There is mild calcification of the aortic valve. - There is mild mitral annular calcification. There is mild mitral valve regurgitation. - There is mild to moderate tricuspid valve regurgitation. - Mild pulmonary hypertension is present. Findings Procedure Information Contrast agent, definity, is being given per protocol without apparent complications. Left Ventricle Normal left ventricular cavity size. There is mildly increased left ventricular wall thickness. The left ventricular systolic function is mildly decreased. The calculated ejection fraction is 48% by biplane method. There is mild global hypokinesis. Diastolic function is indeterminate on the basis of available data. Right Ventricle Mildly increased right ventricular cavity size. There is mildly decreased right ventricular systolic function. Atria Moderate biatrial enlargement. Aortic Valve There is mild calcification of the aortic valve. There is no aortic valve stenosis. There is no aortic valve regurgitation. Mitral Valve There is mild mitral annular calcification. There is mild mitral valve regurgitation. There is no mitral valve stenosis. Pulmonic Valve There is trace to mild pulmonic valve regurgitation. Tricuspid Valve There is mild to moderate tricuspid valve regurgitation. Mild pulmonary hypertension is present. Great Vessels The asc aorta is normal in size. Small plaque is seen in the sino tubular ridge. Venous The inferior vena cava is mildly dilated and collapses less than 50% with inspiration. Pericardium/Pleural There is a trivial pericardial effusion. Prior Study Comparison Changes noted compared to prior study dated: 10/07/2022. Decrease in LVEF. Measurements 2D Linear Measurements IVSd: 1.10 0.6-0.9/0.6-1.0 cm LVIDd: 4.61 3.9-5.3/4.2-5.9 cm LVIDd Index: 2.48 2.4-3.2/2.2-3.1 cm/m2 LVIDs: 3.31 2.0-3.6 cm LVPWd: 1.19 0.7-1.1 cm LA Diam: 4.30 2.7-3.8/3.0-4.0 cm LAIDs Index: 2.31 1.5-2.3 cm/m2 LV Mass: 239.76 67-162/88-224 g LV Mass Index: 128.90 43-95/49-115 g/m2 LVOT Diam: 2.00 3.0+(-)1.3 cm 2D Systolic Function EF 4C: 51.10 >55% EF 2C: 45.80 >55% EF BiP: 48.00 >55% Mitral Valve MV Pk E: 1.25 MV Decel Time: 194.00 E'Lateral: 8.03 E'Medial: 6.26 E/E' Med: 20.00 E/E' Lat: 15.60 PHT: 57.00 MVA PHT: 3.86 Decel Cowley: 6.73 Aortic Valve AoV Pk Paul: 1.36 AoV Pk Grad: 7.00 LVOT LVOT Pk Paul: 0.68 LVOT Pk Grad: 2.00 LVOT Diam: 2.00 LVOT Area: 3.14 Diastolic Function MV Pk E: 1.25 E'Medial: 6.26 E/E' Med: 20.00 E' Laterial: 8.03 E/E' Lat: 15.60 Right Ventricle TAPSE (mm): 15.20 TVS' Paul: 9.93 Tricuspid Valve TR Pk Paul: 2.96 TR Pk Grad: 35.00 RA Press: 15.00 RVSP: 50.00 Great Vessels Aorta Sinus of Valsalva: 2.99 2.0-3.[address] Ridge: 2.27 1.7-3.4 cm Ao Asc: 3.40 2.1-3.4 cm Updated in Other Vendor System with Status of Final Yair Phillips MD electronically signed on 01/28/2023 11:51:14 AM with status of Final
== END ==
LOC: HO.CARD 15:00
PROVIDERS: PCP Physician Assistant; Visit Provider Nurse Practitioner Family
DX: I07.1 Rheumatic tricuspid insufficiency (principal)
CPT/HCPCS: 93306; Q9957

== ENCOUNTER 2023-02-09 10:01 | Outpatient (AMB) | payer MEDICARE, MEDICAID, SELFPAY ==
--- NOTE | 2023-02-09 10:06 | A.OFFVIS_ITS ---
Intake Vital Signs 02/09/23 10:07 Height 5 ft 3 in Weight 179 lb 0.246 oz BMI 31.7 BP 130/82 Blood Pressure Location Lt brachial Position Sitting Pulse 81 Pulse Source Pulse Oximeter Intake Visit Reasons: follow up stress test Intake Note: f/u after testing Parts Counterperson Required: No Business Development Professional: Business Development Professional Present Accompanied by: dauther Allergies Penicillins [PENICILLINS] Allergy (Intermediate, Verified 02/09/23 10:11) RASH pravastatin Allergy (Unknown, Verified 02/09/23 10:11) Unknown Medication List - Last Reconciled 02/09/23 by SAMANTHA Figueroa acetaminophen ER (Arthritis Pain Relief (acetaminophen) ER) 1,300 mg (2 x 650 mg) PO Q8H PRN apixaban (Eliquis) 5 mg PO BID 90 days atorvastatin 20 mg PO DAILY 90 days blood sugar diagnostic (FreeStyle Lite Strips) As directed blood-glucose meter (FreeStyle Lite Meter kit) As directed calcium carbonate (Oyster Shell Calcium) 500 mg PO BID 30 days cholecalciferol (vitamin D3) 50 mcg PO DAILY 90 days compr.stocking,knee,long,large Need for 10-15 mmHg impression diaper,brief,adult,disposable (Briefs, Adult-Extra Large) Need for XL adult briefs ferrous sulfate 325 mg PO BID 30 days fluoxetine 20 mg PO DAILY 30 days fluticasone propionate 50 mcg/actuation 1 spray intranasal DAILY 30 days incontinence pad, liner, disp (Pant Liners, Large Plus pads) As directed lancets (FreeStyle Lancets) As directed loratadine 10 mg PO DAILY 90 days losartan 100 mg PO DAILY 30 days metformin ER 500 mg PO BID 90 days metoprolol tartrate 25 mg PO BID 30 days miscellaneous medical supply 1 ea miscellaneous DAILY 99 days ondansetron 8 mg PO Q12H PRN 5 days pantoprazole 40 mg PO DAILY Ventolin HFA 90 mcg/actuation (albuterol sulfate) 2 puffs PO Q6H PRN 30 days NS HPI follow up stress test HPI Details Karena is a 77-year-old medical history of hypertension, hyperlipidemia, diabetes, mild obesity who was recently admitted to [facility] after having an episode at home does concerning for near syncope with graying of vision and left-sided facial droop and aphasia, described as brief by her daughter. EMS was called and patient was evaluated and admitted with new findings of atrial fibrillation. She was evaluated by Neurology who thought she may have seizure-type event, MRI confirmed tiny left parietal infarct. On follow-up visit her her condition was stable. A few weeks later she was admitted to [facility] with moderate to large pericardial effusion requiring pericardiocentesis. She was discharged on 12/04/2022 and follow-up echocardiogram done a few weeks later showed only trace effusion. Today she reports that she has not been feeling well since her last visit. She believes the new medications are making her have abdominal discomfort, nausea, diarrhea and not sleeping well. She has been taking a multivitamin and iron supplement. Her stools are black but she does not know if it is from the iron. No chest discomfort at rest or with activity. She does have shortness of keaton ath when walking into this appointment. No PND, orthopnea or edema. No presyncope, syncope, falls. Taking meds as directed. Daughter is present. FOR[facility]LY [facility] Medical History Hemiparesis of left side of face Near syncope Depression HAYLIE (generalized anxiety disorder) Invasive ductal carcinoma of breast, stage 3 Asthma HLD (hyperlipidemia) DMII (diabetes mellitus, type 2) HTN (hypertension) Surgical History History of colonoscopy Hx of total mastectomy of right breast History of lumpectomy of right breast History of breast biopsy History of tubal ligation History of bladder surgery Family History Father No problems noted. Mother No problems noted. Social History Household Members: Family Housing: House Alcohol intake: never Patient Tobacco Use Status: Former Tobacco user Quit Date: 12 years ago e-Cigarette/Vaping Use: Never Used Second Hand Smoke Exposure: Yes service: No Current occupational status: disabled Cognitive needs: No Hearing needs: No Vision needs: Yes (glasses) Female Reproductive History Menstrual Age of Menarche: 16 Review of Systems Const Details: not sleeping well. All systems reviewed & are unremarkable except as noted in HPI and below ENT Denies dizziness Card Denies chest pain, Denies chest pain at rest, Denies chest pain with activity, Denies rapid heart rate, Denies pedal edema, Denies edema, Denies leg edema, Denies lightheadedness, Denies palpitations, Denies dyspnea, Reports dyspnea on exertion and Denies orthopnea Resp Details: shortness of breath Denies cough, Denies dyspnea and Reports dyspnea on exertion GI Details: abdominal discomfort, frequent diarrhea, nausea. Denies hematochezia and Reports change in stool character Musc Denies abnormal gait, Reports limited range of motion, Reports muscle cramps, Denies muscle weakness, Denies numbness, Denies radiating pain into limb, Denies stiffness and Denies tingling Neuro Denies abnormal gait, Denies dizziness, Denies numbness and Denies tingling Endo Denies palpitations Physical Exam Vital Signs: Last Vital Signs Pulse 81 02/09/23 10:07 BP 130/82 02/09/23 10:07 BMI result Body Mass Index 31.7 Const General: cooperative, comfortable and no acute distress Orientation/consciousness: patient oriented x3 Neck Other: JVD noted Resp Effort & Inspection: normal respiratory effort Auscultation: clear to auscultation bilaterally, crackles (each base), no rhonchi and no wheezes Cardio Jugular venous distension: no JVD Rate: regular rate Heart sounds: S1 normal heart sound present, S2 normal heart sound present and no murmurs Neuro General: patient oriented x3 Extrem General: Yes normal to inspection Psych Appearance: grossly normal Mental Status: mental status grossly normal Speech and movement: Normal speech and movement present Office Procedures EKG Details: Today, read by me, atrial fibrillation, incomplete right bundle branch block, ST and T-wave abnormality, QTC 512 milliseconds, rate 87 [id number], Complete Assessment & Plan Assessment & Plan (1) Atrial fibrillation, new onset: Code(s): I48.91 - Unspecified atrial fibrillation Plan: New finding of atrial fibrillation during hospital admission, 10/16/2022. She had a neurological type event at home that was short-lived and testing confirms a tiny left parietal infarct. No recurrent neuro logical events since that time. She had been started on Eliquis for anticoagulation. She was put on low-dose metoprolol for heart rate control. A Holter monitor done 10/21/2022 for 3 days shows atrial fibrillation throughout, average heart rate 83, heart rate range 56 to 119. Her echo done 10/07/2022 showed EF 65-70%, no regional wall motion abnormalities. Nuclear stress test done 11/28/2022 showed normal myocardial perfusion imaging, EF 71%. Today she reports that she has not been feeling well recently with shortness of breath, nausea, diarrhea, abdominal discomfort and not sleeping well. She new medication pins, lad was and metoprolol. Of the 2 metoprolol likely to give her GI symptoms. Will have her stop metoprolol and start carvedilol. Continue Eliquis without change. A limited echo was done 01/26/2023 which did show EF down to 48%, trivial effusion. She does have shortness of breath today. Will be checking labs including CMP, CBC and BNP. At present will continue to treat with rate control for AFib as she is asymptomatic, however EF remains down then may need cardioversion.. All the above reviewed with her. Cardiology follow-up in 4 weeks to go over test results and re-evaluate for symptoms. (2) Near syncope: Code(s): R55 - Syncope and collapse Plan: Evaluated by Neurology. Suspected possible seizure type active however daughter tells me that the EEG came out normal. I am not seeing the results in our system for review. She did have a brain MRI on 10/18/2022 showing a tiny acute white matter infarct involving the left parietal lobe and chronic small vessel ischemic changes within the periventricular white matter. She underwent a carotid ultrasound on 10/17/2022 showing right and left ICA carotid stenosis 0- 49%. Patient states she was told she did not need to have neurology follow-up as outpatient (3) Hospital discharge follow-up: Code(s): Z09 - Encounter for follow-up examination after completed treatment for conditions other than malignant neoplasm (4) Pericardial effusion: Code(s): I31.39 - Other pericardial effusion (noninflammatory) Plan: In November had pericardial effusion moderate to large requiring pericardiocentesis at [facility]. Records have been scanned into our chart. She tells me that she was on a medication to help prevent cancer recurrence. That medication led to her pericardial effusion and has since been discontinued. Last echo shows only trivial effusion. (5) Shortness of breath: Code(s): R06.02 - Shortness of breath Plan: Newer shortness of breath with activity. Also has fine rales in each base and JVD on examination. JVD appearance could be related to her tricuspid regurgitation. Last known echo as above with EF 48%. Previously known to have normal EF. Labs pending. May need to start diuretic therapy. Changing metoprolol to carvedilol as above. She is already on losartan. signs and symptoms of heart failure reviewed with her. Has not had Congestive heart failure in the past Orders: Orders Complete Blood Count Auto Diff Today R06.02 - Shortness of breath Comprehensive Met. Panel Today R06.02 - Shortness of breath B Type Natriuretic Peptide Today R06.02 - Shortness of breath Medications: New carvedilol must administer with a meal/food 3.125 mg PO BID 30 days 60 tabs 2RF Discontinued metoprolol tartrate Discontinued Reason: Doctor's Order 25 mg PO BID 30 days 60 tabs 3RF R60.0 - Localized edema Coding Level of Care Code Est Pt Level 4 (87805) Diagnoses Atrial fibrillation, new onset I48.91 Near syncope R55 Hospital discharge follow-up Z09 Pericardial effusion I31.39 Shortness of breath R06.02 CPT Codes EKG - CPT: 71868-[id number], Complete ([id number]) Time Spent (min) 30
[2023-02-09 10:07] VITALS: BP 130/82; PULSE 81; BMI 31.7
== END 2023-02-09 11:06 | disposition home or self-care (01) ==
PROVIDERS: PCP Physician Assistant; Visit Provider Nurse Practitioner Family
DX: I48.91 Unspecified atrial fibrillation (principal); R55 Syncope and collapse; Z09 Encounter for follow-up examination after completed treatment for conditions other than malignant neoplasm; I31.39 Other pericardial effusion (noninflammatory); R06.02 Shortness of breath
CPT/HCPCS: 93010; 99214

== ENCOUNTER 2023-02-09 10:01 | Outpatient (REF) | payer MEDICARE, MEDICAID, SELFPAY ==
[2023-02-09 11:24] LABS: MANUAL DIFF FLAG NO
[2023-02-09 11:45] LABS: Basophils Absolute Auto 0.1 X10*3/uL (0.0-0.2); Basophils Percent Auto 1.2 % (0-2); Eosinophils Absolute Auto 0.1 X10*3/uL (0.0-0.4); Eosinophils Percent Auto 0.6 % (0-4); Hematocrit 38.3 % (37.0-47.0); Hemoglobin 12.3 g/dl (12.0-16.0); Imm Gran Abs Auto 0.03 X10*3/uL (0.00-0.03); Imm Gran Pct Auto 0.4 % (0.0-0.4); Lymphocytes Absolute Auto 1.8 X10*3/uL (1.2-4.9); Lymphocytes Percent Auto 23.8 % (20-40); Mean Corpuscular HGB Conc 32.1 g/dl (31.0-35.0); Mean Corpuscular Hemoglobin 26.3 pg (27.0-33.0); Mean Platelet Volume 9.9 fL (9.4-12.3); Monocytes Absolute Auto 0.6 X10*3/uL (0.1-1.2); Monocytes Percent Auto 8.3 % (2-11); Neutrophils Absolute Auto 5.1 x10*3/uL (2.0-8.3); Neutrophils Percent Auto 65.7 % (45-73); Platelet Count 491 X10*3/uL (160-400); Red Blood Count 4.67 X10*6/uL (4.20-5.50); Red Cell Distribution Width 18.4 % (11.0-16.0); White Blood Count 7.7 X10*3/uL (4.8-10.8)
[2023-02-09 12:26] LABS: B Type Natriuretic Peptide 2181 pg/mL (<100)
[2023-02-09 12:30] LABS: Alanine Aminotransferase 20 U/L (0-31); Albumin Level 3.8 g/dL (3.5-5.0); Alkaline Phosphatase 91 U/L (39-117); Anion Gap 16 (12-20); Aspartate Amino Transferase 31 U/L (5-31); Bilirubin Total 1.2 mg/dL (0.0-1.0); Blood Urea Nitrogen 10 mg/dL (9-16); Calcium 8.4 mg/dL (8.4-10.2); Carbon Dioxide 27 mmol/L (22-29); Chloride 107 mmol/L (96-108); Estimated Glomerular Filt Rate > 60; Glucose Random 98 mg/dL (60-115); Potassium 3.6 mmol/L (3.3-5.1); Sodium 146 mmol/L (135-145); Total Protein 7.2 g/dL (6.5-8.0)
== END 2023-02-09 10:02 | disposition home or self-care (01) ==
LOC: HO.LAB 10:01
PROVIDERS: PCP Nurse Practitioner Family; Visit Provider Nurse Practitioner Family
DX: I10 Essential (primary) hypertension (principal); I48.91 Unspecified atrial fibrillation; I31.39 Other pericardial effusion (noninflammatory); E78.5 Hyperlipidemia, unspecified; E11.9 Type 2 diabetes mellitus without complications; E66.9 Obesity, unspecified; R55 Syncope and collapse; R06.02 Shortness of breath; Z09 Encounter for follow-up examination after completed treatment for conditions other than malignant neoplasm; Z79.899 Other long term (current) drug therapy
CPT/HCPCS: 36415; 80053; 83880; 85025; 93005; 99212

== ENCOUNTER 2023-03-09 15:14 | Outpatient (AMB) | payer MEDICARE, MEDICAID, SELFPAY ==
--- NOTE | 2023-03-09 15:26 | A.OFFVIS_ITS ---
Intake Vital Signs 03/09/23 15:27 Height 5 ft 3 in Weight 181 lb 3.52 oz BMI 32.1 BP 120/72 Blood Pressure Location Rt brachial Position Sitting Intake Visit Reasons: 4 wk fu labs Stuntman Required: No Patient Access Representative: Patient Access Representative Present Accompanied by: Daughter Allergies Penicillins [PENICILLINS] Allergy (Intermediate, Verified 03/09/23 15:31) RASH pravastatin Allergy (Unknown, Verified 03/09/23 15:31) Unknown Medication List - Last Reconciled 03/09/23 by SAMANTHA Figueroa acetaminophen ER (Arthritis Pain Relief (acetaminophen) ER) 1,300 mg (2 x 650 mg) PO Q8H PRN apixaban (Eliquis) 5 mg PO BID 90 days atorvastatin 20 mg PO DAILY 90 days blood sugar diagnostic (FreeStyle Lite Strips) As directed blood-glucose meter (FreeStyle Lite Meter kit) As directed calcium carbonate (Oyster Shell Calcium) 500 mg PO BID 30 days carvedilol 3.125 mg PO BID 30 days cholecalciferol (vitamin D3) 50 mcg PO DAILY 90 days compr.stocking,knee,long,large Need for 10-15 mmHg impression diaper,brief,adult,disposable (Briefs, Adult-Extra Large) Need for XL adult briefs ferrous sulfate 325 mg PO BID 30 days fluoxetine 20 mg PO DAILY 30 days fluticasone propionate 50 mcg/actuation 1 spray intranasal DAILY 30 days furosemide (Lasix) 20 mg PO DAILY PRN hydroxyzine HCl 25 mg PO BEDTIME PRN incontinence pad, liner, disp (Pant Liners, Large Plus pads) As directed lancets (FreeStyle Lancets) As directed loratadine 10 mg PO DAILY 90 days losartan 100 mg PO DAILY 30 days metformin ER 500 mg PO BID 90 days miscellaneous medical supply 1 ea miscellaneous DAILY 99 days ondansetron 8 mg PO Q12H PRN 5 days pantoprazole 40 mg PO DAILY Ventolin HFA 90 mcg/actuation (albuterol sulfate) 2 puffs PO Q6H PRN 30 days NS HPI 4 wk fu labs HPI Details Karena is a 77-year-old medical history of hypertension, hyperlipidemia, diabetes, mild obesity who was admitted to [facility] October 2022 after having an episode at home does concerning for near syncope with graying of vision and left-sided facial droop and aphasia, described as brief by her daughter. EMS was called and patient was evaluated and admitted with new findings of atrial fibrillation. She was evaluated by Neurology who thought she may have seizure-type event then MRI confirmed tiny left parietal infarct. On follow-up visit her her condition was stable. A few weeks later she was admitted to [facility] with moderate to large pericardial effusion requi ring pericardiocentesis, possibly related to a chemotherapy medication. She was discharged on 12/04/2022 and follow-up echocardiogram done a few weeks later showed only trace effusion. On last visit she reported intolerance to metoprolol with GI side effects. She was then changed to carvedilol. Today she reports she has been feeling well overall. She no longer has GI side effects. She is tolerating carvedilol well. She denies shortness of breath with activity however is mostly sedentary. No chest discomfort at rest or with activity. No palpitations, presyncope, syncope, falls. No PND, orthopnea or edema. Her daughter is present and assisting with Tristanian translation at their request. Permit signed. FORMERLY [facility] Medical History Hemiparesis of left side of face Near syncope Depression HAYLIE (generalized anxiety disorder) Invasive ductal carcinoma of breast, stage 3 Asthma HLD (hyperlipidemia) DMII (diabetes mellitus, type 2) HTN (hypertension) Surgical History History of colonoscopy Hx of total mastectomy of right breast History of lumpectomy of right breast History of breast biopsy History of tubal ligation History of bladder surgery Family History Father No problems noted. Mother No problems noted. Social History Household Members: Family Housing: House Alcohol intake: never Patient Tobacco Use Status: Former Tobacco user Quit Date: 12 years ago e-Cigarette/Vaping Use: Never Used Second Hand Smoke Exposure: Yes service: No Current occupational status: disabled Cognitive needs: No Hearing needs: No Vision needs: Yes (glasses) Female Reproductive History Menstrual Age of Menarche: 16 Review of Systems Const All systems reviewed & are unremarkable except as noted in HPI and below ENT Denies dizziness Card Denies chest pain, Denies chest pain at rest, Denies chest pain with activity, Denies rapid heart rate, Denies pedal edema, Denies edema, Denies leg edema, Denies lightheadedness, Denies palpitations, Denies dyspnea, Denies dyspnea on exertion and Denies orthopnea Resp Denies cough, Denies dyspnea and Denies dyspnea on exertion GI Denies hematochezia and Denies change in stool character Musc Denies abnormal gait, Denies limited range of motion, Denies muscle cramps, Denies muscle weakness, Denies numbness, Denies radiating pain into limb, Denies stiffness and Denies tingling Neuro Denies abnormal gait, Denies dizziness, Denies numbness and Denies tingling Endo Denies palpitations Physical Exam Vital Signs: Last Vital Signs BP 120/72 03/09/23 15:27 BMI result Body Mass Index 32.1 Const General: cooperative, comfortable and no acute distress Orientation/consciousness: patient oriented x3 Neck Neck: Yes no JVD Resp Effort & Inspection: normal respiratory effort Auscultation: clear to auscultation bilaterally, no crackles, no rhonchi and no wheezes Cardio Jugular venous distension: no JVD Rate: tachycardic Rhythm: abnormal rhythm Heart sounds: S1 normal heart sound present, S2 normal heart sound present and no murmurs Neuro General: patient oriented x3 Extrem General: Yes normal to inspection Psych Appearance: grossly normal Mental Status: mental status grossly normal Speech and movement: Normal speech and movement present Office Procedures EKG Details: Today read by me, atrial fibrillation with rapid ventricular response, incomplete right bundle branch block, nonspecific T-wave abnormality, rate 114 QTC falsely prolonged due to wide QRS [id number], Complete Assessment & Plan Assessment & Plan (1) Atrial fibrillation, new onset: Code(s): I48.91 - Unspecified atrial fibrillation Plan: New finding of atrial fibrillation during hospital admission, 10/16/2022. She had a neurological type event at home that was short-lived and testing confirms a tiny left parietal infarct. No recurrent neuro logical events since that time. She had been started on Eliquis for anticoagulation. She was put on low-dose metoprolol for heart rate control. A Holter monitor done 10/21/2022 for 3 days shows atrial fibrillation throughout, average heart rate 83, heart rate range 56 to 119. Her echo done 10/07/2022 showed EF 65-70%, no regional wall motion abnormalities. Nuclear stress test done 11/28/2022 showed normal myocardial perfusion imaging, EF 71%. On last visit she was reporting shortness of breath and GI side effects and felt it was from the metoprolol. Labs showed elevated BNP, 2181. She was started on low-dose Lasix. Her metoprolol was then changed to carvedilol for heart rate control. Today she reports feeling well with no concerning symptoms. Her breathing has improved since last visit. She does not appear fluid overloaded on exam. EKG done today showing atrial fibrillation, incomplete right bundle branch block, rate 114. Last echocardiogram done 01/26/2023 showed EF 48%, moderate biatrial enlargement. Discussed case with Dr. Maxwell. With reduction in EF, heart failure, will plan for rhythm control rather than rate control. Will start on amiodarone loading dose, 400 mg b.i.d. for 2 weeks then 200 mg daily. Office EKG in 1 week. Plan for cardioversion once she is fully loaded with amiodarone. Instructed on strict compliance with Eliquis. She tells me she has not missed any doses since it start. No bleeding issues reported. Cardioversion procedure reviewed with her in detail and she is agreeable to proceed. Cardiology the office visit 2 weeks post cardioversion. (2) Near syncope: Code(s): R55 - Syncope and collapse Plan: Evaluated by Neurology. Suspected possible seizure type active however daughter tells me that the EEG came out normal. I am not seeing the results in our system for review. She did have a brain MRI on 10/18/2022 showing a tiny acute white matter infarct involving the left parietal lobe and chronic small vessel ischemic changes within the periventricular white matter. She underwent a carotid ultrasound on 10/17/2022 showing right and left ICA carotid stenosis 0- 49%. Patient states she was told she did not need to have neurology follow-up as outpatient (3) Pericardial effusion: Code(s): I31.39 - Other pericardial effusion (noninflammatory) Plan: In November she did have symptoms of abdominal discomfort, nausea, poor appetite. She went to [facility] and was found to have a large pericardial effusion. She was transferred to [facility] where she had pericardioc entesis draining 300 cc of noe colored fluid. She was off Eliquis for a period of time in November. Records have been scanned into our chart. She tells me that she was on a medication to help prevent breast cancer recurrence. At that time they felt the medication was contributing to her pericardial effusion and has since been discontinued. Last echo shows only trivial effusion. Cultures were done however she has not heard anything about the test results. Will reach out to [facility] to see if further information on the pericardial fluid is available. Orders: Orders Cardioversion 2 Weeks I48.91 - Unspecified atrial fibrillation Medications: New amiodarone 200 mg orally 400mg ( 2 tablets) twice a day for 14 days, then reduce to 200mg ( 1 tablet) daily; quantity of 70 on initial fill, refills to be 30 tabs each. 70 tabs 3RF 30 days Changed From furosemide (Lasix) 20 mg PO DAILY PRN 30 tabs 1RF shortness of breath To furosemide (Lasix) 20 mg PO DAILY 30 tabs 3RF shortness of breath Coding Level of Care Code Est Pt Level 4 (95935) Diagnoses Atrial fibrillation, new onset I48.91 Near syncope R55 Pericardial effusion I31.39 CPT Codes EKG - CPT: 12671-[id number], Complete ([id number]) Time Spent (min) 35
[2023-03-09 15:27] VITALS: BP 120/72; BMI 32.1
== END 2023-03-09 16:00 | disposition home or self-care (01) ==
PROVIDERS: PCP Physician Assistant; Visit Provider Nurse Practitioner Family
DX: I48.91 Unspecified atrial fibrillation (principal)
CPT/HCPCS: 93010; 99214

== ENCOUNTER → 2023-03-09 15:14 | Outpatient (BNVA) | payer MEDICARE, MEDICAID, SELFPAY | PROVIDERS: PCP Physician Assistant; Visit Provider Nurse Practitioner Family | DX: I48.91 Unspecified atrial fibrillation (principal); R55 Syncope and collapse; I31.39 Other pericardial effusion (noninflammatory) | CPT/HCPCS: 93005; 99212 ==

== ENCOUNTER → 2023-03-16 14:46 | Outpatient (BNVA) | payer MEDICARE, MEDICAID, SELFPAY | PROVIDERS: PCP Physician Assistant; Visit Provider Nurse Practitioner Family ==

== ENCOUNTER → 2023-03-29 11:32 | Day surgery (SDC) | payer MEDICARE, MEDICAID, SELFPAY ==
[2023-03-27 15:04] VITALS: BMI 32.1
--- NOTE | 2023-03-29 12:32 | ECG_ITS ---
Test Reason : afib? Blood Pressure : / mmHG Vent. Rate : 071 BPM Atrial Rate : 071 BPM P-R Int : 234 ms QRS Dur : 128 ms QT Int : 460 ms P-R-T Axes : 061 -08 -02 degrees QTc Int : 499 ms Sinus rhythm with 1st degree A-V block Right bundle branch block Abnormal ECG When compared with ECG of 11-NOV-2022 14:03, Sinus rhythm has replaced Atrial fibrillation QT has lengthened Referred By: Stef Maxwell Electronically Signed By:STEF MAXWELL MD
--- NOTE | 2023-03-29 13:04 | PC.NURSE ---
pt found to be in regular rythym with right bundle. ekg done and confirmed. pic of ekg sent to md and cv cancelled. clinic will follow up with her per md statement at bedside.
== END ==
PROVIDERS: PCP Nurse Practitioner Family; Visit Provider Internal Medicine Cardiovascular Disease
DX: I48.91 Unspecified atrial fibrillation (principal); Z53.8 Procedure and treatment not carried out for other reasons; I45.10 Unspecified right bundle-branch block
CPT/HCPCS: 93005; J2371; J2704

== ENCOUNTER → 2023-03-29 12:32 | Outpatient (BNV) | payer MEDICARE, MEDICAID, SELFPAY | PROVIDERS: PCP Nurse Practitioner Family; Visit Provider Internal Medicine Cardiovascular Disease | DX: I44.0 Atrioventricular block, first degree (principal); I45.10 Unspecified right bundle-branch block | CPT/HCPCS: 93010 ==

== ENCOUNTER 2023-04-20 14:53 | Outpatient (REF) | payer MEDICARE, MEDICAID, SELFPAY ==
[2023-04-20 16:04] LABS: MANUAL DIFF FLAG NO
[2023-04-20 16:49] LABS: Basophils Absolute Auto 0.1 X10*3/uL (0.0-0.2); Basophils Percent Auto 1.3 % (0-2); Eosinophils Absolute Auto 0.1 X10*3/uL (0.0-0.4); Eosinophils Percent Auto 1.7 % (0-4); Hematocrit 40.4 % (37.0-47.0); Hemoglobin 12.9 g/dl (12.0-16.0); Imm Gran Abs Auto 0.02 X10*3/uL (0.00-0.03); Imm Gran Pct Auto 0.3 % (0.0-0.4); Lymphocytes Absolute Auto 1.9 X10*3/uL (1.2-4.9); Lymphocytes Percent Auto 27.4 % (20-40); Mean Corpuscular HGB Conc 31.9 g/dl (31.0-35.0); Mean Corpuscular Hemoglobin 27.3 pg (27.0-33.0); Mean Corpuscular Volume 85.4 fL (80.0-98.0); Monocytes Absolute Auto 0.7 X10*3/uL (0.1-1.2); Monocytes Percent Auto 10.5 % (2-11); Neutrophils Absolute Auto 4.2 x10*3/uL (2.0-8.3); Neutrophils Percent Auto 58.8 % (45-73); Platelet Count 309 X10*3/uL (160-400); Red Blood Count 4.73 X10*6/uL (4.20-5.50); Red Cell Distribution Width 17.6 % (11.0-16.0); White Blood Count 7.1 X10*3/uL (4.8-10.8)
[2023-04-20 17:09] LABS: B Type Natriuretic Peptide 185 pg/mL (<100)
[2023-04-20 17:26] LABS: Alanine Aminotransferase 19 U/L (0-31); Alkaline Phosphatase 77 U/L (39-117); Anion Gap 10 (12-20); Aspartate Amino Transferase 25 U/L (5-31); Bilirubin Total 0.8 mg/dL (0.0-1.0); Blood Urea Nitrogen 15 mg/dL (9-16); Calcium 10.2 mg/dL (8.4-10.2); Carbon Dioxide 29 mmol/L (22-29); Chloride 107 mmol/L (96-108); Estimated Glomerular Filt Rate > 60; Glucose Random 83 mg/dL (60-115); Potassium 4.4 mmol/L (3.3-5.1); Sodium 142 mmol/L (135-145); Total Protein 7.3 g/dL (6.5-8.0)
[2023-04-20 17:42] LABS: TSH reflex Free T4 1.31 uIU/mL (0.32-4.0)
== END 2023-04-20 14:54 | disposition home or self-care (01) ==
LOC: HO.LAB 14:53
PROVIDERS: PCP Physician Assistant; Visit Provider Nurse Practitioner Family
DX: I48.91 Unspecified atrial fibrillation (principal); I31.39 Other pericardial effusion (noninflammatory); D64.9 Anemia, unspecified; R55 Syncope and collapse; I44.0 Atrioventricular block, first degree; I45.10 Unspecified right bundle-branch block; I10 Essential (primary) hypertension
CPT/HCPCS: 36415; 80053; 83880; 84443; 85025; 93005; 99212

== ENCOUNTER 2023-04-20 14:53 | Outpatient (AMB) | payer MEDICARE, MEDICAID, SELFPAY ==
[2023-04-20 14:58] VITALS: BP 110/80; PULSE 71; BMI 30.3
--- NOTE | 2023-04-20 14:58 | A.OFFVIS_ITS ---
Intake Vital Signs 04/20/23 14:58 Height 5 ft 3 in Weight 170 lb 13.732 oz BMI 30.3 BP 110/80 Blood Pressure Location Lt brachial Position Sitting Pulse 71 Intake Visit Reasons: follow up Intake Note: f/up pt its feeling fine. Family And Divorce Legal Assistant Required: No Family And Divorce Legal Assistant Name: daughter. Accompanied by: Daughter Allergies Penicillins [PENICILLINS] Allergy (Intermediate, Verified 03/29/23 12:41) RASH pravastatin Allergy (Unknown, Verified 03/29/23 12:41) Rash Medication List - Last Reconciled 04/20/23 by LIZABETH FigueroaC acetaminophen ER (Arthritis Pain Relief (acetaminophen) ER) 1,300 mg (2 x 650 mg) PO Q8H PRN amiodarone 200 mg orally 400mg ( 2 tablets) twice a day for 14 days, then reduce to 200mg ( 1 tablet) daily; quantity of 70 on initial fill, refills to be 30 tabs each. 30 days apixaban (Eliquis) 5 mg PO BID 90 days atorvastatin 20 mg PO DAILY 90 days blood sugar diagnostic (FreeStyle Lite Strips) As directed blood-glucose meter (FreeStyle Lite Meter kit) As directed calcium carbonate (Oyster Shell Calcium) 500 mg PO BID 30 days carvedilol 3.125 mg PO BID 30 days cholecalciferol (vitamin D3) 50 mcg PO DAILY 90 days compr.stocking,knee,long,large Need for 10-15 mmHg impression diaper,brief,adult,disposable (Briefs, Adult-Extra Large) Need for XL adult briefs ferrous sulfate 325 mg PO BID 30 days fluoxetine 20 mg PO DAILY 30 days fluticasone propionate 50 mcg/actuation 1 spray intranasal DAILY 30 days furosemide (Lasix) 20 mg PO DAILY hydroxyzine HCl 25 mg PO BEDTIME PRN incontinence pad, liner, disp (Pant Liners, Large Plus pads) As directed lancets (FreeStyle Lancets) As directed loratadine 10 mg PO DAILY 90 days losartan 100 mg PO DAILY 30 days mecobalamin (vitamin B12) mcg PO metformin ER 500 mg PO BID 90 days miscellaneous medical supply 1 ea miscellaneous DAILY 99 days ondansetron 8 mg PO Q12H PRN 5 days pantoprazole 40 mg PO DAILY Ventolin HFA 90 mcg/actuation (albuterol sulfate) 2 puffs PO Q6H PRN 30 days NS HPI follow up HPI Details Karena is a 77-year-old medical history of hypertension, hyperlipidemia, diabetes, mild obesity who was admitted to [facility] October 2022 after having an episode at home does concerning for near syncope with graying of vision and left-sided facial droop and aphasia, described as brief by her daughter. EMS was called and patient was evaluated and admitted with new findings of atrial fibrillation. She was evaluated by Neurology who thought she may have seizure-type event then MRI confirmed tiny left parietal infarct. On follow-up visit her her condition was stable. A few weeks later she was admitted to [facility] with moderate to large pericardial effusion requiring pericardiocentesis, possibly related to a chemotherapy medication. She was discharged on 12/04/2022 and follow-up echocardiogram done a few weeks later showed only trace effusion. On last visit she reported intolerance to metoprolol with GI side effects. She was then changed to carvedilol. On last visit she was having signs of heart failure, persistent AFib. She was started on amiodarone and set up for cardioversion. When she arrived for the cardioversion she was in normal sinus rhythm. Today she reports that she has been doing well since starting on amiodarone. She no longer has shortness of breath with activity. No PND, orthopnea or edema. She has increased activity tolerance. No chest discomfort at rest or with activity. No presyncope, syncope, falls. No bleeding issues reported. Taking all meds as directed. Daughter is present. [facility] Medical History Breast cancer Arthritis Systolic murmur Atrial fibrillation Anemia Tricuspid regurgitation Embolic stroke Atrial flutter Hemiparesis of left side of face Near syncope Depression HAYLIE (generalized anxiety disorder) Invasive ductal carcinoma of breast, stage 3 Asthma HLD (hyperlipidemia) DMII (diabetes mellitus, type 2) HTN (hypertension) Surgical History History of colonoscopy Hx of total mastectomy of right breast History of lumpectomy of right breast History of breast biopsy History of tubal ligation History of bladder surgery Family History Father No problems noted. Mother No problems noted. Social History Household Members: Family Housing: House Alcohol intake: never Patient Tobacco Use Status: Former Tobacco user Quit Date: 12 years ago e-Cigarette/Vaping Use: Never Used Second Hand Smoke Exposure: Yes service: No Current occupational status: disabled Cognitive needs: No Hearing needs: No Vision needs: Yes (glasses) Female Reproductive History Menstrual Age of Menarche: 16 Review of Systems Const All systems reviewed & are unremarkable except as noted in HPI and below Denies chills, Denies fatigue, Denies fever(s), Denies frequent falls, Denies weakness, Denies weight gain and Denies weight loss ENT Denies dizziness Card Denies chest pain, Denies leg edema, Denies lightheadedness, Denies palpitations, Denies dyspnea and Denies dyspnea on exertion Resp Denies cough, Denies dyspnea and Denies dyspnea on exertion GI Denies hematochezia Musc Denies abnormal gait, Denies muscle weakness, Denies numbness, Denies radiating pain into limb and Denies tingling Neuro Denies abnormal gait, Denies dizziness, Denies frequent falls, Denies numbness, Denies tingling and Denies weakness Endo Denies fatigue and Denies palpitations Physical Exam Vital Signs: BMI result Body Mass Index 30.3 Const General: cooperative, healthy appearing, comfortable and no acute distress Orientation/consciousness: patient oriented x3 Neck Neck: Yes normal visual inspection Resp Effort & Inspection: normal respiratory effort Auscultation: clear to auscultation bilaterally, no crackles, no rales, no rhonchi and no wheezes Cardio Jugular venous distension: no JVD Rate: regular rate Rhythm: regular rhythm Heart sounds: S1 normal heart sound present, S2 normal heart sound present, no murmurs and no rubs Neuro General: patient oriented x3 Extrem General: Yes normal to inspection Psych Appearance: grossly normal Mental Status: mental status grossly normal Speech and movement: Normal speech and movement present Office Procedures EKG Details: Today, read by me, normal sinus rhythm, first-degree AV block, right bundle branch block, rate 71, JT index 108 [id number], Complete Assessment & Plan Assessment & Plan (1) Atrial fibrillation, new onset: Code(s): I48.91 - Unspecified atrial fibrillation Plan: New finding of atrial fibrillation during hospital admission, 10/16/2022. She had a neurological type event at home that was short-lived and testing confirms a tiny left parietal infarct. No recurrent neuro logical events since that time. She had been started on Eliquis for anticoagulation. She was put on low-dose metoprolol for heart rate control. A Holter monitor done 10/21/2022 for 3 days shows atrial fibrillation throughout, average heart rate 83, heart rate range 56 to 119. Her echo done 10/07/2022 showed EF 65-70%, no regional wall motion abnormalities. Nuclear stress test done 11/28/2022 showed normal myocardial perfusion imaging, EF 71%. On follow-up visit she reported GI side effects and felt it was from the metoprolol. Labs showed elevated BNP, 2181. She was started on low-dose Lasix and metoprolol was then changed to carvedilol for heart rate control. She continued to remain in atrial fibrillation and an echocardiogram was done 01/26/2023 showed EF 48%, moderate biatrial enlargement. With reduction in EF, heart failure - the plan changed to rhythm control rather than rate control. She was started on amiodarone loading dose followed by 200 mg daily. She was set up for a cardioversion following loading. When she arrived for the procedure on 03/29/2023 it was noted she was in sinus rhythm. Cardioversion was canceled. Today she presents for follow-up telling me that she is feeling very good. EKG done today showing ongoing sinus rhythm with first-degree AV block and right bundle branch block which is unchanged, rate 71. She no longer has any signs of heart failure on exam. She has not been taking her Lasix. Will have her continue on amiodarone as well as low-dose carvedilol. Blood pressure good at 110/80. Continue Eliquis without interruption. Will have her obtain labs including CMP, CBC, TSH, BNP. Cardiology office visit 4 months, sooner if needed. (2) Near syncope: Code(s): R55 - Syncope and collapse Plan: Near syncope prior to October 2022 admission. Evaluated by Neurology. Suspected possible seizure type active however daughter tells me that the EEG came out normal. I am not seeing the results in our system for review. She did have a brain MRI on 10/18/2022 showing a tiny acute white matter infarct involving the left parietal lobe and chronic small vessel ischemic changes within the periventricular white matter. She underwent a carotid ultrasound on 10/17/2022 showing right and left ICA carotid stenosis 0-49%. Patient states she was told she did not need to have neurology follow-up as outpatient. Found to have AFib as above. Now on full anticoagulation. (3) Pericardial effusion: Code(s): I31.39 - Other pericardial effusion (noninflammatory) Plan: In November 2022 she did have symptoms of abdominal discomfort, nausea, poor appetite. She went to [facility] and was found to have a large pericardial effusion. She was transferred to [facility] where she had pericardiocentesis draining 300 cc of noe colored fluid. Records have been scanned into our chart. She tells me that she was on a medication to help prevent breast cancer recurrence. At that time they felt the medication was contributing to her pericardial effusion and it has since been discontinued. Last echo 01/26/2023 shows only trivial effusion. Plan Time spent on chart review, documentation, interview and assessment Orders: Orders Comprehensive Met. Panel Today I31.39 - Other pericardial effusion (noninflammatory), I48.91 - Unspecified atrial fibrillation Complete Blood Count Auto Diff Today D64.9 - Anemia, unspecified B Type Natriuretic Peptide Today I31.39 - Other pericardial effusion (noninflammatory), I48.91 - Unspecified atrial fibrillation TSH reflex Free T4 Today R55 - Syncope and collapse Coding Level of Care Code Est Pt Level 4 (29586) Diagnoses Atrial fibrillation, new onset I48.91 Near syncope R55 Pericardial effusion I31.39 CPT Codes EKG - CPT: 12184-[id number], Complete ([id number]) Time Spent (min) 28
== END 2023-04-20 15:44 | disposition home or self-care (01) ==
PROVIDERS: PCP Physician Assistant; Visit Provider Nurse Practitioner Family
DX: I48.91 Unspecified atrial fibrillation (principal); R55 Syncope and collapse; I31.39 Other pericardial effusion (noninflammatory)
CPT/HCPCS: 93010; 99214

== ENCOUNTER 2023-08-17 15:15 | Outpatient (AMB) | payer MEDICARE, MEDICAID, SELFPAY ==
[2023-08-17 15:25] VITALS: BP 108/60; PULSE 69; BMI 32.0
--- NOTE | 2023-08-17 15:25 | MHC.OFFVIS ---
Vital Signs 08/17/23 15:25 Height 5 ft 3 in Weight 180 lb 12.465 oz BMI 32.0 BP 108/60 Blood Pressure Location Lt brachial Position Sitting Pulse 69 Pulse Source Monitor Intake Visit Reasons: 4 months fu Safety Professional Required: No Arts And Crafts Instructor: Arts And Crafts Instructor Present Allergies Penicillins [PENICILLINS] Allergy (Intermediate, Verified 08/17/23 15:28) RASH pravastatin Allergy (Unknown, Verified 08/17/23 15:28) Rash Medication List - Last Reconciled 08/17/23 by SAMANTHA Figueroa acetaminophen ER (Arthritis Pain Relief (acetaminophen) ER) 1,300 mg (2 x 650 mg) PO Q8H PRN amiodarone 200 mg orally 400mg ( 2 tablets) twice a day for 14 days, then reduce to 200mg ( 1 tablet) daily; quantity of 70 on initial fill, refills to be 30 tabs each. 30 days apixaban (Eliquis) 5 mg PO BID 90 days atorvastatin 20 mg PO DAILY 90 days blood sugar diagnostic (FreeStyle Lite Strips) As directed blood-glucose meter (FreeStyle Lite Meter kit) As directed calcium carbonate (Oyster Shell Calcium) 500 mg PO BID 30 days carvedilol 3.125 mg PO BID 90 days cholecalciferol (vitamin D3) 50 mcg PO DAILY 90 days compr.stocking,knee,long,large Need for 10-15 mmHg impression diaper,brief,adult,disposable (Briefs, Adult-Extra Large) Need for XL adult briefs duloxetine (Cymbalta) 60 mg PO DAILY ferrous sulfate 325 mg PO BID 30 days fluticasone propionate 50 mcg/actuation 1 spray intranasal DAILY 30 days furosemide (Lasix) 20 mg PO DAILY hydroxyzine HCl 25 mg PO BEDTIME PRN incontinence pad, liner, disp (Pant Liners, Large Plus pads) As directed lancets (FreeStyle Lancets) As directed loratadine 10 mg PO DAILY 90 days losartan 100 mg PO DAILY 30 days mecobalamin (vitamin B12) mcg PO metformin ER 500 mg PO BID 90 days miscellaneous medical supply 1 ea miscellaneous DAILY 99 days ondansetron 8 mg PO Q12H PRN 5 days pantoprazole 40 mg PO DAILY Ventolin HFA 90 mcg/actuation (albuterol sulfate) 2 puffs PO Q6H PRN 30 days NS HPI HPI 4 months fu: Details: Karena is a 78-year-old medical history of hypertension, hyperlipidemia, diabetes, mild obesity, CVA, paroxysmal atrial fibrillation, large pleural effusion requiring pericardiocentesis, 11/2022 which was thought to be related to a chemotherapy agent that was used for her breast cancer. Echoes were followed and last showed only trace effusion. She then had issues with persistent AFib and was put on amiodarone. A cardioversion was set up and she converted prior to the procedure. Today she reports that she has been doing well since her last visit in April. She has not noticed any heart palpitations. Her breathing is comfortable. No PND, orthopnea or edema. No chest discomfort at rest or with activity. No lightheadedness, presyncope, syncope, falls. No bleeding issues reported. Taking all meds as directed. Daughter is present. [facility] Medical History Breast cancer Arthritis Systolic murmur Atrial fibrillation Anemia Tricuspid regurgitation Embolic stroke Atrial flutter Hemiparesis of left side of face Near syncope Depression HAYLIE (generalized anxiety disorder) Invasive ductal carcinoma of breast, stage 3 Asthma HLD (hyperlipidemia) DMII (diabetes mellitus, type 2) HTN (hypertension) Surgical History History of colonoscopy Hx of total mastectomy of right breast History of lumpectomy of right breast History of breast biopsy History of tubal ligation History of bladder surgery Family History Father No problems noted. Mother No problems noted. Social History Household Members: Family Housing: House Alcohol intake: never Patient Tobacco Use Status: Former Tobacco user Quit Date: 12 years ago e-Cigarette/Vaping Use: Never Used Second Hand Smoke Exposure: Yes service: No Current occupational status: disabled Cognitive needs: No Hearing needs: No Vision needs: Yes (glasses) Female Reproductive History Menstrual Age of Menarche: 16 Review of Systems Const All systems reviewed & are unremarkable except as noted in HPI and below ENT Denies dizziness Card Denies chest pain, Denies chest pain at rest, Denies chest pain with activity, Denies rapid heart rate, Denies pedal edema, Denies edema, Denies leg edema, Denies lightheadedness, Denies palpitations, Denies dyspnea, Denies dyspnea on exertion and Denies orthopnea Resp Denies cough, Denies dyspnea and Denies dyspnea on exertion GI Denies hematochezia and Denies change in stool character Musc Denies abnormal gait, Denies limited range of motion, Denies muscle cramps, Denies muscle weakness, Denies numbness, Denies radiating pain into limb, Denies stiffness and Denies tingling Neuro Denies abnormal gait, Denies dizziness, Denies numbness and Denies tingling Endo Denies palpitations Physical Exam Vital Signs: Last Vital Signs Pulse 69 08/17/23 15:25 BP 108/60 08/17/23 15:25 BMI result Body Mass Index 32.0 Const General: cooperative, healthy appearing, comfortable and no acute distress Orientation/consciousness: patient oriented x3 Neck Neck: Yes normal visual inspection Resp Effort & Inspection: normal respiratory effort Auscultation: clear to auscultation bilaterally, no crackles, no rales, no rhonchi and no wheezes Cardio Jugular venous distension: no JVD Rate: regular rate Rhythm: regular rhythm Heart sounds: S1 normal heart sound present, S2 normal heart sound present, no murmurs and no rubs Neuro General: patient oriented x3 Extrem General: Yes normal to inspection Psych Appearance: grossly normal Mental Status: mental status grossly normal Speech and movement: Normal speech and movement present Office Procedures EKG Details: Today, read by me, sinus rhythm with first-degree AV block, low-voltage QRS, right bundle branch block, rate 69, QTC 456 milliseconds [id number], Complete Assessment & Plan Assessment & Plan (1) Atrial fibrillation, new onset: Code(s): I48.91 - Unspecified atrial fibrillation Category: Medical Plan: New finding of atrial fibrillation during hospital admission, 10/16/2022. She had a neurological type event at home that was short-lived and testing confirmed a tiny left parietal infarct. No recurrent neurological events since that time. She had been started on Eliquis for anticoagulation. She was put on low-dose metoprolol for heart rate control. A Holter monitor done 10/21/2022 for 3 days shows atrial fibrillation throughout, average heart rate 83, heart rate range 56 to 119. Her echo done 10/07/2022 showed EF 65-70%, no regional wall motion abnormalities. Nuclear stress test done 11/28/2022 showed normal myocardial perfusion imaging, EF 71%. On follow-up visit she reported GI side effects and felt it was from the metoprolol. Labs showed elevated BNP, 2181. She was started on low-dose Lasix and metoprolol was then changed to carvedilol for heart rate control. She continued to remain in atrial fibrillation and an echocardiogram was done 01/26/2023 showed EF 48%, moderate biatrial enlargement. With reduction in EF, heart failure - the plan changed to rhythm control rather than rate control. She was started on amiodarone and cardioversion scheduled. When she arrived for the procedure on 03/29/2023 it was noted she was in sinus rhythm. Cardioversion was canceled. Today she reports she has been feeling well with no concerning symptoms. EKG done today showing ongoing sinus rhythm with first-degree AV block and right bundle branch block which is unchanged, rate 69. She has no signs of heart failure on exam. She has been taking Lasix only p.r.n. for leg edema. She tells me she did have an echocardiogram recently in [place]. Will work on obtaining that result. Labs done on 04/20/2023 showed creatinine 0.81, BNP 185, TSH 1.31, AST and ALT normal, hematocrit 40.4. Will have her continue on amiodarone as well as low-dose carvedilol. Blood pressure good at 108/60. Continue Eliquis for anticoagulation. Cardiology office visit 6 months, sooner if needed. (2) Near syncope: Code(s): R55 - Syncope and collapse Category: Medical Plan: Near syncope prior to October 2022 admission. Evaluated by Neurology. Suspected possible seizure type active however daughter tells me that the EEG came out normal. I am not seeing the results in our system for review. She did have a brain MRI on 10/18/2022 showing a tiny acute white matter infarct involving the left parietal lobe and chronic small vessel ischemic changes within the periventricular white matter. She underwent a carotid ultrasound on 10/17/2022 showing right and left ICA carotid stenosis 0-49%. Patient previously told me she did not need to have neurology follow-up as outpatient. Found to have AFib as above. Now on full anticoagulation. She has had known recurrent neurological type symptoms. (3) Pericardial effusion: Code(s): I31.39 - Other pericardial effusion (noninflammatory) Category: Medical Plan: In November 2022 she did have symptoms of abdominal discomfort, nausea, poor appetite. She went to [facility] and was found to have a large pericardial effusion. She was transferred to [facility] where she had pericardiocentesis draining 300 cc of noe colored fluid. Records have been scanned into our chart. She tells me that she was on a medication to help prevent breast cancer recurrence. At that time they felt the medication was contributing to her pericardial effusion and it has since been discontinued. Last echo 01/26/2023 in our system shows only trivial effusion. She tells me she had a repeat echocardiogram recently in [place]. Will work on getting that result. Plan Time spent on chart review, documentation, interview and assessment Coding Level of Care Code Est Pt Level 4 (04563) Diagnoses Atrial fibrillation, new onset I48.91 Near syncope R55 Pericardial effusion I31.39 CPT Codes EKG - CPT: 54003-[id number], Complete ([id number]) Time Spent (min) 30
== END 2023-08-17 16:11 | disposition home or self-care (01) ==
PROVIDERS: PCP Physician Assistant; Visit Provider Nurse Practitioner Family
DX: I44.0 Atrioventricular block, first degree (principal); I45.10 Unspecified right bundle-branch block
CPT/HCPCS: 93010; 99214

== ENCOUNTER → 2023-08-17 15:15 | Outpatient (BNVA) | payer MEDICARE, MEDICAID, SELFPAY | PROVIDERS: PCP Physician Assistant; Visit Provider Nurse Practitioner Family | DX: I48.91 Unspecified atrial fibrillation (principal); R55 Syncope and collapse; I31.39 Other pericardial effusion (noninflammatory) | CPT/HCPCS: 93005; 99212 ==

== ENCOUNTER → 2023-12-14 14:02 | Outpatient (RCR) | payer MEDICARE, MEDICAID, SELFPAY ==
[2020-09-10 11:15] VITALS: BP 136/67; PULSE 90; RESP 12; TEMP 36.5; O2SAT 95; BMI 39.2
--- NOTE | 2020-09-10 11:32 | P.CNHO_ITS ---
Subjective - Subjective Chief complaint: Consult for: Right breast cancer. Patient: new to practice Consult date: 09/10/20 Requesting Physician: Matias Primary Care Provider: Efraín Salcedo PA-C Medical Summary: DIAGNOSIS: BREAST CANCER. HPI - Consult Narrative Reason for consult: Consult for: Right breast cancer. Narrative: Karena Cuevas is a pleasant 75 year old lady, with a previous history of pulmonary embolism, who had a mammogram on July 21. This revealed: 1. Right: Increased calcifications mid outer right breast superimposed upon other chronic ductal secretory calcifications. 2. Left: No mammographic evidence of malignancy. ASSESSMENT: BI-RADS 0: Incomplete - Need Additional Imaging Evaluation. This was done on 08/10 and revealed: The additional views confirm new heterogeneous segmental calcifications in the outer right breast. Calcifications are in small groups at the anterior to mid extent and in ductal distribution mid to posterior extent. They span at least 6 cm in length anterior to posterior. She had a stereotactic biopsy on 08/27. Pathology revealed: 1. Breast biopsy, right interior: Invasive ductal carcinoma,MSBR grade 3. DCIS, nuclear grade 3, with necrosis. 2. Breast biopsy, right posterior: DCIS, nuclear grade 3, with necrosis. Small foci suspicious for invasive ductal carcinoma, MSBR great 3. 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 Menopause: 47. She took OC but no HRT. Family history: No known history of breast cancer in the family. Two brothers had colon cancer. One at 83. 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 She is . She has 3 children. She used to smoke a pack-a-day quit at 37. Denies any alcohol. ROS: She denies easy fatigability. No fever nor chills. Lately her appetite has gone down since she got the diagnosis. Denies weight loss. Denies headache. Sometimes she gets dizzy. No chest pain or trouble breathing. No cough no sputum. Denies any abdominal pain nausea vomiting heartburn indigestion. Bowels are working without any gross blood in it. She had a colonoscopy 2 years ago. She will be due for another 1 in 3 No dysuria or hematuria. She gets joint pains from arthritis. Denies focal weakness. Denies depression. She is rather anxious. She gets pruritus in the axillae and inguinal areas with a rash. Review of Systems - Constitutional Reports system reviewed and no additional complaints, except as documented - Eyes Reports system reviewed and no additional complaints, except as documented - ENT Reports system reviewed and no additional complaints, except as documented - Cardiovascular Reports system reviewed and no additional complaints, except as documented - Respiratory Reports no additional respiratory complaints - Gastrointestinal Reports system reviewed and no additional complaints, except as documented - Genitourinary Reports no additional female genitourinary complaints - Musculoskeletal Reports system reviewed and no additional complaints, except as documented - Integumentary/Breasts Skin/Breast: Reports no additional skin complaints - Neurologic Reports system reviewed and no additional complaints, except as documented - Psychiatric Reports system reviewed and no additional complaints, except as documented - Endocrine Reports no additional endocrine complaints - Hematologic/Lymphatic Reports system reviewed and no additional complaints, except as documented - Allergic/Immunologic Reports system reviewed and no additional complaints, except as documented Oncology Screenings - ECOG Performance Status ECOG Performance Status: 0 PMFSH Family History: Family History (Last Reviewed 09/03/20 @ 14:33 by Efraín Salcedo PA-C) Father No problems noted. Mother No problems noted. Surgical History: Surgical History (Last Reviewed 09/10/20 @ 11:18 by Angeles Claudio) History of bladder surgery History of breast biopsy History of tubal ligation Social History: Social History (Last Reviewed 09/10/20 @ 11:18 by Angeles Claudio) Alcohol History: Alcohol intake: never Tobacco History: Patient Tobacco Use Status: Former Tobacco user Smoke Quit Date: 12 years ago Home Medications and Allergies Home Medications Medication Instructions Recorded Confirmed Type albuterol sulfate 90 mcg/actuation 2 puff INHALATION Q6H PRN 03/04/20 09/10/20 History aerosol inhaler clotrimazole-betamethasone 1 1 applic TOPICAL BID 03/04/20 09/10/20 History %-0.05 % topical cream ketoconazole 2 % topical foam 1 applic TOPICAL ONCE g 03/04/20 09/10/20 History metformin 500 mg tablet,extended 500 mg PO BID 03/04/20 09/10/20 History release 24 hr triamcinolone acetonide 0.5 % 1 applic TOPICAL BID 03/04/20 09/10/20 History topical cream Allergies Allergy/AdvReac Type Severity Reaction Status Date / Time Penicillins [PENICILLINS] Allergy Intermediate RASH Verified 09/03/20 14:21 pravastatin Allergy Unknown Unknown Verified 09/03/20 14:21 Physical Exam Vital signs: Vital Signs Temp 97.7 F 09/10/20 11:15 Pulse 90 09/10/20 11:15 Resp 12 09/10/20 11:15 BP 136/67 09/10/20 11:15 Pulse Ox 95 09/10/20 11:15 Intake & Output 09/09/20 09/10/20 09/10/20 18:59 06:59 18:59 Other: Weight 100.6 kg [place] Weight in Grams [id number] Weight 100.6 kg - Constitutional Present: no acute distress - Routine HEENT Exam Head: Present: normal inspection ENT: Present: mucous membranes moist - Routine Neck Exam Present: supple Hem/Onc Consult Result - Labs CBC & Chem 7: 09/10/20 12:27 09/10/20 12:27 Assessment and Plan (1) Breast cancer, right breast Status: Acute This is a pleasant 75-year-old lady with a history of PE. She was on warfarin for a couple years. She stopped it and November of 2015. She has had a recent diagnosis of right breast cancer. She had a stereotactic biopsy on 08/27, which revealed: ER positive, WI positive, HER2 Hammad negative. I explained the results of the pathology to her and discussed further treatment plan. She needs to have a lumpectomy with axillary sampling, via sentinel node. Once I have the exact pathologic staging, including the size and status of the axillary nodes along with the Oncotype DX, can then decide about further treatment. She asked about going for a 2nd opinion. I explained to her that it would be better to have up front surgery done here in then consider an opinion in [place]. PLAN: She has an appointment with Dr. Rodriguez on Monday. She will keep that. I will check baseline labs including tumor marker. I sent a prescription for Lotrimin cream, for intertrigo. I will see her back in a month. Will review pathology and make further treatment plans based upon the results. Thank you, CC: Dr. Salcedo.
--- NOTE | 2020-09-10 12:17 | MHC.HEMONCMA ---
Pt presents for consult on R breast cancer. History reviewed and labs drawn.
[2020-09-10 12:30] LABS: MANUAL DIFF FLAG NO
[2020-09-10 12:34] LABS: Basophils Absolute Auto 0.1 X10*3/uL (0.0-0.2); Basophils Percent Auto 0.8 % (0-2); Eosinophils Absolute Auto 0.2 X10*3/uL (0.0-0.4); Eosinophils Percent Auto 2.3 % (0-4); Hematocrit 38.9 % (37-47); Hemoglobin 12.6 g/dl (12.0-16.0); Imm Gran Abs Auto 0.03 X10*3/uL (0.00-0.03); Imm Gran Pct Auto 0.4 % (0.0-0.4); Lymphocytes Absolute Auto 2.1 X10*3/uL (1.2-4.9); Lymphocytes Percent Auto 26.9 % (20-40); Mean Corpuscular HGB Conc 32.4 g/dl (31.0-35.0); Mean Corpuscular Volume 86.4 fL (80-98); Mean Platelet Volume 10.2 fL (9.4-12.3); Monocytes Absolute Auto 0.7 X10*3/uL (0.1-1.2); Monocytes Percent Auto 8.2 % (2-11); Neutrophils Absolute Auto 4.9 X10*3/uL (2.0-8.3); Neutrophils Percent Auto 61.4 % (45-73); Platelet Count 314 X10*3/uL (160-400); Red Cell Distribution Width 15.2 % (11.0-16.0)
[2020-09-10 13:06] LABS: Alanine Aminotransferase 17 U/L (0-31); Alkaline Phosphatase 67 U/L (39-117); Anion Gap 12 (12-20); Aspartate Amino Transferase 16 U/L (5-31); Bilirubin Total 0.7 mg/dL (0.0-1.0); Blood Urea Nitrogen 13 mg/dL (9-16); Calcium 9.8 mg/dL (8.4-10.2); Carbon Dioxide 30 mmol/L (22-29); Chloride 107 mmol/L (96-108); Creatinine Clr Calc Pharmacy 64.3; Estimated Glomerular Filt Rate > 60; Glucose Random 87 mg/dL (60-115); Potassium 4.6 mmol/L (3.3-5.1); Sodium 144 mmol/L (135-145); Total Protein 6.7 g/dL (6.5-8.0)
[2020-09-10 13:27] LABS: Vitamin D 25-OH Total 47.8 ng/mL (>30)
[2020-09-11 13:17] LABS: CA 27.29 20 U/mL (<38)
== END | disposition home or self-care (01) ==
LOC: HO.ONC 09-10 11:04
PROVIDERS: PCP Physician Assistant; Referring Provider Physician Assistant; Visit Provider Internal Medicine Medical Oncology
DX: C50.911 Malignant neoplasm of unspecified site of right female breast (principal); Z17.0 Estrogen receptor positive status [ER+]; Z86.711 Personal history of pulmonary embolism
CPT/HCPCS: 36415; 80053; 82306; 85025; 86300; 99204

== ENCOUNTER 2024-05-23 14:36 | Outpatient (AMB) | payer MEDICARE, MEDICAID, SELFPAY ==
--- OUTSIDE RECORDS SUMMARY | 2024-05-23 14:56 | XMS_ITS ---
Author Name [facility] Organization Unknown History of Medication Use Medication Directions Dispensed Refills Start Date End Date Stat us losartan (COZAAR) 100 MG tablet Take 1 tablet (100 mg total) by mouth. active metoPROLOL SUCCINATE (TOPROL-XL) 25 MG 24 hr tablet Take 1 tablet (25 mg total) by mouth. active oxybutynin (DITROPAN-XL) 10 MG 24 hr tablet TAKE 1 TABLET BY MOUTH ONCE DAILY DOSE INCREASE 09/25/2022 active letrozole (FEMARA) 2.5 MG tablet Take 1 tablet (2.5 mg total) by mouth daily 09/07/2022 active metoPROLOL TARTRATE (LOPRESSOR) 25 MG tablet Take 1 tablet (25 mg total) by mouth 2 (two) times a day. 12/04/2022 01/04/2023 active Cholecalciferol (D2000 Ultra Strength) 2000 UNITS Cap capsule Take 1 capsule (2,000 Units total) by mouth. active atorvastatin (LIPITOR) 20 MG tablet Take 1 tablet (20 mg total) by mouth daily. 11/22/2022 active Problems Problem Status Onset Date Problem Type Date of Resoluti on Source Hypertension active ProblemAct [facility] CVA, old, dysarthria active ProblemAct [facility] Pericardial effusion active EncounterDiagnosisA ct [facility]
--- OUTSIDE RECORDS SUMMARY | 2024-05-23 14:56 | XMS_ITS | Clinical Summary ---
Author Organization [facility] Address [address] [place] [address] Care Team Providers Care Dba Manager Name Role Phone Efraín Salcedo Primary Care Provider + Allergies Active Allergy Reactions Criticality Noted Date Comments Penicillins Hives High 09/21/2020 Tolerated ancef on 11/23/20 Medications Medication Sig Dispensed Refills Start Date End Date Status atorvastatin (LIPITOR) 20 MG tablet Take 1 tablet (20 mg total) by mouth daily. 11/22/2022 Active Cholecalciferol (D2000 Ultra Strength) 2000 UNITS Cap capsule Take 1 capsule (2,000 Units total) by mouth. Active FLUoxetine (PROzac) 20 MG capsule Take 1 capsule (20 mg total) by mouth daily. 11/12/2022 Active fluticasone (FloNASE) 50 mcg/spray nasal spray 1 spray into each nostril Once before discharge. Active letrozole (FEMARA) 2.5 MG tablet Take 1 tablet (2.5 mg total) by mouth daily 09/07/2022 Active loratadine (CLARITIN) 10 MG tablet Take 1 tablet (10 mg total) by mouth daily. 09/25/2022 Active losartan (COZAAR) 100 MG tablet Take 1 tablet (100 mg total) by mouth. Active metFORMIN (GLUCOPHAGE-XR) 500 MG 24 hr tablet Take 1 tablet (500 mg total) by mouth 2 (two) times a day. 09/25/2022 Active oxybutynin (DITROPAN-XL) 10 MG 24 hr tablet TAKE 1 TABLET BY MOUTH ONCE DAILY DOSE INCREASE 09/25/2022 Active PANTOprazole (PROTONIX) 40 MG EC tablet Take 1 tablet (40 mg total) by mouth daily. 10/23/2022 Active simethicone (MYLICON,GAS-X) 125 MG Cap Take 1 capsule (125 mg total) by mouth 4 (four) times a day as needed. Active metoPROLOL TARTRATE (LOPRESSOR) 25 MG tabletIndications:Pe ricardial effusion Take 1 tablet (25 mg total) by mouth 2 (two) times a day. 60 tablet 12/04/2022 Active clotrimazole-betamet hasone (LOTRISONE) lotion Apply topically 2 (two) times a day as needed. Active metoPROLOL SUCCINATE (TOPROL-XL) 25 MG 24 hr tablet Take 1 tablet (25 mg total) by mouth. Active Active Problems Problem Noted Date Diagnosed Date Hospitalization within last 30 days 12/26/2022 Pericardial effusion 11/30/2022 Hypertension CVA, old, dysarthria Social History Tobacco Use Types Packs/Day Years Used Date Smoking Tobacco: Former Cigarettes Smokeless Tobacco: Never Alcohol Use Standard Drinks/Week Comments Never 0 (1 standard drink = 0.6 oz pur e alcohol) AUDIT-C Answer Date Recorded Q1: How often do you have a drink containing alcohol? Never 11/30/2022 Q2: How many drinks containi ng alcohol do you have on a typical day when you are drinking? Patient does not drink Q3: How often do you have si x or more drinks on one occasion? Never 11/30/2022 Overall Financial Resource Strain (CARDIA) Answe r Date Recorded How hard is it for you to pa y for the very basics like food, housing, medical care, and heating? Not very hard 11/30/2022 Hunger Vital Sign Answer Date Recorded Within the past 12 months, y ou worried that your food would run out before you got the money to buy more. Never true 12/01/19 Within the past 12 months, t he food you bought just didn't last and you didn't have money to get more. Never true 11/30/2022 PRAPARE - Transportation Answer Date Re corded In the past 12 months, has l ack of transportation kept you from medical appointments or from getting medications? No 11/09 In the past 12 months, has l ack of transportation kept you from meetings, work, or from getting things needed for daily living? No 11/30/2022 Housing Stability Vital Sign Answer Osman e Recorded In the last 12 months, was t here a time when you were not able to pay the mortgage or rent on time? No 11/30/2022 In the last 12 months, how many places have you lived? 1 11/30/2022 In the last 12 months, was t here a time when you did not have a steady place to sleep or slept in a [facility] (including now)? No 11/30/2022 Sex and Gender Information Value Date Recorded Sex Assigned at Female 11/30/2022 12:48 AM EDT Gender Identity Female 11/30/2022 12:48 AM EDT Sexual Orientation Heterosexual (straight) 11/30 12:48 AM EDT Last Filed Vital Signs Vital Sign Reading Time Taken Comments Blood Pressure 140/92 12/26/2022 1:43 PM EDT Pulse 83 12/26/2022 1:19 PM EDT Temperature 36.7 ??C (98 ??F) 12/04/2022 11:21 AM EDT Respiratory Rate 18 12/04/2022 11:21 AM EDT Oxygen Saturation 98% 12/26/2022 1:19 PM EDT Inhaled Oxygen Concentration - - Weight 82.6 kg (182 lb) 12/26/2022 1:19 PM EDT Height 160 cm (5' 3 ) 12/26/2022 1:19 PM EDT Body Mass Index 32.24 12/26/2022 1:19 PM EDT Plan of Treatment Health Maintenance Due Date Last Done Comments Hepatitis C Virus Screening 1945 DTaP/Tdap/Td Vaccines (1 - Tdap) 06/18/1966 Pneumococcal Vaccines 50+ (1 of 1 - PCV) 06/18/1997 Zoster (Shingles) Vaccine (1 of 2) 06/18/1997 DXA Bone Density (Females,Ag es 65 and older) 06/18/2012 RSV Vaccine 60 years and old er and Patients (1 - 1-dose 75+ series) 06/18/2022 Influenza Vaccine 11/09/2023 COVID-19 Vaccine (2023-2 5 season) 2023 Hepatitis B Vaccines Aged Out No long er eligible based on patient's age to complete this topic Advance Directives * Full Code (Latest Code Status on File) Date Activated Date Inactivated Comments 11/30/2022 1:19 AM Care Teams Dba Manager Relationship Specialty Start Date End Date Efraín Salcedo PA [facility] [place] [address] PCP - General Adult Health - PA/APNP/COMMERCIAL DRAFTER/GROCERY CLERK MARKING 11/30/22
[2024-05-23 15:12] VITALS: BP 108/62; PULSE 68; BMI 35.8
--- NOTE | 2024-05-23 15:12 | A.OFFVIS_ITS ---
Vital Signs 05/23/24 15:12 Height 5 ft 3 in Weight 201 lb 15.095 oz BMI 35.8 BP 108/62 Blood Pressure Location Lt brachial Position Sitting Pulse 68 Pulse Source Monitor Intake Visit Reasons: 6m follow up Child Nutrition Director Required: No Inspector Sheet Metal Parts: Inspector Sheet Metal Parts Present Allergies Penicillins [PENICILLINS] Allergy (Intermediate, Verified 05/23/24 15:15) RASH pravastatin Allergy (Unknown, Verified 05/23/24 15:15) Rash Medication List - Last Reconciled 05/23/24 by SAMANTHA Figueroa acetaminophen ER (Arthritis Pain Relief (acetaminophen) ER) 1,300 mg (2 x 650 mg) PO Q8H PRN amiodarone 200 mg PO DAILY 30 days apixaban (Eliquis) 5 mg PO BID 90 days atorvastatin 20 mg PO DAILY 90 days blood sugar diagnostic (FreeStyle Lite Strips) As directed blood-glucose meter (FreeStyle Lite Meter kit) As directed calcium carbonate (Oyster Shell Calcium) 500 mg PO BID 30 days carvedilol 3.125 mg PO BID 90 days cholecalciferol (vitamin D3) 50 mcg PO DAILY 90 days compr.stocking,knee,long,large Need for 10-15 mmHg impression diaper,brief,adult,disposable (Briefs, Adult-Extra Large) Need for XL adult briefs duloxetine (Cymbalta) 60 mg PO DAILY ferrous sulfate 325 mg PO BID 30 days fluticasone propionate 50 mcg/actuation 1 spray intranasal DAILY 30 days furosemide (Lasix) 20 mg PO DAILY hydroxyzine HCl 25 mg PO BEDTIME PRN incontinence pad, liner, disp (Pant Liners, Large Plus pads) As directed lancets (FreeStyle Lancets) As directed loratadine 10 mg PO DAILY 90 days losartan 100 mg PO DAILY 30 days mecobalamin (vitamin B12) mcg PO metformin ER 500 mg PO BID 90 days miscellaneous medical supply 1 ea miscellaneous DAILY 99 days ondansetron 8 mg PO Q12H PRN 5 days pantoprazole 40 mg PO DAILY Ventolin HFA 90 mcg/actuation (albuterol sulfate) 2 puffs PO Q6H PRN 30 days NS HPI HPI 6m follow up: Details: Karena is a 78-year-old medical history of hypertension, hyperlipidemia, diabetes, mild obesity, CVA, paroxysmal atrial fibrillation, large pleural effusion requiring pericardiocentesis, 11/2022 which was thought to be related to a chemotherapy agent that was used for her breast cancer. Echoes were followed and she has had no recurrent effusion. She then had issues with persistent AFib and was put on amiodarone. A cardioversion was set up and she converted prior to the procedure. She now presents for follow-up. Today she reports that she has been doing well since her last visit in August. She has not noticed any heart palpitations. Her breathing is comfortable. No PND, orthopnea or edema. No chest discomfort at rest or with activity. No lightheadedness, presyncope, syncope, falls. No bleeding issues reported. She has been gaining weight and admits to being mostly sedentary. Her daughter states that home physical therapy was just ordered and will be starting soon. Taking all meds as directed. Daughter is present. [facility] Medical History Breast cancer Arthritis Systolic murmur Atrial fibrillation Anemia Tricuspid regurgitation Embolic stroke Atrial flutter Hemiparesis of left side of face Near syncope Depression HAYLIE (generalized anxiety disorder) Invasive ductal carcinoma of breast, stage 3 Asthma HLD (hyperlipidemia) DMII (diabetes mellitus, type 2) HTN (hypertension) Surgical History History of colonoscopy Hx of total mastectomy of right breast History of lumpectomy of right breast History of breast biopsy History of tubal ligation History of bladder surgery Family History Father No problems noted. Mother No problems noted. Social History Household Members: Family Housing: House Alcohol intake: never Patient Tobacco Use Status: Former Tobacco user e-Cigarette/Vaping Use: Never Used Second Hand Smoke Exposure: Yes service: No Current occupational status: disabled Cognitive needs: No Hearing needs: No Vision needs: Yes (glasses) Female Reproductive History Menstrual Age of Menarche: 16 Review of Systems Const All systems reviewed & are unremarkable except as noted in HPI and below Reports weight gain ENT Denies dizziness Card Denies chest pain, Denies chest pain at rest, Denies chest pain with activity, Denies rapid heart rate, Denies pedal edema, Denies edema, Denies leg edema, Denies lightheadedness, Denies palpitations, Denies dyspnea, Denies dyspnea on exertion and Denies orthopnea Resp Denies cough, Denies dyspnea and Denies dyspnea on exertion GI Denies hematochezia and Denies change in stool character Musc Reports abnormal gait (unsteadiness), Denies limited range of motion, Denies muscle cramps, Denies muscle weakness, Denies numbness, Denies radiating pain into limb, Denies stiffness and Denies tingling Neuro Reports abnormal gait (unsteadiness), Denies dizziness, Denies numbness and Denies tingling Endo Denies palpitations Physical Exam Vital Signs: Last Vital Signs Pulse 68 05/23/24 15:12 BP 108/62 05/23/24 15:12 BMI result Body Mass Index 35.8 Const General: cooperative, healthy appearing, comfortable and no acute distress Orientation/consciousness: patient oriented x3 Neck Neck: Yes normal visual inspection Resp Effort & Inspection: normal respiratory effort Auscultation: clear to auscultation bilaterally, no crackles, no rales, no rhonchi and no wheezes Cardio Jugular venous distension: no JVD Rate: regular rate Rhythm: regular rhythm Heart sounds: S1 normal heart sound present, S2 normal heart sound present, no murmurs and no rubs Neuro General: patient oriented x3 Extrem General: Yes normal to inspection Psych Appearance: grossly normal Mental Status: mental status grossly normal Speech and movement: Normal speech and movement present Office Procedures EKG Details: Today, read by me, Sinus rhythm, 1st degree avb, RBBB, rate 68 [id number], Complete Assessment & Plan Assessment & Plan (1) Atrial fibrillation: Code(s): I48.91 - Unspecified atrial fibrillation Category: Medical Qualifiers: Atrial fibrillation type: permanent Qualified Code(s): I48.21 - P ermanent atrial fibrillation Plan: New finding of atrial fibrillation during hospital admission, 10/16/2022. She had a neurological type event at home that was short-lived and testing confirmed a tiny left parietal infarct. No recurrent neurological events since that time. She had been started on Eliquis for anticoagulation. She was put on low-dose metoprolol for heart rate control. A Holter monitor done 10/21/2022 for 3 days shows atrial fibrillation throughout, average heart rate 83, heart rate range 56 to 119. Her echo done 10/07/2022 showed EF 65-70%, no regional wall motion abnormalities. Nuclear stress test done 11/28/2022 showed normal myocardial perfusion imaging, EF 71%. On follow-up she had reported GI side effects from metoprolol and was changed to carvedilol for heart rate control. She continued to remain in atrial fibrillation and an echocardiogram was done 01/26/2023 showed EF 48%, moderate biatrial enlargement. With reduction in EF, heart failure - the plan changed to rhythm control rather than rate control. She was started on amiodarone and cardioversion scheduled. When she arrived for the procedure she was in sinus rhythm and the cardioversion was canceled. At this time she remains in sinus rhythm. EKG done today shows sinus rhythm with first- degree AV block, right bundle branch block, QTC 459 milliseconds, rate 68. She is currently on amiodarone 200 mg daily, carvedilol 3.125 mg b.i.d. for rhythm and rate control and on Eliquis for anticoagulation. She has not had any concerning heart palpitations. Last labs done in our system 04/20/2023 showed normal AST and ALT, TSH 1.31. Will give her a lab slip today to have labs rechecked: CMP and TSH. Will send her for chest x-ray as part of amiodarone monitoring. Instructed to call if she has recurrent heart palpitations. Emergency care if ever needed. Cardiology follow-up 6 months, sooner if needed. (2) On amiodarone therapy: Code(s): Z79.899 - Other exterminator termite (current) drug therapy Category: Medical Plan: As above (3) Pericardial effusion: Code(s): I31.39 - Other pericardial effusion (noninflammatory) Category: Medical Plan: In November 2022 she did have symptoms of abdominal discomfort, nausea, poor appetite. She went to [facility] and was found to have a large pericardial effusion. She was transferred to [facility] where she had pericardiocentesis draining 300 cc of noe colored fluid. Records have been scanned into our chart. She tells me that she was on a medication to help prevent breast cancer recurrence. At that time they felt the medication was contributing to her pericardial effusion and it has since been discontinued. Last echo 01/26/2023 in our system shows only trivial effusion. Echocardiogram done 05/17/2024 as ordered by PCP, performed at [facility] showed EF 61%, trace to mild mitral regurgitation, mild tricuspid regurgitation, no mention of effusion. Plan Time spent on chart review, documentation, interview and assessment Orders: Orders Comprehensive Met. Panel Today I48.21 - Permanent atrial fibrillation XR chest 2V Today Z79.899 - Other jail (current) drug therapy TSH reflex Free T4 Today I48.21 - Permanent atrial fibrillation Coding Level of Care Code Est Pt Level 4 (35072) Complex EM visit Add On G2211 Diagnoses Permanent atrial fibrillation I48.21 Atrial fibrillation type: permanent On amiodarone therapy Z79.899 Pericardial effusion I31.39 CPT Codes EKG - CPT: 08984-[id number], Complete ([id number]) Time Spent (min) 30
--- OUTSIDE RECORDS SUMMARY | 2024-05-23 15:23 | XMS_ITS | Clinical Summary ---
Author Organization [facility] Address [address] [place] [address] Care Team Providers Care Bankruptcy Paralegal Name Role Phone Efraín Salcedo Primary Care [...] place to sleep or slept in a half-way (including now)? No 11/30/2022 Sex and Gender [...] Inactivated Comments 11/30/2022 1:19 AM Care Teams Bankruptcy Paralegal Relationship Specialty Start Date End Date Efraín Salcedo PA [facility] [place] [address] PCP - General Adult Health - PA/APNP/POURED PIPE MAKER/MANAGER LIFE INSURANCE 11/30/22
== END 2024-05-23 15:46 | disposition home or self-care (01) ==
PROVIDERS: PCP Physician Assistant; Visit Provider Nurse Practitioner Family
DX: I48.21 Permanent atrial fibrillation (principal); Z79.899 Other long term (current) drug therapy; I31.39 Other pericardial effusion (noninflammatory)
CPT/HCPCS: 93010; 99214; G2211

== ENCOUNTER → 2024-05-23 14:53 | Outpatient (BNVA) | payer MEDICARE, MEDICAID, SELFPAY | PROVIDERS: PCP Physician Assistant; Visit Provider Nurse Practitioner Family | DX: I48.21 Permanent atrial fibrillation (principal); I31.39 Other pericardial effusion (noninflammatory); Z79.899 Other long term (current) drug therapy; I45.10 Unspecified right bundle-branch block; I44.0 Atrioventricular block, first degree; R94.31 Abnormal electrocardiogram [ECG] [EKG] | CPT/HCPCS: 93005; 99212 ==

== ENCOUNTER 2024-09-13 11:02 | Outpatient (REF) | payer MEDICARE, MEDICAID, SELFPAY ==
--- NOTE | ~2024-09-13 | XR_ITS ---
EXAMINATION: XR CHEST CLINICAL INFORMATION: Z79.899 - Other alf (current) drug therapy COMPARISON: 11/11/2022, 05/20/2020. TECHNIQUE: 2 views of the chest were obtained. FINDINGS: The cardiac, hilar, and mediastinal contours are normal. Aortic mural calcification. The lungs are mildly hyperaerated, however clear bilaterally. There is no pneumothorax or pleural effusion. There is no focal osseous or soft tissue abnormality. There are degenerative changes throughout the spine. Numerous surgical clips noted right breast. Surgical clips noted right upper quadrant, likely cholecystectomy. XR/XR chest 2V IMPRESSION: No active pulmonary disease. Electronically signed by: Shelton Cobb MD 09/13/2024 11:46 AM EDT
--- OUTSIDE RECORDS SUMMARY | 2024-09-13 11:55 | XMS_ITS | Clinical Summary ---
Author Organization [facility] Address [address] [place] [address] Care Team Providers Care Java Spring Developer Name Role Phone Efraín Salcedo Primary Care Provider + Allergies Active Allergy Reactions Criticality Noted Date Comments Penicillins Hives High 09/21/2020 Tolerated ancef on 11/23/20 Medications atorvastatin (LIPITOR) 20 MG tablet Take 1 tablet (20 mg total) by mouth daily. 3 Active Cholecalciferol (D2000 Ultra Strength) 2000 UNITS Cap capsule Take 1 capsule (2,000 Units total) by mouth. Active FLUoxetine (PROzac) 20 MG capsule Take 1 capsule (20 mg total) by mouth daily. 3 Active fluticasone (FloNASE) 50 mcg/spray nasal spray 1 spray into each nostril Once before discharge. Active letrozole (FEMARA) 2.5 MG tablet Take 1 tablet (2.5 mg total) by mouth daily 3 Active loratadine (CLARITIN) 10 MG tablet Take 1 tablet (10 mg total) by mouth daily. 3 Active losartan (COZAAR) 100 MG tablet Take 1 tablet (100 mg total) by mouth. Active metFORMIN (GLUCOPHAGE-XR) 500 MG 24 hr tablet Take 1 tablet (500 mg total) by mouth 2 (two) times a day. 3 Active oxybutynin (DITROPAN-XL) 10 MG 24 hr tablet TAKE 1 TABLET BY MOUTH ONCE DAILY DOSE INCREASE 3 Active PANTOprazole (PROTONIX) 40 MG EC tablet Take 1 tablet (40 mg total) by mouth daily. 3 Active simethicone (MYLICON,GAS-X) 125 MG Cap Take 1 capsule (125 mg total) by mouth 4 (four) times a day as needed. Active metoPROLOL TARTRATE (LOPRESSOR) 25 MG tabletIndicatio ns:Pericardial effusion Take 1 tablet (25 mg total) by mouth 2 (two) times a day. 60 tablet 3 Active clotrimazole-be tamethasone (LOTRISONE) lotion Apply topically 2 (two) times [...] money to buy more. Never true 12/01/19 23 Within the past 12 months, t he [...] place to sleep or slept in a chcf (including now)? No 11/30/2022 Comments Unknown Sex and Gender Information Value Date Recorded Sex Assigned at Female 11/30/2022 12:48 AM EDT Legal Sex Female 6:34 PM EST Gender Identity Female 11/30/2022 12:48 AM EDT [...] Patients (1 - 1-dose 75+ series) 06/18/2022 COVID-19 Vaccine ( - 2023-2 5 season) 2023 Influenza Vaccine 11/08/2024 Hepatitis B Vaccines Aged Out No long er eligible based on patient's age to complete this topic Insurance MEDICARE PART A & B [facility] Better [employer] Advance Directives * Full Code (Latest Code Status on File) Date Activated Date Inactivated Comments 11/30/2022 1:19 AM Care Teams Java Spring Developer Relationship Specialty Start Date End Date Efraín Salcedo PA [facility] [place] [id number] PCP - General Adult Health - PA/ROLA/COPYRIGHT MANAGER/ORGANIC CHEMIST 11/30/22
[2024-09-13 12:45] LABS: Alanine Aminotransferase 25 U/L (0-31); Albumin Level 3.9 g/dL (3.5-5.0); Alkaline Phosphatase 66 U/L (39-117); Anion Gap 10 (12-20); Aspartate Amino Transferase 26 U/L (5-31); Bilirubin Total 1.1 mg/dL (0.0-1.0); Blood Urea Nitrogen 20 mg/dL (9-16); Calcium 9.6 mg/dL (8.4-10.2); Carbon Dioxide 30 mmol/L (22-29); Chloride 105 mmol/L (96-108); Estimated Glomerular Filt Rate 44; Glucose Random 109 mg/dL (60-115); Sodium 141 mmol/L (135-145); Total Protein 6.8 g/dL (6.5-8.0)
[2024-09-13 13:05] LABS: TSH reflex Free T4 1.22 uIU/mL (0.32-4.0)
== END 2024-09-13 11:03 | disposition home or self-care (01) ==
LOC: HO.XRAY 11:02
PROVIDERS: PCP Nurse Practitioner Family; Visit Provider Nurse Practitioner Family
DX: I48.21 Permanent atrial fibrillation (principal); Z79.899 Other long term (current) drug therapy
CPT/HCPCS: 36415; 71046; 80053; 84443

== ENCOUNTER → 2024-09-13 11:15 | Outpatient (BNV) | payer MEDICARE, MEDICAID, SELFPAY | PROVIDERS: PCP Nurse Practitioner Family; Visit Provider Radiology Diagnostic Radiology | DX: Z79.899 Other long term (current) drug therapy (principal) | CPT/HCPCS: 71046 ==

== ENCOUNTER 2024-09-16 12:50 | Outpatient (AMB) | payer MEDICARE, MEDICAID, SELFPAY ==
[2024-09-16 12:55] VITALS: BP 108/62; PULSE 80; BMI 38.4
--- NOTE | 2024-09-16 12:55 | A.OFFVIS_ITS ---
Vital Signs 09/16/24 12:55 Height 5 ft 3 in Weight 216 lb 14.958 oz BMI 38.4 BP 108/62 Blood Pressure Location Lt brachial Position Sitting Pulse 80 Pulse Source Pulse Oximeter Intake Visit Reasons: 3m f/u rs 08/29/24 Double Cut Off Saw Operator Required: No Customer Sales Representative: Customer Sales Representative Present Allergies Penicillins [PENICILLINS] Allergy (Intermediate, Verified 09/16/24 13:00) RASH pravastatin Allergy (Unknown, Verified 09/16/24 13:00) Rash Medication List - Last Reconciled 09/16/24 by SAMANTHA Figueroa acetaminophen ER (Arthritis Pain Relief (acetaminophen) ER) 1,300 mg (2 x 650 mg) PO Q8H PRN amiodarone 200 mg PO DAILY 30 days apixaban (Eliquis) 5 mg PO BID 90 days atorvastatin 20 mg PO DAILY 90 days blood sugar diagnostic (FreeStyle Lite Strips) As directed blood-glucose meter (FreeStyle Lite Meter kit) As directed calcium carbonate (Oyster Shell Calcium) 500 mg PO BID 30 days carvedilol 3.125 mg PO BID 90 days cholecalciferol (vitamin D3) 50 mcg PO DAILY 90 days compr.stocking,knee,long,large Need for 10-15 mmHg impression diaper,brief,adult,disposable (Briefs, Adult-Extra Large) Need for XL adult briefs duloxetine (Cymbalta) 60 mg PO DAILY ferrous sulfate 325 mg PO BID 30 days fluticasone propionate 50 mcg/actuation 1 spray intranasal DAILY 30 days furosemide (Lasix) 20 mg PO DAILY gabapentin 100 mg PO BID hydroxyzine HCl 25 mg PO BEDTIME PRN incontinence pad, liner, disp (Pant Liners, Large Plus pads) As directed lancets (FreeStyle Lancets) As directed loratadine 10 mg PO DAILY 90 days losartan 100 mg PO DAILY 30 days mecobalamin (vitamin B12) mcg PO miscellaneous medical supply 1 ea miscellaneous DAILY 99 days ondansetron 8 mg PO Q12H PRN 5 days pantoprazole 40 mg PO DAILY Ventolin HFA 90 mcg/actuation (albuterol sulfate) 2 puffs PO Q6H PRN 30 days NS HPI HPI 3m f/u rs 08/29/24: Details: Karena is a 79-year-old medical history of hypertension, hyperlipidemia, diabetes, mild obesity, CVA, paroxysmal atrial fibrillation, large pericardial effusion requiring pericardiocentesis 11/2022 which was thought to be related to a chemotherapy agent that was used for her breast cancer. Echoes were followed and she has had no recurrent effusion. She then had issues with persistent AFib and was put on amiodarone. A cardioversion was set up and she converted prior to the procedure. She now presents for follow-up. Her last prior visit was 05/25/2024. Today she reports that she has been doing well since her last visit in May. She has not noticed any heart palpitations. Her breathing is comfortable. No PND, orthopnea or edema. No chest discomfort at rest or with activity. No lightheadedness, presyncope, syncope, falls. No bleeding issues reported. She admits to being mostly sedentary. Taking all meds as directed. Daughter is present. [facility] Medical History Breast cancer Arthritis Systolic murmur Atrial fibrillation Anemia Tricuspid regurgitation Embolic stroke Atrial flutter Hemiparesis of left side of face Near syncope Depression HAYLIE (generalized anxiety disorder) Invasive ductal carcinoma of breast, stage 3 Asthma HLD (hyperlipidemia) DMII (diabetes mellitus, type 2) HTN (hypertension) Surgical History History of colonoscopy Hx of total mastectomy of right breast History of lumpectomy of right breast History of breast biopsy History of tubal ligation History of bladder surgery Family History Father No problems noted. Mother No problems noted. Social History Household Members: Family Housing: House Alcohol intake: never Patient Tobacco Use Status: Former Tobacco user e-Cigarette/Vaping Use: Never Used Second Hand Smoke Exposure: Yes service: No Current occupational status: disabled Cognitive needs: No Hearing needs: No Vision needs: Yes (glasses) Female Reproductive History Menstrual Age of Menarche: 16 Review of Systems Const All systems reviewed & are unremarkable except as noted in HPI and below ENT Denies dizziness Card Denies chest pain, Denies chest pain at rest, Denies chest pain with activity, Denies rapid heart rate, Denies pedal edema, Denies edema, Denies leg edema, Denies lightheadedness, Denies palpitations, Denies dyspnea, Denies dyspnea on exertion and Denies orthopnea Resp Denies cough, Denies dyspnea and Denies dyspnea on exertion GI Denies hematochezia and Denies change in stool character Musc Denies abnormal gait, Denies limited range of motion, Denies muscle cramps, Denies muscle weakness, Denies numbness, Denies radiating pain into limb, Denies stiffness and Denies tingling Neuro Denies abnormal gait, Denies dizziness, Denies numbness and Denies tingling Endo Denies palpitations Physical Exam Vital Signs: Last Vital Signs Pulse 80 09/16/24 12:55 BP 108/62 09/16/24 12:55 BMI result Body Mass Index 38.4 Const General: cooperative, healthy appearing, comfortable and no acute distress Orientation/consciousness: patient oriented x3 Neck Neck: Yes normal visual inspection Resp Effort & Inspection: normal respiratory effort Auscultation: clear to auscultation bilaterally, no crackles, no rales, no rhonchi and no wheezes Cardio Jugular venous distension: no JVD Rate: regular rate Rhythm: regular rhythm Heart sounds: S1 normal heart sound present, S2 normal heart sound present, no murmurs and no rubs Neuro General: patient oriented x3 Extrem General: Yes normal to inspection Psych Appearance: grossly normal Mental Status: mental status grossly normal Speech and movement: Normal speech and movement present Office Procedures EKG Details: Today, read by me, normal sinus rhythm, low-voltage QRS, right bundle branch block, rate 80, QTC 449 millisecond [id number], Complete Assessment & Plan Assessment & Plan (1) Atrial fibrillation: Code(s): I48.91 - Unspecified atrial fibrillation Category: Medical Qualifiers: Atrial fibrillation type: permanent Qualified Code(s): I48.21 - Permanent atrial fibrillation Plan: History of atrial fibrillation is currently suppressed with amiodarone, since 02/2023. She is on carvedilol for heart rate control. She is on Eliquis for anticoagulation with no bleeding issues reported. Last echo 10/07/2022 showed EF 65-70%, no regional wall motion abnormalities. Nuclear stress test done 11/28/2022 showed normal myocardial perfusion imaging, EF 71%. In the past she had GI issues which she related to metoprolol and has been changed to the carvedilol. EKG done today showing sinus rhythm with low-voltage QRS, right bundle branch block, rate 80. Labs for amiodarone monitoring 09/13/2024 shows normal AST and ALT, TSH 1.22. Chest x-ray done 09/13/2024 shows no active disease. Instructed to call if she has recurrent heart palpitations. Emergency care if ever needed. Cardiology follow-up 6 months, sooner if needed. (2) On amiodarone therapy: Code(s): Z79.899 - Other computer terminal operator (current) drug therapy Category: Medical Plan: As above (3) Pericardial effusion: Comment: 11/2022 Code(s): I31.39 - Other pericardial effusion (noninflammatory) Category: Medical Plan: In November 2022 she did have symptoms of abdominal discomfort, nausea, poor appetite. She went to [facility] and was found to have a large pericardial effusion. She was transferred to [facility] where she had pericardiocentesis draining 300 cc of noe colored fluid. Records have been scanned into our chart. He was on a med to help prevent breast cancer reoccurrence which they thought was contributing to her pericardial effusion and it has since been discontinued. She has had no reoccurrence of her pericardial effusion on subsequent echocardiograms. Plan I have reviewed the management of the patient's atrial fibrillation with her, emphasizing the necessity of current medications, including amiodarone, apixaban, and carvedilol. We discussed the risks associated with her cerebrovascular history and the essential nature of apixaban. The patient unde rstands the role of her medication routine in maintaining heart rhythm stability and stroke prevention. Follow-up visits, imaging, and adherence to recommendations are vital for ongoing management. The positive EKG findings and resolved pericardial effusion were acknowledged, with future monitoring advised. Patient Instructions: - Take amiodarone as directed for heart rhythm. - Maintain carvedilol dose for heart health. - Continue apixaban to prevent stroke. - Contact us if you experience new or worsening symptoms. - Report significant bruising or bleeding events. - Stay active as possible, within comfort and capability. Reviewed the use of an ambient scribe for clinic note documentation during this visit. Visit time spent on chart review, interview, assessment, orders, documentation. Coding Level of Care Code Est Pt Level 4 (97480) Complex EM visit Add On G2211 Diagnoses Permanent atrial fibrillation I48.21 Atrial fibrillation type: permanent On amiodarone therapy Z79.899 Pericardial effusion I31.39 CPT Codes EKG - CPT: 97353-[id number], Complete ([id number]) Time Spent (min) 28
== END 2024-09-16 13:25 | disposition home or self-care (01) ==
LOC: HO.HCS 12:50
PROVIDERS: PCP Physician Assistant; Visit Provider Nurse Practitioner Family
DX: I48.21 Permanent atrial fibrillation (principal); Z79.899 Other long term (current) drug therapy; I31.39 Other pericardial effusion (noninflammatory)
CPT/HCPCS: 93010; 99214; G2211

== ENCOUNTER → 2024-09-16 12:50 | Outpatient (BNVA) | payer MEDICARE, MEDICAID, SELFPAY | PROVIDERS: PCP Physician Assistant; Visit Provider Nurse Practitioner Family | DX: I48.21 Permanent atrial fibrillation (principal); I31.39 Other pericardial effusion (noninflammatory); Z79.899 Other long term (current) drug therapy; I45.10 Unspecified right bundle-branch block; R94.31 Abnormal electrocardiogram [ECG] [EKG] | CPT/HCPCS: 93005; 99212 ==

== ENCOUNTER 2024-10-14 13:17 | Outpatient (REF) | payer MEDICARE, MEDICAID, SELFPAY ==
--- OUTSIDE RECORDS SUMMARY | 2024-10-14 13:42 | XMS_ITS | Clinical Summary ---
Author Organization [facility] Address [address] [place] [address] Care Team Providers Care Manufacturing Director Name Role Phone Efraín Salcedo Primary Care [...] place to sleep or slept in a jail (including now)? No 11/30/2022 Comments Unknown Sex [...] 85 12/26/2022 1:19 PM EDT Temperature 36.7 C (98 F) 12/04/2022 11:21 AM EDT Respiratory Rate 18 [...] - 1-dose 75+ series) 06/18/2022 COVID-19 Vaccine (2023-2 5 season) 2023 Influenza Vaccine 11/08/2024 Hepatitis B Vaccines Aged Out No long er eligible based on patient's age to complete this topic Insurance MEDICARE PART A & B [facility] [employer] Advance Directives * Full Code (Latest Code Status on File) Date Activated Date Inactivated Comments 11/30/2022 1:19 AM Care Teams Manufacturing Director Relationship Specialty Start Date End Date Efraín Salcedo PA [address] [place] [address] PCP - General Adult Health - PA/APNP/ESCORT PATIENTS/DIET COUNSELOR 11/30/22
== END 2024-10-14 13:18 | disposition home or self-care (01) ==
LOC: HO.MAMMO 13:17
PROVIDERS: PCP Nurse Practitioner Family; Visit Provider Nurse Practitioner Family
DX: Z12.31 Encounter for screening mammogram for malignant neoplasm of breast (principal)
CPT/HCPCS: 77063; 77067

== ENCOUNTER → 2024-10-14 14:00 | Outpatient (BNV) | payer MEDICARE, MEDICAID, SELFPAY | PROVIDERS: PCP Nurse Practitioner Family; Visit Provider Internal Medicine | DX: Z12.31 Encounter for screening mammogram for malignant neoplasm of breast (principal) | CPT/HCPCS: 77063; 77067 ==

== ENCOUNTER 2025-02-01 15:45 | Emergency (ER) | payer OTHER, SELFPAY ==
--- NOTE | ~2025-02-01 | XR_ITS ---
CLINICAL HISTORY: fall L shoulder pain 3 views right shoulder Comparison: None Findings: No fractures or dislocations. No significant arthritic change. No radiopaque foreign body. Normal visualized right chest. Impression: 1. Unremarkable right shoulder This document has been electronically signed by: Eladio Stanton MD on 02/01/2025 17:09:52
--- NOTE | ~2025-02-01 | CT_ITS ---
CLINICAL HISTORY: fall + head strike. On Eliquis CT head without contrast Comparison: 10/16/2022 Findings: No intracranial mass, midline shift, hydrocephalus, or acute hemorrhage. No CT evidence of acute ischemia. Visualized paranasal sinuses and mastoid air cells normal. Orbits unremarkable. No skull fracture Impression: 1. No acute intracranial abnormalities. This document has been electronically signed by: Eladio Stanton MD on 02/01/2025 18:11:45
--- NOTE | ~2025-02-01 | CT_ITS ---
CLINICAL HISTORY: fall on eliquis CT cervical spine without contrast Comparison: None Findings: Normal limited view of the intracranial contents. Soft tissues of the neck are normal. Lung apices are normal. Normal vertebral body alignment. No fractures or dislocations. Minimal degenerative disc changes are present, slightly more prominent at C5-6 level. Impression: 1. No cervical vertebral fracture or traumatic malalignment. This document has been electronically signed by: Eladio Stanton MD on 02/01/2025 18:11:31
--- NOTE | 2025-02-01 15:55 | ED_ITS ---
HPI - Fall General Chief Complaint: Fall Stated Complaint: fell/hit head rt and shoulder pain Time Seen by Provider: 02/01/25 18:47 Source: patient Mode of arrival: ambulatory Limitations: no limitations History of Present Illness ED Provider: ANGELIQUE HASSAN PA-C HPI Narrative: 79 year old female with pmhx significant for HTN, T2DM, HLD, asthma, stage 3 breast cancer, HAYLIE, depression, OA, atrial fibrillation on AC, CVA, anemia presents to the ED today with family for evaluation s/p mechanical fall occurring around 1330 today. Patient states she was walking through her kitchen when her sandals got caught under her feet, causing her to fall forward. Reports putting her right arm out to break her fall. Reports head strike on floor. No LOC. She is anticoagulated on Eliquis. She was unable to stand up after the fall. Denies any symptoms preceding the fall/ Reports calling EMS who evaluated her on scene. She declined transport to the ED as she had soiled herself while on the floor and wanted to clean up. Her family then drove her to the ED. Reports mild headache and right upper arm pain. Denies any difficulty moving her right arm. Denies numbness/tingling/weakness of the extremities. Denies neck or back pain. Related Data Home Medications ?Medication ?Instructions ?Recorded ?Confirmed hydroxyzine HCl 25 mg tablet 25 mg PO BEDTIME PRN itch 03/27/23 09/16/24 mecobalamin (vitamin B12) 500 mcg mcg PO 04/20/2301/02 chewable tablet duloxetine 60 mg capsule,delayed 60 mg PO DAILY 09/16/24 release (Cymbalta) gabapentin 100 mg capsule 100 mg PO BID 09/16/2409/16 Previous Rx's ?Medication ?Instructions ?Recorded lancets 28 gauge (FreeStyle #100 ea 11/26/20 Lancets) blood sugar diagnostic (FreeStyle #50 ea 11/27/20 Lite Strips) blood-glucose meter (FreeStyle #1 ea 11/27/20 Lite Meter kit) Ventolin HFA 90 mcg/actuation 2 puff PO Q6H PRN shortn ess of 05/03/21 aerosol inhaler (albuterol sulfate) breath or wheezing 30 days #18 grams calcium carbonate (Oyster Shell 500 mg PO BID 30 days #60 tabs 06/21/21 Calcium) loratadine 10 mg tablet 10 mg PO DAILY 90 days #90 t abs 12/02/21 fluticasone propionate 50 1 spray intranasal DAILY 30 days 02/15/22 mcg/actuation nasal #16 grams spray,suspension cholecalciferol (vitamin D3) 50 50 mcg PO DAILY 90 day s #90 caps 06/14/22 mcg (2,000 unit) capsule losartan 100 mg tablet 100 mg PO DAILY 30 days #90 tabs 11/28/22 compr.stocking,knee,long,large #2 ea 12/13/22 diaper,brief,adult,disposable #14 ea 12/13/22 (Briefs, Adult-Extra Large) incontinence pad, liner, disp #96 ea 12/13/22 (Pant Liners, Large Plus pads) miscellaneous medical supply 1 ea miscellaneous DAILY 99 days 12/13/22 #99 ea ferrous sulfate 325 mg (65 mg 325 mg PO BID 30 days #6 0 tabs 12/29/22 iron) tablet ondansetron 8 mg disintegrating 8 mg PO Q12H PRN nause a and 01/09/23 tablet vomiting 5 days #10 tabs atorvastatin 20 mg tablet 20 mg PO DAILY 90 days #90 t abs 01/16/23 acetaminophen 650 mg 1,300 mg (2 x 650 mg) PO Q8H PRN 06/06/23 tablet,extended release (Arthritis pain #84 tabs Pain Relief (acetaminophen) ER) amiodarone 200 mg tablet 200 mg PO DAILY 30 days #30 tabs 10/02/23 pantoprazole 40 mg tablet,delayed 40 mg PO DAILY #90 t abs 11/15/23 release furosemide 20 mg tablet (Lasix) 20 mg PO DAILY shortne ss of breath 03/21/24 #90 tabs apixaban 5 mg tablet (Eliquis) 5 mg PO BID 90 days #18 0 tabs 01/13/25 carvedilol 3.125 mg tablet 3.125 mg PO BID 90 days #18 0 tabs 01/13/25 Allergies Allergy/AdvReac Type Severity Reaction Status Date / Time Penicillins (PENICILLINS) Allergy Intermediate RASH Verified 02/01/25 16:03 pravastatin Allergy Unknown Rash Verified 02/01/25 16:03 Review of Systems 2 Review of Systems: Yes all other systems are reviewed and are negative [facility] Past Medical History Attestation statement: The following information was validated with the patient. Source: old records reviewed and nursing notes reviewed Medical History Breast cancer Arthritis Systolic murmur Atrial fibrillation Anemia Tricuspid regurgitation Embolic stroke Atrial flutter Hemiparesis of left side of face Near syncope Depression HAYLIE (generalized anxiety disorder) Invasive ductal carcinoma of breast, stage 3 Asthma HLD (hyperlipidemia) DMII (diabetes mellitus, type 2) HTN (hypertension) Surgical History History of colonoscopy Hx of total mastectomy of right breast History of lumpectomy of right breast History of breast biopsy History of tubal ligation History of bladder surgery Family History Family History Father No problems noted. Mother No problems noted. Social History Social History Household Members: Family Housing: House Alcohol intake: never Patient Tobacco Use Status: Former Tobacco user e-Cigarette/Vaping Use: Never Used Second Hand Smoke Exposure: Yes Advance Directives: No Advance Directives Information Provided: No Do you have a plan to hurt others: No Plan service: No Current occupational status: disabled Cognitive needs: No Hearing needs: No Vision needs: Yes (glasses) Physical Exam 2 Vital Signs: Vital Signs: Last Vital Signs Temp 97.1 F 02/01/25 19:10 Pulse 66 02/01/25 19:10 Resp 16 02/01/25 19:10 BP 125/49 L 02/01/25 19:10 Pulse Ox 97 02/01/25 19:10 O2 Del Method Room Air 02/01/25 19:10 BMI result Body Mass Index 41.0 vital signs stable General: Well appearing, in no acute distress. Skin: Warm, dry, intact. No rashes or lesions. Head: ecchymosis/hematoma noted to right forehead/temporal region. No raccoon eyes or michaud sign. No palpable skull fracture. EENT: Hearing is intact b/l. Conjunctiva clear. PERRLA. EOM intact. Moist mucous membranes.?No septal hematoma. dentition intact. Neck: No midline cervical spinous tenderness. Full ROM intact. Cardiac: Chest wall symmetric. RRR. Lungs: Normal respiratory effort without accessory muscle use. CTA bilaterally. Abdomen: Soft, non-tender, non-distended. No rebound tenderness or guarding. Positive BS x4. Back: No midline spinous tenderness or step-off deformity. No paraspinal muscle tenderness to palpation. Ext: Upper and lower extremities atraumatic, without tenderness, deformity, swelling or erythema Neuro: AOx3. Normal speech. NIH 0. Strength 5/5 intact throughout. No saddle anesthesia. Sensation intact to light touch. Ambulating with steady gait. Course Course Course Narrative: This is a Rapid Medical Exam performed in triage by Venita Butt PA-C. Full HPI, ROS and PE to be performed by primary ED provider. 79-year-old Grenadian-speaking female w/PMHx AFib on Eliquis, CVA, asthma, HLD, diabetes, HTN presenting to the ED c/o headache/left shoulder pain s/p mechanical trip & fall around 1330 today. Admits to hitting right side of head. States she was on the floor unable to get up. Reports initial nausea. Denies at present. Denies vomiting. Denies symptoms prior to fall PE: + ecchymosis/hematoma noted to right forehead/temporal region. Ambulating with steady gait Plan: EKG, labs, head/C-spine CT, x-ray Reevaluation(s) Reevaluation #1: CBC without leukocytosis or left shift. no anemia, h&h stable. chemistry without acute electrolyte abnormality requiring intervention. no dino. liver function around baseline. ekg showing rate controlled afib without acute ischemic changes or st elevations. imaging unremarkable. Patient has remained stable throughout ED visit today. Discussed worrisome signs and symptoms and when to return to the ED. All questions answered at this time. Patient is agreeable with disposition and stable for discharge. Medical Decision Making Medical Decision Making MDM Narrative: 79 year old female with pmhx significant for HTN, T2DM, HLD, asthma, stage 3 breast cancer, HAYLIE, depression, OA, atrial fibrillation on AC, CVA, anemia presents to the ED today with family for evaluation s/p mechanical fall occurring around 1330 today. Differential diagnosis includes msk sprain/strain, contusion, fracture. Unlikely NV compromise, threat to limb, compartment syndrome. Concern for closed head injury, concussion, ICH, traumatic bleed. Plan for labs, UA, imaging, ekg, and re-evaluation. Differential Diagnosis Differential Diagnoses: The differential diagnosis associated with the presentation includes as above. Admission/Observation not indicated. Lab Data MDM Lab Attestation statement: I reviewed the patient's lab results. as above. 02/01/25 17:28 02/01/25 17:28 Labs: Lab Results 02/01/25 Range/Units 17:28 WBC 7.9 (4.8-10.8) X10*3/uL RBC 4.66 (4.20-5.50) X10*6/uL Hgb 14.8 (12.0-16.0) g/dl Hct 44.6 (37.0-47.0) % MCV 95.7 (80.0-98.0) fL MCH 31.8 (27.0-33.0) pg MCHC 33.2 (31.0-35.0) g/dl RDW 13.6 (11.0-16.0) % Plt Count 271 (160-400) X10*3/uL MPV 9.9 (9.4-12.3) fL Immature Gran % (Auto) 0.4 (0.0-0.4) % Neut % (Auto) 60.0 (45-73) % Lymph % (Auto) 25.0 (20-40) % [place] % (Auto) 11.8 H (2-11) % Eos % (Auto) 1.8 (0-4) % Baso % (Auto) 1.0 (0-2) % Lymph # (Auto) 2.0 (1.2-4.9) X10*3/uL [place] # (Auto) 0.9 (0.1-1.2) X10*3/uL Eos # (Auto) 0.1 (0.0-0.4) X10*3/uL Baso # (Auto) 0.1 (0.0-0.2) X10*3/uL Abs Immat Gran (auto) 0.03 (0.00-0.03) X10*3/uL Absolute Neuts (auto) 4.7 (2.0-8.3) x10*3/uL Absolute Nucleated RBC 0.000 (0.0-0.012) X10*3/uL Nucleated RBC % (auto) 0.0 (0.0-0.2) /100WBC PT 14.7 H (10.9-12.4) SEC INR 1.3 H (0.9-1.1) Sodium 143 (135-145) mmol/L Potassium 5.1 D (3.3-5.1) mmol/L Chloride 105 (96-108) mmol/L Carbon Dioxide 29 (22-29) mmol/L Anion Gap 14 (12-20) BUN 13 (9-16) mg/dL Creatinine 1.23 (0.5-1.4) mg/dL Estim Creat Clear Calc 41.1 Estimated GFR 42 Random Glucose 89 (60-115) mg/dL Calcium 10.2 D (8.4-10.2) mg/dL Magnesium 2.2 (1.6-2.6) mg/dL Total Bilirubin 0.8 (0.0-1.0) mg/dL Direct Bilirubin 0.2 (0.0-0.5) mg/dL AST 41 H (5-31) U/L ALT 40 H (0-31) U/L Alkaline Phosphatase 82 (39-117) U/L Total Creatine Kinase 67 (26-140) U/L Total Protein 7.7 (6.5-8.0) g/dL Albumin 4.5 (3.5-5.0) g/dL Urine Color Yellow Urine Appearance Clear Urine pH 5.5 (5.0-9.0) Ur Specific [place] 1.010 (1.005-1.025) Urine Protein Negative (Neg-Trace) mg/dL Urine Glucose (UA) Negative (Negative) mg/dL Urine Ketones Negative (Negative) mg/dL Urine Blood Negative (Negative) Urine Nitrite Negative (Negative) Ur Leukocyte Esterase Small (1+) H (Negative) Urine RBC 0-2 (0-2) /HPF Urine WBC 0-5 (0-5) /HPF Ur Squamous Epith Cells 3-5 (0-2) /HPF Urine Bacteria None Seen (None Seen) Hyaline Casts 0-2 (0-2) /LPF Independent Interpretation I performed an independent interpretation of an: EKG, Plain X-Ray and CT Scan Interpretation: ct head without bleed ct cervical spine without fracture ekg showing afib, rate controlled, no acute ischemic changes or st elevations, RBBB evident on prior EKGs xr right shoulder w/o fracture or dislocation Radiology Impression Radiologist Impression: Procedure(s): CT head/brain wo IV con Accession Number(s): [id number] cc: Flor Oliva; Venita Butt~ Report Number: [id number]: Total DLP = 0.00 mGy-cm Reason for Exam: fall + head strike. On Eliquis CLINICAL HISTORY: fall + head strike. On Eliquis CT head without contrast Comparison: 10/16/2022 Findings: No intracranial mass, midline shift, hydrocephalus, or acute hemorrhage. No CT evidence of acute ischemia. Visualized paranasal sinuses and mastoid air cells normal. Orbits unremarkable. No skull fracture Impression: 1. No acute intracranial abnormalities. This document has been electronically signed by: Eladio Stanton MD on 02/01/2025 18:11:45 Procedure(s): CT cervical spine wo IV con Accession Number(s): [id number] cc: Flor Oliva; Venita Butt~ Report Number: [id number]: Total DLP = 1333.00 mGy-cm Reason for Exam: fall on eliquis CLINICAL HISTORY: fall on eliquis CT cervical spine without contrast Comparison: None Findings: Normal limited view of the intracranial contents. Soft tissues of the neck are normal. Lung apices are normal. Normal vertebral body alignment. No fractures or dislocations. Minimal degenerative disc changes are present, slightly more prominent at C5-6 level. Impression: 1. No cervical vertebral fracture or traumatic malalignment. This document has been electronically signed by: Eladio Stanton MD on 02/01/2025 18:11:31 Date of Service: 02/01/25 Procedure(s): XR shoulder RT min 2V Accession Number(s): [id number] cc: Flor Oliva; Venita Butt~ Reason for Exam: fall L shoulder pain CLINICAL HISTORY: fall L shoulder pain 3 views right shoulder Comparison: None Findings: No fractures or dislocations. No significant arthritic change. No radiopaque foreign body. Normal visualized right chest. Impression: 1. Unremarkable right shoulder This document has been electronically signed by: Eladio Stanton MD on 02/01/2025 17:09:52 Independent Historian Clinical information obtained from an independent historian. History obtained from or confirmed by: Other (grandson) External Record Review External record reviewed: Inpatient record Chronic Conditions Patient?s care impacted by: Diabetes, Hypertension and Cancer Social Determinants Patient?s care significantly limited by Social Determinants of Health including: Other Social Determinant of Health Critical Care Time Critical Care Time Critical Care Time: No Discharge Plan Discharge Clinical Impression: Fall, Closed head injury Patient Disposition: Home, Self-Care Instructions: Head Injury (ED) Additional Instructions: You were evaluated in the ED today following a fall. Your blood work is reassuring. Your urine does not demonstrate infection. The x-ray of your right shoulder does not demonstrate fracture. The CT scans of your head and neck are normal. There is no intracranial bleed or fracture. I recommend Tylenol at home as needed for pain/discomfort. Return with any new or worsening symptoms. In the case of an emergency call 911 Prescriptions: No Action (DME) lancets [FreeStyle Lancets] 28 gauge misc See Rx Instructions .ROUTE .MEDSUPPLY Qty: 100 1RF Rx Instructions: As directed (DME) FreeStyle Lite Strips Strip See Rx Instructions .ROUTE .MEDSUPPLY Qty: 50 1RF Rx Instructions: As directed (DME) blood-glucose meter [FreeStyle Lite Meter] Kit See Rx Instructions .Route Qty: 1 0RF Rx Instructions: As directed albuterol sulfate [Ventolin HFA] 90 mcg/actuation HFA aerosol inhaler 2 puff PO Q6H PRN (Reason: shortness of breath or wheezing) 30 Days Qty: 18 3RF loratadine 10 mg tablet 10 mg PO DAILY 90 Days Qty: 90 2RF cholecalciferol (vitamin D3) 50 mcg (2,000 unit) capsule 50 mcg PO DAILY 90 Days Qty: 90 2RF losartan 100 mg tablet 100 mg PO DAILY 30 Days Qty: 90 1RF ferrous sulfate 325 mg (65 mg iron) tablet 325 mg PO BID 30 Days Qty: 60 1RF ondansetron 8 mg tablet,disintegrating 8 mg PO Q12H PRN (Reason: nausea and vomiting) 5 Days Qty: 10 0RF atorvastatin 20 mg tablet 20 mg PO DAILY 90 Days Qty: 90 2RF acetaminophen [Arthritis Pain Relief (acetam)] 650 mg tablet extended release 1,300 mg PO Q8H PRN (Reason: pain) Qty: 84 3RF amiodarone 200 mg tablet 200 mg PO DAILY 30 Days Qty: 30 6RF pantoprazole 40 mg tablet,delayed release (DR/EC) 40 mg PO DAILY Qty: 90 1RF furosemide [Lasix] 20 mg tablet 20 mg PO DAILY Qty: 90 1RF carvedilol 3.125 mg tablet 3.125 mg PO BID 90 Days Qty: 180 3RF Rx Instructions: must administer with a meal/food Eliquis 5 mg tablet 5 mg PO BID 90 Days Qty: 180 3RF hydroxyzine HCl 25 mg tablet 25 mg PO BEDTIME PRN (Reason: itch) calcium carbonate [Oyster Shell Calcium] 500 mg calcium (1,250 mg) tablet 500 mg PO BID 30 Days Qty: 60 6RF fluticasone propionate 50 mcg/actuation spray,suspension 1 spray intranasal DAILY 30 Days Qty: 16 3RF Rx Instructions: administer into each nostril miscellaneous medical supply Misc 1 ea miscellaneous DAILY 99 Days Qty: 99 0RF Rx Instructions: need for safety grab bar x 3 (DME) Briefs, Adult-Extra Large Misc See Rx Instructions .Route Qty: 14 6RF Rx Instructions: Need for XL adult briefs (DME) Pant Liners, Large Plus Pad See Rx Instructions .Route Qty: 96 6RF Rx Instructions: As directed (DME) compr.stocking,knee,long,large Misc See Rx Instructions .Route Qty: 2 0RF Rx Instructions: Need for 10-15 mmHg impression gabapentin 100 mg capsule 100 mg PO BID mecobalamin (vitamin B12) 500 mcg tablet,chewable PO duloxetine [Cymbalta] 60 mg capsule,delayed release(DR/EC) 60 mg PO DAILY Referrals: Flor Oliva FNP [Primary Care Provider, Family Practice] Discharge Date/Time: 02/01/25 19:20 Print Language: Grenadian
[2025-02-01 15:59] VITALS: BP 126/58; PULSE 72; RESP 18; TEMP 36.6; O2SAT 97; BMI 41.0
--- NOTE | 2025-02-01 16:03 | ECG_ITS ---
Test Reason : fall Blood Pressure : */* mmHG Vent. Rate : 75 BPM Atrial Rate : * BPM P-R Int : * ms QRS Dur : 114 ms QT Int : 422 ms P-R-T Axes : * -16 12 degrees QTcB Int : 471 ms Atrial fibrillation Right bundle branch block Abnormal ECG When compared with ECG of 29-Mar-2023 12:34, Atrial fibrillation has replaced Sinus rhythm Referred By: Venita Butt Electronically Signed By: ADOLFO SAWYER MD
--- NOTE | 2025-02-01 16:24 | MHC.EDTECH ---
Tried calling for EKG but went to CT before I could get it done
[2025-02-01 17:34] LABS: Hematocrit 44.6 % (37.0-47.0); Hemoglobin 14.8 g/dl (12.0-16.0); Imm Gran Abs Auto 0.03 X10*3/uL (0.00-0.03); Imm Gran Pct Auto 0.4 % (0.0-0.4); Lymphocytes Absolute Auto 2.0 X10*3/uL (1.2-4.9); MANUAL DIFF FLAG NO; Mean Corpuscular HGB Conc 33.2 g/dl (31.0-35.0); Mean Corpuscular Hemoglobin 31.8 pg (27.0-33.0); Mean Corpuscular Volume 95.7 fL (80.0-98.0); NRBC Abs Auto 0.000 X10*3/uL (0.0-0.012); NRBC Pct Auto 0.0 /100WBC (0.0-0.2); Platelet Count 271 X10*3/uL (160-400); Red Blood Count 4.66 X10*6/uL (4.20-5.50); White Blood Count 7.9 X10*3/uL (4.8-10.8)
[2025-02-01 17:36] LABS: Appearance Urine Clear; Glucose Urine UA Negative (Negative); PH 5.5 (5.0-9.0); Specific Gravity - Urine 1.010 (1.005-1.025); UMIC TRIGGER UACC YES
[2025-02-01 17:40] LABS: INTERNATIONAL NORM RATIO 1.3 (0.9-1.1); Prothrombin Time 14.7 SEC (10.9-12.4)
[2025-02-01 17:48] LABS: UACC Culture Trigger YES
[2025-02-01 17:49] LABS: Alanine Aminotransferase 40 U/L (0-31); Albumin Level 4.5 g/dL (3.5-5.0); Alkaline Phosphatase 82 U/L (39-117); Anion Gap 14 (12-20); Aspartate Amino Transferase 41 U/L (5-31); Blood Urea Nitrogen 13 mg/dL (9-16); Calcium 10.2 mg/dL (8.4-10.2); Carbon Dioxide 29 mmol/L (22-29); Chloride 105 mmol/L (96-108); Creatinine Clr Calc Pharmacy 41.1; Estimated Glomerular Filt Rate 42; Magnesium 2.2 mg/dL (1.6-2.6); Potassium 5.1 mmol/L (3.3-5.1); Sodium 143 mmol/L (135-145); Total Protein 7.7 g/dL (6.5-8.0)
[2025-02-01 19:10] VITALS: BP 125/49; PULSE 66; RESP 16; TEMP 36.2; O2SAT 97
== END 2025-02-01 19:20 | disposition home or self-care (01) ==
PROVIDERS: Physician Assistant; Emergency Provider Emergency Medicine Emergency Medical Services; PCP Nurse Practitioner Family
DX: S09.90XA Unspecified injury of head, initial encounter (principal); W18.39XA Other fall on same level, initial encounter; Y93.9 Activity, unspecified; Y92.9 Unspecified place or not applicable; Y99.9 Unspecified external cause status; I48.91 Unspecified atrial fibrillation; I10 Essential (primary) hypertension; Z79.01 Long term (current) use of anticoagulants; Z79.899 Other long term (current) drug therapy
CPT/HCPCS: 36415; 70450; 72125; 73030; 80048; 80076; 81001; 82550; 83735; 85025; 85610; 87086; 93005; 99283; 99284

== ENCOUNTER → 2025-02-01 16:03 | Outpatient (BNV) | payer OTHER, SELFPAY | PROVIDERS: Emergency Provider Emergency Medicine Emergency Medical Services; PCP Nurse Practitioner Family; Visit Provider Internal Medicine Cardiovascular Disease | DX: I48.91 Unspecified atrial fibrillation (principal); I45.10 Unspecified right bundle-branch block | CPT/HCPCS: 93010 ==